=== PATIENT | male | born 1965 | race Caucasian/White ===

== ENCOUNTER 2017-08-29 10:21 | Day surgery (SDC) | payer BC, MEDICARE, SELFPAY ==
[2017-08-29 10:49] VITALS: BP 112/84; BP 140/83; BP 149/88; PULSE 74; PULSE 84; PULSE 99; RESP 18; RESP 20; TEMP 36.2; O2SAT 94
--- NOTE | 2017-08-29 11:12 | HMH.PMPROC ---
- Procedure Date: 08/29/17 Time: 11:12 Anesthesiologist:: Mani Christine MD Complications:: None Pre-procedure Diagnosis:: Sacroiliitis Post-procedure Diagnosis:: Same Indications for Procedure:: This patient is a pleasant 51-year-old white male who we are treating for degenerative disease of the cervical spine with cervical postlaminectomy syndrome and degenerative disease of lumbar spine. He currently has an intrathecal morphine pain pump in place. He is doing well with his intrathecal pain pump. He has some increasing pain over both SI joint. He does have a positive Geno's test bilaterally. He is tender over both SI joints. We will do bilateral SI joint injections under fluoroscopy today. Procedure Details:: B/L SI joint injection under fluoroscopy Informed consent was obtained and the risks and benefits of the procedure was explained to the patient. The patient was taken to the procedure room and placed prone on the procedure table. The patient was prepped using ChloraPrep. The skin and subcutaneous tissues overlying the SI joints were anesthetized using lidocaine. I placed a 22-gauge needle first in the left SI joint and second in the right SI joint. Needle placement was confirmed with dye. After this we injected 5 mL bupivacaine 0.25% and Depo-Medrol 40 mg into each SI joint. Patient tolerated the procedure well with no complication. Plan and Disposition:: We will follow-up with him in 2 weeks. We will reevaluate his symptoms at that time.
[2017-08-29 12:01] VITALS: BP 142/85; PULSE 90; RESP 18; O2SAT 96
== END 2017-08-29 11:30 | disposition home or self-care (01) ==
LOC: SC.PAINP 10:29
PROVIDERS: Family Provider Internal Medicine; PCP Internal Medicine; Visit Provider Anesthesiology
DX: M46.1 Sacroiliitis, not elsewhere classified (principal)
CPT/HCPCS: 27096; G0260; J1030

== ENCOUNTER 2017-12-23 12:52 | Day surgery (SDC) | payer BC, MEDICARE, SELFPAY ==
[2017-12-23 13:05] VITALS: BP 139/79; PULSE 79; RESP 18; TEMP 36.6; O2SAT 98; BMI 33.7
--- NOTE | 2017-12-23 13:13 | HMH.PMPROC ---
- Procedure Date: 12/23/17 Time: 13:20 Anesthesiologist:: Aleja Knowles APRN Complications:: None Pre-procedure Diagnosis:: Degenerative disc disease cervical spine multiple levels. Cervical postlaminectomy syndrome. Lumbar degenerative disc. Bilateral sacroiliitis. Post-procedure Diagnosis:: Same Indications for Procedure:: Patient is a pleasant 52-year-old white male who presents today for intrathecal pain pump refill. Patient has been doing well with his intrathecal morphine infusion of 0.55 mg per day. Patient denies any side effects. Patient states that most of his pain is in his neck and in his low back. Patient states that activity makes it worse. ROS General: no recent weight change, no fever, no sleep disturbances Respiratory: no cough, no shortness of air, no recurring pulmonary infections Cardiovascular/Peripheral Vascular: No chest pain, No palpitations, no edema, no shortness of breath. Gastrointestinal: no incontinence, normal bowel movements reported Genitourinary: no incontinence Musculoskeletal: Back pain, bilateral SI joint pain, neck pain Psychiatric: normal mood/ affect, Neurological: [denies weakness in extremities], [denies balance issues] Physical Exam General: Alert and oriented x3, no acute distress, pleasant and cooperative, [on room air] Lungs: Resps E/U, Symmetrical chest expansion, Eyes: PERRL Musculoskeletal: Flexion and extension of lumbar and cervical spine somewhat guarded secondary to pain, deep tendon reflexes normal, strength in upper and lower extremities [5/5], slightly antalgic gait noted Neurological: speech clear, community manager equal, no gross sensory deficits Procedure Details:: Informed consent was obtained and the risk and benefits of the procedure were explained to the patient. The patient was taken to the procedure room where noninvasive monitoring was placed including noninvasive blood pressure cuff and pulse oximeter. Patient's pump was interrogated. The area over the pump was cleansed with chlorhexidine as a cleansing solution. In sterile fashion the pump was accessed with a 22-gauge needle. Approximately 4 mL's were removed of the pump solution and discarded appropriately. The pump was then refilled with 20 mL's of pain 5 mg/mL. The infusion rate was up to 0.5 times per day. The needle was withdrawn and a bandage was placed over the puncture site. the patient tolerated the procedure well. Plan and Disposition:: We will follow-up with this patient and his next pain pump refill. Patient has been instructed to call us if he has any issues prior to his appointment. Also send the patient for urine drug screen today. This note was dictated using voice recognition software and may contain errors or omissions
[2017-12-23 13:18] VITALS: BP 145/89; PULSE 84; RESP 18; O2SAT 94
[2017-12-23 13:20] VITALS: BP 135/82; PULSE 88; RESP 18; O2SAT 95
--- NOTE | 2017-12-23 13:24 | P.PCN_ITS ---
- Procedure Date: 12/23/17 Time: 13:20 Anesthesiologist:: Aleja Knowles APRN Complications:: None Pre-procedure Diagnosis:: Degenerative disc disease cervical spine multiple levels. Cervical postlaminectomy syndrome. Lumbar degenerative disc. Bilateral sacroiliitis. Post-procedure Diagnosis:: Same Indications for Procedure:: Patient is a pleasant 52-year-old white male who presents today for intrathecal pain pump refill. Patient has been doing well with his intrathecal morphine infusion of 0.55 mg per day. Patient denies any side effects. Patient states that most of his pain is in his neck and in his low back. Patient states that activity makes it worse. ROS General: no recent weight change, no fever, no sleep disturbances Respiratory: no cough, no shortness of air, no recurring pulmonary infections Cardiovascular/Peripheral Vascular: No chest pain, No palpitations, no edema, no shortness of breath. Gastrointestinal: no incontinence, normal bowel movements reported Genitourinary: no incontinence Musculoskeletal: Back pain, bilateral SI joint pain, neck pain Psychiatric: normal mood/ affect, Neurological: [denies weakness in extremities], [denies balance issues] Physical Exam General: Alert and oriented x3, no acute distress, pleasant and cooperative, [ on room air] Lungs: Resps E/U, Symmetrical chest expansion, Eyes: PERRL Musculoskeletal: Flexion and extension of lumbar and cervical spine somewhat guarded secondary to pain, deep tendon reflexes normal, strength in upper and lower extremities [5/5], slightly antalgic gait noted Neurological: speech clear, lead etl developer equal, no gross sensory deficits Procedure Details:: Informed consent was obtained and the risk and benefits of the procedure were explained to the patient. The patient was taken to the procedure room where noninvasive monitoring was placed including noninvasive blood pressure cuff and pulse oximeter. Patient's pump was interrogated. The area over the pump was cleansed with chlorhexidine as a cleansing solution. In sterile fashion the pump was accessed with a 22-gauge needle. Approximately 4 mL's were removed of the pump solution and discarded appropriately. The pump was then refilled with 20 mL's of pain 5 mg/mL. The infusion rate was up to 0.5 times per day. The needle was withdrawn and a bandage was placed over the puncture site. the patient tolerated the procedure well. Plan and Disposition:: We will follow-up with this patient and his next pain pump refill. Patient has been instructed to call us if he has any issues prior to his appointment. Also send the patient for urine drug screen today. This note was dictated using voice recognition software and may contain errors or omissions
[2017-12-23 13:30] VITALS: BP 126/77; PULSE 77; RESP 18; TEMP 36.6; O2SAT 96
[2017-12-23 14:55] LABS: Amphetamine/Metha Screen,Urine Negative ng/mL (<1000); Barbiturates Screen,Urine Negative ng/mL (<200); Benzodiazepines Screen,Urine Negative ng/mL (200); Cannabinoid Screen,Urine Negative ng/mL (<50); Cocaine Screen,Urine Negative ng/g (<300); Methadone Screen,Urine Negative ng/mL (<300); Opiate Screen,Urine Positive ng/mL (<300); Phencyclidine Screen,Urine Negative ng/mL (<25)
[2017-12-30 18:11] LABS: Codeine Negative (Cutoff=100); Hydrocodone Negative (Cutoff=100); Hydromorphone Negative (Cutoff=100); Morphine Positive (.); Oxycodone (GC/MS) 2230 ng/mL (Cutoff=100)
[2018-01-01 06:15] LABS: Opiates Positive (.); Oxymorphone (GC/MS) 2450 ng/mL (Cutoff=100)
== END 2017-12-23 13:49 | disposition home or self-care (01) ==
PROVIDERS: Family Provider Internal Medicine; PCP Internal Medicine; Visit Provider Clinical Nurse Specialist Family Health
DX: M50.30 Other cervical disc degeneration, unspecified cervical region (principal); M96.1 Postlaminectomy syndrome, not elsewhere classified; M51.36 Other intervertebral disc degeneration, lumbar region; M46.1 Sacroiliitis, not elsewhere classified
CPT/HCPCS: 62370; 80305; 80361; 80365; G0480

== ENCOUNTER → 2020-01-02 10:02 | Outpatient (CLI) | payer OTHER, MEDICARE, SELFPAY ==
[2020-01-03 17:04] LABS: Covid-19 Nasal PCR Sendout UK Not Detected
== END ==
PROVIDERS: PCP Internal Medicine; Visit Provider Anesthesiology
DX: Z03.818 Encounter for observation for suspected exposure to other biological agents ruled out (principal)
CPT/HCPCS: U0003

== ENCOUNTER 2020-01-04 13:01 | Day surgery (SDC) | payer OTHER, MEDICARE, SELFPAY ==
[2020-01-04 13:09] VITALS: BP 141/81; PULSE 103; RESP 18; O2SAT 96; BMI 30.4
[2020-01-04 13:25] VITALS: BP 116/71; PULSE 93; RESP 20; O2SAT 95
[2020-01-04 13:27] VITALS: BP 120/85; PULSE 90; RESP 20; O2SAT 96
[2020-01-04 13:32] VITALS: BP 122/73; PULSE 85; RESP 18; O2SAT 96
--- NOTE | 2020-01-04 13:36 | HMH.PMPROC ---
- Procedure Date: 01/04/20 Time: 13:36 Anesthesiologist:: Aleja Knowles APRN Complications:: None Pre-procedure Diagnosis:: Degenerative disc disease lumbar spine with lumbar postlaminectomy syndrome Post-procedure Diagnosis:: Same Indications for Procedure:: Patient is a pleasant 54-year-old male who presents today for intrathecal pain pump refill and reprogram he rates his pain today a 4 out of 10 overall doing well. He does not need any changes to his 0.55 mg of morphine infusion. Patient recently had a left total knee replacement. Overall doing well with this however he did have a reaction post surgery to latex utilizing physical therapy which did set him back somewhat. [facility] #[id number] reviewed and appropriate. Patient did get some pain medication orally during his recovery From his surgery. Procedure Details:: I pain pump refill informed consent was obtained and the risk and benefits of the procedure were explained to the patient. The patient was taken to the procedure room where noninvasive monitoring was placed including noninvasive blood pressure cuff and pulse oximeter. Patient's pump was interrogated. The area over the pump was cleansed with chlorhexidine as a cleansing solution. In sterile fashion the pump was accessed with a 22-gauge needle. Approximately 9.5 mL's were removed of the pump solution and discarded appropriately. The pump was then refilled with 20 mL's of pain 7 mg/mL. The needle was withdrawn and a bandage was placed over the puncture site. The infusion rate was reprogrammed to continue at 0.55 mg/day. The patient tolerated the procedure well. Plan and Disposition:: We will see the patient back at his next intrathecal pain pump refill and reprogram he is been instructed to call the office if he has any issues prior to his next appointment. Dr. Christine has reviewed this note and agrees with this plan of care. This note was dictated using voice recognition software and may contain errors or omissions
== END 2020-01-04 13:32 | disposition home or self-care (01) ==
LOC: SC.PAINP 13:03
PROVIDERS: PCP Internal Medicine; Visit Provider Clinical Nurse Specialist Family Health
DX: M51.36 Other intervertebral disc degeneration, lumbar region (principal); M96.1 Postlaminectomy syndrome, not elsewhere classified
CPT/HCPCS: 95991

== ENCOUNTER 2020-05-08 14:46 | Day surgery (SDC) | payer OTHER, MEDICARE, SELFPAY ==
[2020-05-08 14:56] VITALS: BP 136/65; PULSE 93; RESP 18; TEMP 37; O2SAT 98; BMI 30.4
[2020-05-08 15:17] VITALS: BP 138/72; PULSE 98; RESP 18; O2SAT 98
[2020-05-08 15:19] VITALS: BP 140/74; PULSE 97; RESP 18; O2SAT 98
--- NOTE | 2020-05-08 15:37 | P.PCN_ITS ---
- Procedure Date: 05/08/20 Time: 15:37 Anesthesiologist:: Aleja Knowles APRN Complications:: None Pre-procedure Diagnosis:: Degenerative disc disease lumbar spine lumbar postlaminectomy syndrome Post-procedure Diagnosis:: Same Indications for Procedure:: Patient is a pleasant 54-year-old white male who presents today for thecal pain pump refill and reprogram he rates his pain today 4 out of 10 and doing well. He does not need any changes he is currently on a 0.55 mg morphine infusion. [facility] #[id number] reviewed and appropriate. Patient did have surgery he did receive medication from the surgeon. Patient denies side effects to his intrathecal therapy. Patient will be getting a drug screen today. Physical Exam General: Alert and oriented x3, no acute distress, pleasant and cooperative, [on room air] Lungs: Resps E/U, Symmetrical chest expansion, Eyes: PERRL Musculoskeletal: Flexion and extension of lumbar spine somewhat guarded secondary to pain, deep tendon reflexes normal, strength in upper and lower extremities [5/5], slightly antalgic gait noted Neurological: speech clear, community health consultant equal, no gross sensory deficits Procedure Details:: Informed consent was obtained and the risk and benefits of the procedure were explained to the patient. The patient was taken to the procedure room where noninvasive monitoring was placed including noninvasive blood pressure cuff and pulse oximeter. Patient's pump was interrogated. The area over the pump was cleansed with chlorhexidine as a cleansing solution. In sterile fashion the pu mp was accessed with a 22-gauge needle under fluoroscopy. Approximately 9 mL's were removed of the pump solution and discarded appropriately. The pump was then refilled with 20 mL's of morphine 10 mg/mL. The needle was withdrawn and a bandage was placed over the puncture site. The infusion rate was reprogrammed to continue to 0.55 mg/day. The patient tolerated the procedure well. Plan and Disposition:: I will follow-up with the patient at his next intrathecal pain pump refill and reprogram. Patient's been instructed to call the office if he has any issues prior to his next appointment. Dr. Christine has reviewed this note and agrees with this plan of care. This note was dictated using voice recognition software and may contain errors or omissions
[2020-05-08 15:42] VITALS: BP 142/80; PULSE 88; RESP 18; O2SAT 94
== END 2020-05-08 15:43 | disposition home or self-care (01) ==
LOC: SC.PAINP 14:52
PROVIDERS: PCP Internal Medicine; Visit Provider Clinical Nurse Specialist Family Health
DX: M51.16 Intervertebral disc disorders with radiculopathy, lumbar region (principal); M96.1 Postlaminectomy syndrome, not elsewhere classified; I10 Essential (primary) hypertension; E78.5 Hyperlipidemia, unspecified; K21.9 Gastro-esophageal reflux disease without esophagitis; F32.9 Major depressive disorder, single episode, unspecified; Z87.39 Personal history of other diseases of the musculoskeletal system and connective tissue; Z90.49 Acquired absence of other specified parts of digestive tract; Z87.442 Personal history of urinary calculi; Z91.040 Latex allergy status
CPT/HCPCS: 95991

== ENCOUNTER 2020-09-04 12:57 | Day surgery (SDC) | payer OTHER, SELFPAY ==
[2020-09-04 13:20] VITALS: BP 116/78; PULSE 63; TEMP 36.6; O2SAT 98; BMI 32.8
[2020-09-04 13:53] VITALS: BP 128/77; PULSE 93; RESP 18; O2SAT 98
[2020-09-04 13:58] VITALS: BP 129/78; PULSE 92; RESP 18; O2SAT 98
--- NOTE | 2020-09-04 14:08 | P.PCN_ITS ---
- Procedure Date: 09/04/20 Time: 14:09 Anesthesiologist:: Aleja Knowles APRN Complications:: None Pre-procedure Diagnosis:: Degenerative disc disease lumbar spine lumbar radiculopathy postlaminectomy syndrome Post-procedure Diagnosis:: Same Indications for Procedure:: Patient is a pleasant 54-year-old white male who presents today for intrathecal pain pump refill and reprogram. He denies any side effects and states he does not need any changes he rates his pain today a 3 out of 10. He is currently in a infusion of 0.55 mg of morphine a day. [facility] #[id number] reviewed and janet ropriate. Drug screens have been appropriate. Physical Exam General: Alert and oriented x3, no acute distress, pleasant and cooperative, [on room air] Lungs: Resps E/U, Symmetrical chest expansion, Eyes: PERRL Musculoskeletal: Flexion and extension of lumbar spine somewhat guarded secondary to pain, deep tendon reflexes normal, strength in upper and lower extremities [5/5], antalgic gait noted Neurological: speech clear, educational sign language interpreter equal, no gross sensory deficits Procedure Details:: Informed consent was obtained and the risk and benefits of the procedure were explained to the patient. The patient was taken to the procedure room where noninvasive monitoring was placed including noninvasive blood pressure cuff and pulse oximeter. Patient's pump was interrogated. The area over the pump was cleansed with chlorhexidine as a cleansing solution. In sterile fashion the pump was accessed with a 22-gauge needle. Approximately 9.5 mL's were removed of the pump solution and discarded appropriately. The pump was then refilled with 20 mL's of morphine 10 mg/mL. The needle was withdrawn and a bandage was placed over the puncture site. The infusion rate was reprogrammed to continue at 0.55 mg/day. The patient tolerated the procedure well. Plan and Disposition:: We will follow up with the patient at his next intrathecal pain pump refill and reprogram he has been instructed to call the office if he has any issues prior to his next appointment. Dr. Christine has reviewed this note and agrees with this plan of care. This note was dictated using voice recognition software and may contain errors or omissions
[2020-09-04 14:15] VITALS: BP 119/72; PULSE 80; RESP 20; O2SAT 98
== END 2020-09-04 14:15 | disposition home or self-care (01) ==
LOC: SC.PAINP 12:58
PROVIDERS: PCP Internal Medicine; Visit Provider Clinical Nurse Specialist Family Health
DX: M51.16 Intervertebral disc disorders with radiculopathy, lumbar region (principal); M96.1 Postlaminectomy syndrome, not elsewhere classified; I25.10 Atherosclerotic heart disease of native coronary artery without angina pectoris; I10 Essential (primary) hypertension; E78.5 Hyperlipidemia, unspecified; K21.9 Gastro-esophageal reflux disease without esophagitis; Z87.39 Personal history of other diseases of the musculoskeletal system and connective tissue; Z87.442 Personal history of urinary calculi; Z90.49 Acquired absence of other specified parts of digestive tract; E11.9 Type 2 diabetes mellitus without complications
CPT/HCPCS: 95991

== ENCOUNTER 2020-12-11 13:14 | Day surgery (SDC) | payer OTHER, SELFPAY ==
[2020-12-11 13:33] VITALS: BP 140/75; PULSE 75; RESP 18; TEMP 36.6; O2SAT 98; BMI 33.5
[2020-12-11 13:55] VITALS: BP 142/77; PULSE 78; RESP 18; O2SAT 99
--- NOTE | 2020-12-11 13:57 | HMH.PMPROC ---
- Procedure Date: 12/11/20 Time: 13:57 Anesthesiologist:: Aleja Knowles APRN Complications:: None Pre-procedure Diagnosis:: Degenerative disc disease lumbar spine lumbar radiculopathy, postlaminectomy syndrome Post-procedure Diagnosis:: Same Indications for Procedure:: Patient is a pleasant 55-year-old white male who presents today for intrathecal pain pump refill and reprogram. He denies side effects with medication he is currently on morphine going at 0.55 mg/day. Patient [facility] #[id number] reviewed and appropriate. Drug screens have been appropriate. He does not need any changes today he rates his pain today a 2 out of 10. Procedure Details:: Informed consent was obtained and the risk and benefits of the procedure were explained to the patient. The patient was taken to the procedure room where noninvasive monitoring was placed including noninvasive blood pressure cuff and pulse oximeter. Patient's pump was interrogated. The area over the pump was cleansed with chlorhexidine as a cleansing solution. In sterile fashion the pump was accessed with a 22-gauge needle. Approximately 11.5 mL's were removed of the pump solution and discarded appropriately. The pump was then refilled with 20 mL's of morphine 7 mg/mL. The needle was withdrawn and a bandage was placed over the puncture site. The infusion rate was reprogrammed to continue at 0.55 mg/day. The patient tolerated the procedure well. Plan and Disposition:: I will see the patient back in at his next intrathecal pain pump refill and reprogram he has been instructed to call the office if he has any issues prior to his next appointment. Dr. Christine has reviewed this note and agrees with this plan of care. This note was dictated using voice recognition software and may contain errors or omissions
[2020-12-11 14:04] VITALS: BP 142/79; PULSE 79; RESP 18; O2SAT 99
[2020-12-11 14:35] VITALS: BP 140/75; PULSE 75; RESP 18; TEMP 36.6; O2SAT 98
[2020-12-11 15:22] LABS: Amphetamine/Metha Screen,Urine Negative ng/ml (<1000)
[2020-12-11 15:23] LABS: Barbiturates Screen,Urine Negative ng/ml (<200); Benzodiazepines Screen,Urine Negative ng/ml (<200)
[2020-12-11 15:24] LABS: Cannabinoid Screen,Urine Negative ng/ml (<50)
[2020-12-11 15:25] LABS: Cocaine Screen,Urine Negative ng/ml (<300); Methadone Screen,Urine Negative ng/ml (<300)
[2020-12-11 15:26] LABS: Opiate Screen,Urine Negative ng/ml (<300)
[2020-12-11 15:28] LABS: Phencyclidine Screen,Urine Negative ng/ml (<25)
== END 2020-12-11 14:15 | disposition home or self-care (01) ==
PROVIDERS: PCP Internal Medicine; Visit Provider Clinical Nurse Specialist Family Health
DX: M51.16 Intervertebral disc disorders with radiculopathy, lumbar region (principal); M96.1 Postlaminectomy syndrome, not elsewhere classified; I25.10 Atherosclerotic heart disease of native coronary artery without angina pectoris; I10 Essential (primary) hypertension; E78.5 Hyperlipidemia, unspecified; M19.90 Unspecified osteoarthritis, unspecified site; E11.9 Type 2 diabetes mellitus without complications; E03.9 Hypothyroidism, unspecified; K21.9 Gastro-esophageal reflux disease without esophagitis; Z90.49 Acquired absence of other specified parts of digestive tract
CPT/HCPCS: 80305; 95991

== ENCOUNTER 2021-04-02 12:53 | Day surgery (SDC) | payer OTHER, SELFPAY ==
[2021-04-02 13:10] VITALS: BP 138/78; PULSE 75; RESP 18; TEMP 36.6; O2SAT 97; BMI 33.5
[2021-04-02 13:18] VITALS: BP 148/94; PULSE 78; RESP 18
--- NOTE | 2021-04-02 13:20 | P.PCN_ITS ---
- Procedure Date: 04/02/21 Time: 13:20 Anesthesiologist:: Allyn Santoyo APRN Complications:: None Pre-procedure Diagnosis:: Degenerative disc disease lumbar spine with lumbar radiculopathy symptoms, postlaminectomy syndrome lumbar spine Post-procedure Diagnosis:: Same Indications for Procedure:: Patient is a 55-year-old white male who presents today for intrathecal pain pump refill and reprogram. He has been treated for degenerative disc disease lumbar spine with lumbar radiculopathy symptoms. Patient rates his pain a 3 out of 10. His [facility] #[id number] is appropriate. Drug screen is appropriate. Morphine equivalent is 0. He does not need any changes at this time. Patient does say he lost his PTC device. He will contact [employer] to get a replacement. He says his boluses did give him significant relief. Physical exam General: Alert and oriented x3, no acute distress, pleasant and cooperative, [on room air] Lungs: Respirations even and unlabored, symmetrical chest expansion Eyes: PERRL Musculoskeletal: Flexion and extension of lumbar [spine] somewhat guarded secondary to pain, strength in upper and lower extremities [5/5], [antalgic gait noted] Neurological: Speech clear, [boilermaker industrial boilers equal], no gross sensory deficit Procedure Details:: Informed consent was obtained and the risk and benefits of the procedure were explained to the patient. The patient was taken to the procedure room where noninvasive monitoring was placed including noninvasive blood pressure cuff and pulse oximeter. Patient's pump was interrogated. The area over the pump was cleansed with chlorhexidine as a cleansing solution. In sterile fashion the pump was accessed with a 22-gauge needle. Approximately 10 mls of the pump solution was removed and discarded appropriately. The pump was then refilled with 20 mL's of morphine 7 mg per male. The needle was withdrawn and a bandage was placed over the puncture site. The infusion rate was reprogrammed at morphine at 0.55 mg/day. The patient tolerated well with no complication. Plan and Disposition:: We will see the patient back at the next refill. If the patient has any questions, contact the clinic.
[2021-04-02 13:23] VITALS: BP 149/90; PULSE 83; RESP 18; O2SAT 95
[2021-04-02 13:40] VITALS: BP 129/70; PULSE 18; PULSE 74; O2SAT 97
[2021-04-02 16:34] LABS: Amphetamine/Metha Screen,Urine Negative ng/ml (<1000)
[2021-04-02 16:36] LABS: Barbiturates Screen,Urine Negative ng/ml (<200)
[2021-04-02 16:37] LABS: Benzodiazepines Screen,Urine Negative ng/ml (<200)
[2021-04-02 16:38] LABS: Cannabinoid Screen,Urine Negative ng/ml (<50); Cocaine Screen,Urine Negative ng/ml (<300)
[2021-04-02 16:39] LABS: Methadone Screen,Urine Negative ng/ml (<300); Opiate Screen,Urine Negative ng/ml (<300)
[2021-04-02 16:40] LABS: Phencyclidine Screen,Urine Negative ng/ml (<25)
[2021-04-11 14:18] LABS: Opiates Negative (Cutoff=100)
== END 2021-04-02 13:40 | disposition home or self-care (01) ==
PROVIDERS: PCP Internal Medicine; Visit Provider Clinical Nurse Specialist Family Health
DX: M51.16 Intervertebral disc disorders with radiculopathy, lumbar region (principal); M96.1 Postlaminectomy syndrome, not elsewhere classified
CPT/HCPCS: 80305; 80361; 80365; 95991; G0480

== ENCOUNTER 2021-07-16 13:06 | Day surgery (SDC) | payer OTHER, SELFPAY ==
--- NOTE | 2021-07-16 13:24 | P.PCN_ITS ---
- Procedure Date: 07/16/21 Time: 13:24 Anesthesiologist:: Allyn Santoyo APRN Complications:: None Pre-procedure Diagnosis:: Degenerative disc disease lumbar spine with lumbar radiculopathy symptoms Post-procedure Diagnosis:: Same Indications for Procedure:: Patient is a pleasant 55-year-old male who presents today for intrathecal pain pump [refill] [and reprogram]. The patient is being treated for chronic neck pain. He does have chronic low back pain. The pump does not give him much relief of the pain to his low back area. He says it is primarily in his hip and knee. He does see an orthopedic provider for this. For his neck, he says he is doing well with his intrathecal therapy. Patient rates pain a 4 out of 10. Drug screen is appropriate. [facility] [ ] has been reviewed and is appropriate. Physical exam General: Alert and oriented x3, no acute distress, pleasant and cooperative, [on room air] Lungs: Respirations even and unlabored, symmetrical chest expansion Eyes: PERRL Musculoskeletal: Flexion and extension of cervical and lumbar [spine] somewhat guarded secondary to pain, [antalgic gait noted] Neurological: Speech clear, no gross sensory deficit Procedure Details:: Informed consent was obtained and the risk and benefits of the procedure were explained to the patient. The patient was taken to the procedure room where noninvasive monitoring was placed including noninvasive blood pressure cuff and pulse oximeter. Patient's pump was interrogated. The area over the pump was cleansed with chlorhexidine as a cleansing solution. In sterile fashion the pump was accessed with a 22-gauge needle. Approximately 11 mls of the pump solution was removed and discarded appropriately. The pump was then refilled with 20 mL's of morphine 7 mg per male. The needle was withdrawn and a bandage was placed over the puncture site. The infusion rate was reprogrammed at morphine at 0.55 mg/day. The patient tolerated well with no complication. Plan and Disposition:: Patient's pump will be end-of-life on June 2022. We will see the patient back in the clinic at the next intrathecal refill. Carlos Alberto scott has been instructed to contact the clinic with any concerns before the next appointment. Dr. Christine has reviewed this note and agrees with this plan of care. This note was dictated using voice recognition software and make contain errors or omissions.
[2021-07-16 13:27] VITALS: BP 147/72; PULSE 108; RESP 18; TEMP 37.3; O2SAT 95; BMI 33.5
[2021-07-16 13:51] VITALS: BP 113/74; PULSE 103; RESP 18; O2SAT 96
[2021-07-16 13:52] VITALS: PULSE 106; RESP 18; O2SAT 94
[2021-07-16 14:05] VITALS: BP 126/80; PULSE 98; RESP 20; O2SAT 97
[2021-07-16 20:18] LABS: Amphetamine/Metha Screen,Urine Negative ng/ml (<1000)
[2021-07-16 20:19] LABS: Barbiturates Screen,Urine Negative ng/ml (<200)
[2021-07-16 20:20] LABS: Benzodiazepines Screen,Urine Negative ng/ml (<200); Cannabinoid Screen,Urine Negative ng/ml (<50)
[2021-07-16 20:21] LABS: Cocaine Screen,Urine Negative ng/ml (<300)
[2021-07-16 20:22] LABS: Methadone Screen,Urine Negative ng/ml (<300)
[2021-07-16 20:23] LABS: Opiate Screen,Urine Negative ng/ml (<300)
[2021-07-16 20:24] LABS: Phencyclidine Screen,Urine Negative ng/ml (<25)
== END 2021-07-16 14:05 | disposition home or self-care (01) ==
LOC: SC.PAINP 13:07
PROVIDERS: PCP Internal Medicine; Visit Provider Clinical Nurse Specialist Family Health
DX: M51.16 Intervertebral disc disorders with radiculopathy, lumbar region (principal); Z45.1 Encounter for adjustment and management of infusion pump
CPT/HCPCS: 80305; 95991

== ENCOUNTER 2021-10-01 14:09 | Day surgery (SDC) | payer OTHER, SELFPAY ==
--- NOTE | 2021-10-01 14:16 | HMH.PMPROC ---
- Procedure Date: 10/01/21 Time: 14:16 Anesthesiologist:: Allyn Santoyo APRN Complications:: None Pre-procedure Diagnosis:: Degenerative disc disease lumbar spine with lumbar radiculopathy symptoms Post-procedure Diagnosis:: Same Indications for Procedure:: Patient is a 56-year-old white male who presents today for intrathecal pain pump refill and reprogram. He is having significant hip pain. He is scheduled to undergo a hip replacement, however, is having issues with his insurance company. They advised the patient he needed to be nicotine free for 6 weeks. Patient has never smoked or used any type of smokeless tobacco. He did have to go for nicotine test. He is currently on morphine at 0.55 mg/day and would like an increase. He denies any side effects. Physical exam General: Alert and oriented x3, no acute distress, pleasant and cooperative Lungs: Respirations even and unlabored, symmetrical chest expansion Eyes: PERRL Musculoskeletal: Flexion and extension of lumbar [spine] somewhat guarded secondary to pain, [antalgic gait noted] Neurological: Speech clear, no gross sensory deficit Procedure Details:: Informed consent was obtained and the risk and benefits of the procedure were explained to the patient. The patient was taken to the procedure room where noninvasive monitoring was placed including noninvasive blood pressure cuff and pulse oximeter. Patient's pump was interrogated. The area over the pump was cleansed with chlorhexidine as a cleansing solution. In sterile fashion the pump was accessed with a 22-gauge needle. Approximately 13 mls of the pump solution was removed and discarded appropriately. The pump was then refilled with 20 mL's of morphine 7 mg/mL. The needle was withdrawn and a bandage was placed over the puncture site. The infusion rate was reprogrammed at increased to morphine at 0.63 mg/day. The patient tolerated well with no complication. Plan and Disposition:: Patient has been instructed to contact the clinic with any concerns before the next appointment. Dr. Christine has reviewed this note and agrees with this plan of care. This note was dictated using voice recognition software and make contain errors or omissions.
[2021-10-01 14:20] VITALS: BP 117/84; PULSE 95; RESP 20; TEMP 36.7; O2SAT 96; BMI 32.2
[2021-10-01 14:42] VITALS: BP 115/80; PULSE 99; RESP 18; O2SAT 95
[2021-10-01 14:46] VITALS: BP 116/82; PULSE 92; RESP 20; O2SAT 96
[2021-10-01 15:00] VITALS: BP 141/81; PULSE 93; RESP 20; O2SAT 96
[2021-10-01 16:32] LABS: Amphetamine/Metha Screen,Urine Negative ng/ml (<1000); Barbiturates Screen,Urine Negative ng/ml (<200)
[2021-10-01 16:33] LABS: Benzodiazepines Screen,Urine Negative ng/ml (<200)
[2021-10-01 16:34] LABS: Cannabinoid Screen,Urine Negative ng/ml (<50); Cocaine Screen,Urine Negative ng/ml (<300)
[2021-10-01 16:35] LABS: Methadone Screen,Urine Negative ng/ml (<300)
[2021-10-01 16:36] LABS: Opiate Screen,Urine Negative ng/ml (<300); Phencyclidine Screen,Urine Negative ng/ml (<25)
[2021-10-14 13:19] LABS: Codeine Negative (Cutoff=100); Hydrocodone Negative (Cutoff=100); Hydromorphone Negative (Cutoff=100); Morphine Positive (.); Opiates Positive (.); Oxymorphone (GC/MS) 204 ng/mL (Cutoff=100)
== END 2021-10-01 15:00 | disposition home or self-care (01) ==
LOC: SC.PAINP 14:10
PROVIDERS: PCP Internal Medicine; Visit Provider Clinical Nurse Specialist Family Health
DX: M51.16 Intervertebral disc disorders with radiculopathy, lumbar region (principal); Z45.1 Encounter for adjustment and management of infusion pump
CPT/HCPCS: 62370; 80305; 80361; 80365; G0480

== ENCOUNTER 2022-01-07 12:52 | Day surgery (SDC) | payer OTHER, SELFPAY ==
[2022-01-07 13:07] VITALS: BP 188/83; PULSE 114; RESP 20; TEMP 36.8; O2SAT 95; BMI 33.5
[2022-01-07 13:19] VITALS: BP 148/92; PULSE 109; RESP 18; O2SAT 95
[2022-01-07 13:23] VITALS: BP 151/92; PULSE 107; RESP 18; O2SAT 96
--- NOTE | 2022-01-07 13:29 | HMH.PMPROC ---
- Procedure Date: 01/07/22 Time: 13:29 Anesthesiologist:: MORAIMA Hein Complications:: None Pre-procedure Diagnosis:: Degenerative disc disease of lumbar spine with lumbar radiculopathy symptoms Post-procedure Diagnosis:: Same Indications for Procedure:: Patient is a pleasant 56-year-old male who presents today for intrathecal pain pump refill and reprogram. The patient is being treated for degenerative disc disease of lumbar spine with lumbar radiculopathy symptoms. Patient is currently being managed with morphine 7 mg/mL at a rate of 0.629 mg/day. Patient denies any side effects from this medication. Patient rates pain a 3 out of 10. Drug screen is appropriate. Serge [id number] with an active morphine equivalent of 0 has been reviewed and is appropriate. Patient's medtronic pump is at end-of-life. We will schedule the patient for a pump replacement around May or June. Physical exam General: Alert and oriented x3, no acute distress, pleasant and cooperative, [on room air] Lungs: Respirations even and unlabored, symmetrical chest expansion Eyes: PERRL Musculoskeletal: Flexion and extension of lumbar [spine] somewhat guarded secondary to pain, [antalgic gait noted] Neurological: Speech clear, no gross sensory deficit Procedure Details:: Informed consent was obtained and the risk and benefits of the procedure were explained to the patient. The patient was taken to the procedure room where noninvasive monitoring was placed including noninvasive blood pressure cuff and pulse oximeter. Patient's pump was interrogated. The area over the pump was cleansed with chlorhexidine as a cleansing solution. [Fluoroscopy was used to access the pump]. In sterile fashion the pump was accessed with a 22-gauge needle. Approximately 11 mls of the pump solution was removed and discarded appropriately. The pump was then refilled with 20 mL's of morphine 7 mg/mL. The needle was withdrawn and a bandage was placed over the puncture site. The infusion rate was reprogrammed and continued at morphine 0.629 mg/day. The patient tolerated well with no complication. Plan and Disposition:: We will see the patient back in the clinic at the next intrathecal refill. Patient has been instructed to contact the clinic with any concerns before the next appointment. Dr. Christine has reviewed this note and agrees with this plan of care. This note was dictated using voice recognition software and make contain errors or omissions.
[2022-01-07 13:40] VITALS: BP 139/81; PULSE 94; RESP 20; O2SAT 97
== END 2022-01-07 13:40 | disposition home or self-care (01) ==
LOC: SC.PAINP 12:53
PROVIDERS: PCP Internal Medicine; Visit Provider Student in an Organized Health Care Education/Training Program
DX: M51.16 Intervertebral disc disorders with radiculopathy, lumbar region (principal); Z45.1 Encounter for adjustment and management of infusion pump; I25.10 Atherosclerotic heart disease of native coronary artery without angina pectoris; I10 Essential (primary) hypertension; E78.5 Hyperlipidemia, unspecified; E11.9 Type 2 diabetes mellitus without complications; E03.9 Hypothyroidism, unspecified; M19.90 Unspecified osteoarthritis, unspecified site; Z90.49 Acquired absence of other specified parts of digestive tract; Z91.040 Latex allergy status; Z79.84 Long term (current) use of oral hypoglycemic drugs; Z79.899 Other long term (current) drug therapy
CPT/HCPCS: 95991

== ENCOUNTER 2022-04-23 10:51 | Day surgery (SDC) | payer OTHER, SELFPAY ==
[2022-04-23 10:54] VITALS: BP 157/70; PULSE 63; RESP 18; TEMP 37.2; O2SAT 98; BMI 33.7
[2022-04-23 11:22] VITALS: BP 133/70; PULSE 86; RESP 18
[2022-04-23 11:23] VITALS: BP 133/70; PULSE 86; RESP 18; O2SAT 96
--- NOTE | 2022-04-23 11:39 | P.PCN_ITS ---
Procedure Date: 04/23/22 Time: 11:40 Anesthesiologist:: Shakeel Luz CRNA Complications:: None Pre-procedure Diagnosis:: Degenerative disc disease lumbar spine multilevels. Lumbar radiculopathy symptoms Post-procedure Diagnosis:: Same Indications for Procedure:: This patient is a pleasant 56-year-old male who presents to our clinic today for intrathecal pain pump refill. He is currently being managed with morphine sulfate 7 mg/mL at a rate of 0.629 mg a day. Patient is doing very well on his current rate. He does not complain of any pain. Does not complain of any side effects. Procedure Details:: Details of the procedure were explained to the patient. The patient taken to procedure room placed in the sitting position. There was some difficulty accessing his Medtronic pump. We laid the patient prone we accessed the pump wi th ease under fluoroscopy guidance. 9 cc of fluid was removed and discarded appropriately. The pump was then filled with 20 cc of morphine sulfate 7 mg/mL. This was done under fluoroscopy guidance. Patient tolerated the procedure without difficulty. There were no complications. Plan and Disposition:: Patient was discharged without incident.
[2022-04-23 11:43] VITALS: BP 142/74; PULSE 77; RESP 18; O2SAT 98
== END 2022-04-23 11:44 | disposition home or self-care (01) ==
PROVIDERS: PCP Internal Medicine; Visit Provider Nurse Anesthetist, Certified Registered
DX: M51.16 Intervertebral disc disorders with radiculopathy, lumbar region (principal)
CPT/HCPCS: 95991

== ENCOUNTER → 2022-06-10 09:29 | Outpatient (POV) | payer OTHER, SELFPAY ==
[2022-06-10 09:57] VITALS: BP 129/78; PULSE 86; RESP 18; TEMP 36.6; O2SAT 96; BMI 33.7
--- NOTE | 2022-06-10 10:57 | EXP.PAIN.SOA ---
[facility] Pain Management SOAP Note Subjective:: Patient is a pleasant 56-year-old male who presents today for follow-up. We are currently treating the patient for degenerative disc disease of lumbar spine multilevels with lumbar radiculopathy symptoms. Today the patient rates his pain a 3 out of 10. He states the pain is primarily in his low back that radiates into his bilateral lower extremities. He is currently managed with morphine 7 mg/mL at a rate of 0.629 mg/day. Patient denies any side effects from this medication. He states this medication does adequately help manage his pain. Patient has had this pump in place for 7 years. He has battery end-of-life date is around June 25 and does need to be scheduled for removal and replacement. Patient patient does have [employer] insurance and was previously in [facility] patient without home refills. Patient is interested in having a replacement however he would like to know the cost before proceeding forward. Patient's Serge is [phone]. It has been reviewed and appropriate. Review of Systems: General: No recent weight changes, no fever, no sleep disturbances Respiratory: No cough, no shortness of air, no recurring pulmonary infections Cardiovascular/peripheral vascular: No chest pain, no palpitations, no edema, no shortness of breath Gastrointestinal: No new onset incontinence, normal bowel movements reported Genitourinary: No new onset incontinence Musculoskeletal: Low back pain, bilateral leg pain Psychiatric: [Normal mood/affect] Neurological: [Denies weakness in extremities], [denies balance issues] Objective:: Physical Exam: General: Alert and oriented x3, no acute distress, pleasant and cooperative Lungs: Respirations even and unlabored, symmetrical chest expansion Eyes: PERRL Musculoskeletal: Flexion and extension of lumbar [spine] somewhat guarded secondary to pain, [antalgic gait noted] Neurological: Speech clear, no gross sensory deficit Assessment:: Degenerative disc disease lumbar spine multilevels with lumbar radiculopathy symptoms Plan:: Patient continues to have significant relief of his low back and radicular symptoms using his intrathecal pump. I have discussed with the patient regarding having a removal and replacement of his pump. Risk and benefits were discussed with the patient. He would like to proceed forward once he has a better idea of the out of pocket cost. Patient will be referred to the billing department and a pump leather goods sales representative will contact the patient to go over details. We will submit for intrathecal pump removal and replacement approval and contact the patient once we have this. Patient has been instructed to contact the clinic with any concerns before the next appointment. Dr. Christine has reviewed this note and agrees with this plan of care. This note was dictated using voice recognition software and make contain errors or omissions. -- It Is medically necessary for this patient to continue to have their intrathecal pump refilled at regular intervals. This patient had an intrathecal pain pump implanted after meeting criteria of chronic intractable pain for greater than 3 months and failing conservative treatments. Patient has committed and been compliant to the treatment plan and all planned follow up care. Since implantation of the intrathecal pain pump, the patient has had decreased pain and been more functional. Oral medications have been reduced including intake of oral opioids. Patient continues to do well with intrathecal therapy with decrease in pain symptoms and increase in functional status. Stopping intrathecal medications can lead to life threatening withdrawal, seizures, cardiac arrest, severe pain, and possible . Pumps that are not refilled at regular intervals can be damages and cause and need for replacement. We continually titrate dose and concentration to optimize pain relief and function. We are limited in concentration for certain drugs to safely deliver me
== END ==
PROVIDERS: PCP Internal Medicine; Visit Provider Nurse Practitioner Family
DX: M51.16 Intervertebral disc disorders with radiculopathy, lumbar region (principal); Z79.899 Other long term (current) drug therapy
CPT/HCPCS: 99212; G0463

== ENCOUNTER 2022-07-02 10:52 | Day surgery (SDC) | payer OTHER, SELFPAY ==
[2022-07-02 11:04] VITALS: BP 141/66; PULSE 88; RESP 18; TEMP 37.2; O2SAT 98; BMI 32.8
[2022-07-02 11:12] VITALS: BP 170/100; PULSE 84; RESP 18; O2SAT 98
[2022-07-02 11:13] VITALS: BP 170/100; PULSE 84; RESP 18; O2SAT 98
[2022-07-02 11:40] VITALS: BP 117/68; PULSE 82; RESP 18; O2SAT 98
--- NOTE | 2022-07-02 11:56 | EXP.PAIN.PRO ---
Procedure Date: 07/02/22 Time: 11:30 Anesthesiologist:: Shakeel Luz CRNA Complications:: None Pre-procedure Diagnosis:: Degenerative disc disease lumbar spine multilevels. Lumbar radiculopathy. Post-procedure Diagnosis:: Same. Indications for Procedure:: Patient is a pleasant 56-year-old male who presents today for intrathecal pain pump refill. Patient is reaching end-of-life with his current pump of 7 years. We will arrange for him to have pump replacement next month. He is currently being managed with morphine sulfate 7 mg/mL at 0.6296 mg/day. He is doing very well on his current settings. Procedure Details:: Details of the procedure were explained to the patient. The patient taken the procedure room placed in the sitting position. The area over the pump was cleansed using chlorhexidine as a cleansing solution. The pump was then accessed with ease using a 22-gauge needle. 13 mL of solution was removed and discarded appropriately. The pump was then filled with 20 cc of morphine sulfate 7 mg/mL. Plan and Disposition:: Patient was discharged without incident.
== END 2022-07-02 11:40 | disposition home or self-care (01) ==
LOC: SC.PAINP 10:53
PROVIDERS: PCP Internal Medicine; Visit Provider Nurse Anesthetist, Certified Registered
DX: M51.16 Intervertebral disc disorders with radiculopathy, lumbar region (principal)
CPT/HCPCS: 95991

== ENCOUNTER → 2022-08-01 11:28 | Outpatient (CLI) | payer OTHER, SELFPAY ==
[2022-08-01 13:07] LABS: Basophils # 0.1 K/mm3 (0-0.2); Basophils % 0.7 % (0.1-2.0); Eosinophils # 0.1 K/mm3 (0.0-0.4); Eosinophils % 1.9 % (0.1-12.0); Hematocrit 38.6 % (42.0-52.0); Hemoglobin 12.9 g/dL (14.1-18.0); Lymphocytes # 2.4 K/mm3 (0.7-4.5); Lymphocytes % 36.7 % (10-50); Mean Corpuscular HGB Conc 33.3 g/dL (31.8-35.4); Mean Corpuscular Hemoglobin 29.5 pg (27.0-31.2); Mean Corpuscular Volume 88.7 fl (80-94); Mean Platelet Volume 10.3 fl (7.4-10.4); Monocytes # 0.5 K/mm3 (0.1-1.0); Monocytes % 7.2 % (1.7-9.3); Neutrophils # 3.5 K/mm3 (1.8-7.8); Neutrophils % 53.5 % (37.0-80.0); Platelet Count 220 K/mm3 (142-424); Red Blood Count 4.35 M/mm3 (4.60-6.20); Red Cell Distribution Width 13.1 % (11.5-17.5); White Blood Count 6.6 K/mm3 (4.8-10.8)
[2022-08-01 13:29] LABS: Hemoglobin A1C 6.8 % (4.0-6.0)
[2022-08-01 14:15] LABS: Anion Gap 13.2 mEq/L (5-15); Blood Urea Nitrogen 16 mg/dl (9-20); Calcium 9.9 mg/dl (8.4-10.2); Carbon Dioxide 22 mmol/L (22.0-30.0); Chloride 105 mmol/L (98-107); Estimated Glomerular Filt Rate 78 ml/min (>60); GFR (African American) 94 ML/MIN (>60); Glucose 142 mg/dl (74-100); Potassium 4.2 mmoL/L (3.5-5.1); Sodium 136 mmol/L (136-145)
== END ==
PROVIDERS: PCP Internal Medicine; Visit Provider Anesthesiology
DX: Z01.812 Encounter for preprocedural laboratory examination (principal); Z45.1 Encounter for adjustment and management of infusion pump
CPT/HCPCS: 36415; 80048; 83036; 85025

== ENCOUNTER 2022-08-02 07:12 | Day surgery (SDC) | payer OTHER, SELFPAY ==
[2022-07-31 12:40] VITALS: BMI 32.2
[2022-08-02 07:29] VITALS: BP 138/77; PULSE 88; RESP 18; TEMP 36.3; O2SAT 96
[2022-08-02 07:45] LABS: POC Glucose,Bedside 121 (70-110)
--- NOTE | 2022-08-02 08:05 | EXP.ANES.CKL ---
[facility] Disclaimer: The information contained in this section may have been updated after the patient was seen, as this information can be updated by other users. Medical History Diabetes History of gastroesophageal reflux (GERD) History of lipoma Hyperlipidemia Hypertension Surgical History History of knee replacement History of neck surgery Family History Other Family history of cancer Family history of diabetes mellitus (DM) Family history of heart disease No significant family history Social History Smoking Status: Never smoker second hand exposure: No alcohol intake: never substance use type: denies use current occupational status: employed Travel in the last 8 weeks: None household members: spouse housing: house current occupation: [employer] [address] current occupational exposures/hazards: No caffeine: Yes [facility] Anesthesia Checklist Patient Identification Patient Identification: Arm Band Structural Data Admitted From: Home Planned Operative Procedure/s: Replacement of Intrathecal Pain Pump Generator Consent for Planned Operative Procedure(s) Verified: Yes Verified Documents: Surgical Consent and History and Physical NPO Status Verified Time NPO: 00:00 Additional verifications Anesthesia Reactions: No Hx Blood Transfusions: No Blood Transfusion Reaction: No Airway Assessment C-Spine Mobility Assessed: Yes TMJ Mobility Assessed: Yes Dentition: Edentulous Neurological Assessment Level of Consciousness: Awake and Alert Anesthesia Plan Anesthesia Risk discussed: Yes Anesthesia Plan: Verified ASA Class: II Anesthesia Type: MAC
--- NOTE | 2022-08-02 09:35 | SUR.OPER ---
0932 intrathecal pain pump generator with SN: [id number] removed
[2022-08-02 10:05] VITALS: BP 153/90; PULSE 84; RESP 18; TEMP 36.1; O2SAT 97
[2022-08-02 10:15] VITALS: BP 148/82; PULSE 80; RESP 18; O2SAT 98
[2022-08-02 10:25] VITALS: BP 147/81; PULSE 74; RESP 16; O2SAT 94
[2022-08-02 10:35] VITALS: BP 149/91; PULSE 73; RESP 17; O2SAT 98
--- NOTE | 2022-08-02 10:50 | SUR.PHASEII ---
Verbal order per MD Christine-pt to continue all current home medications
--- NOTE | 2022-08-02 13:18 | P.OP_ITS ---
Date of procedure: 08/02/22 Pre-op Diagnosis:: Degenerative disc disease of lumbar spine multilevel with lumbar radiculopathy symptoms with intrathecal morphine pain pump in place. End-of-life intrathecal pain pump battery Post-op Diagnosis:: Same Procedure performed:: Replacement pain pump battery Surgeon:: Mani Christine MD MANAGER NUCLEAR:: Vishal Villarreal Anesthesia: MAC Estimated blood loss (mL): 5 Clinical Note:: This patient is a pleasant 56-year-old white male who has an intrathecal morphine pain pump in place. He is currently going at 0.63 mg/day of intrathecal morphine. His pain pump battery is nearing end-of-life. We will replace his intrathecal pain pump battery today. Operative findings:: None Operative note:: Informed consent was obtained the risk and benefits of the procedure were explained the patient. Patient was taken the operating room patient was placed prone on the procedure table. He was prepped and draped in sterile fashion. The skin and subcutaneous tissues overlying the pump were anesthetized using lidocaine. I made an incision and dissected out the pump. When removing the catheter from the existing pump we did damage the catheter somewhat. We cut off a piece of catheter and spliced it onto a new connector. We connected this to the new pump. We did refill his pump with 20 mL of intrathecal morphine 7 mg/mL. We then attached the catheter to the pump. We were able to withdraw clear CSF through the side-port. Pump was placed back in the pocket. The pocket was irrigated with antibiotic solution. The incision was then closed wi th 2-0 Vicryl and ligia. Patient tolerated the procedure well with no complications. Pump was interrogated and started at 0.63 mg/day. Condition: stable Disposition: PACU Complications:: None
== END 2022-08-02 10:40 | disposition home or self-care (01) ==
PROVIDERS: PCP Internal Medicine; Visit Provider Anesthesiology
PROC: (CPT 62362; principal; 2022-08-02 08:30)
DX: M51.16 Intervertebral disc disorders with radiculopathy, lumbar region (principal); Z79.899 Other long term (current) drug therapy; T85.615A Breakdown (mechanical) of other nervous system device, implant or graft, initial encounter; Z45.42 Encounter for adjustment and management of neurostimulator; E11.9 Type 2 diabetes mellitus without complications
CPT/HCPCS: 62362; 62350; 82962; 96374; C1755; C1772; J3370

== ENCOUNTER 2022-08-07 11:36 | Emergency (ER) | payer OTHER, SELFPAY ==
--- NOTE | 2022-08-07 12:49 | EXP.UTC ---
Discharge Plan Disposition Patient Disposition: Home, Self-Care Condition: Good Prescriptions Prescriptions: New benzonatate [benzonatate] 100 mg capsule 100 mg PO TIDP PRN (Reason: Cough) Qty: 30 0RF oseltamivir [Tamiflu] 75 mg capsule 75 mg PO BID Qty: 10 0RF ondansetron 4 mg Tablet,Disintegrating 4 mg PO Q8H PRN (Reason: Nausea) Qty: 20 0RF No Action metformin 500 MG tablet 500 mg PO BID atorvastatin 80 MG tablet 80 mg PO DAILY omeprazole 40 MG capsule,delayed release(DR/EC) 40 mg PO DAILY lisinopril 10 MG tablet 10 mg PO DAILY fenofibrate 160 MG tablet 160 mg PO DAILY sulfamethoxazole-trimethoprim [Bactrim DS] 800-160 mg tablet 1 tab PO BID Qty: 10 0RF sulfamethoxazole-trimethoprim [Bactrim DS] 800-160 mg tablet 1 tab PO BID Qty: 14 0RF hydrocodone-acetaminophen 7.5-325 mg tablet 1 tab PO TID Qty: 15 0RF Referrals Follow up/Referrals: Roman Keyes [Primary Care Provider] - See instructions Activity Restrictions/Add. Instructions Additional Instructions/Restrictions: Drink plenty of fluids. Take tylenol or ibuprofen for pain or fever. Take the medications as directed. Follow up with your regular doctor. GO TO THE ER FOR ANY WORSENING SYMPTOMS Clinical Impressions Clinical Impression: Influenza Instructions Patient Instructions: Influenza, Oseltamivir Discharge ED Provider: Stefan Pineda [facility] HPI General Stated complaint: fever, diarrhea, nausea, vomiting, chills Time Seen by Provider: 08/07/22 12:49 History of Present Illness Provider Complaint: He states that since yesterday he has felt bad. He has had fever, chills, body ache and a dry cough. His tested positive for influenza B this morning. Related Data Home Medications Medication Instructions Recorded Confirmed atorvastatin 80 mg tablet 80 mg PO DAILY Cholesterol 05/13/18 08/02/22 fenofibrate 160 mg tablet 160 mg PO DAILY Cholesterol 05/13/18 08/02/22 lisinopril 10 mg tablet 10 mg PO DAILY blood pressure 05/13/18 08/02/22 metformin 500 mg tablet 500 mg PO BID Diabetes 05/13/18 08/02/22 omeprazole 40 mg capsule,delayed 40 mg PO DAILY GERD 05/13/18 08/02/22 release Previous Rx's Medication Instructions Recorded sulfamethoxazole 800 1 tab PO BID #10 tabs 08/02/22 mg-trimethoprim 160 mg tablet (Bactrim DS) benzonatate 100 mg capsule 100 mg PO TIDP PRN Cough #30 caps 08/07/22 hydrocodone 7.5 mg-acetaminophen 1 tab PO TID #15 tabs 08/07/22 325 mg tablet ondansetron 4 mg disintegrating 4 mg PO Q8H PRN Nausea #20 tabs 08/07/22 tablet oseltamivir 75 mg capsule (Tamiflu) 75 mg PO BID #10 caps 08/07/22 sulfamethoxazole 800 1 tab PO BID #14 tabs 08/07/22 mg-trimethoprim 160 mg tablet (Bactrim DS) Allergies Allergy/AdvReac Type Severity Reaction Status Date / Time latex Allergy Intermediate swelling/it Verified 07/02/22 11:04 [facility] Disclaimer: The information contained in this section may have been updated after the patient was seen, as this information can be updated by other users. Medical History Diabetes History of gastroesophageal reflux (GERD) History of lipoma Hyperlipidemia Hypertension Surgical History History of knee replacement History of neck surgery Family History Other Family history of cancer Family history of diabetes mellitus (DM) Family history of heart disease No significant family history Social History Smoking Status: Never smoker second hand exposure: No alcohol intake: never substance use type: denies use current occupational status: employed Travel in the last 8 weeks: None household members: spouse housing: house current occupation: [employer] current occupa
[2022-08-07 13:03] VITALS: BP 106/67; PULSE 95; RESP 16; TEMP 37.1; O2SAT 96; BMI 32.5
[2022-08-07 13:31] VITALS: BP 106/67; PULSE 95; RESP 16; TEMP 37.1
== END 2022-08-07 13:32 | disposition home or self-care (01) ==
PROVIDERS: Emergency Provider Nurse Practitioner Family; PCP Internal Medicine
DX: R50.9 Fever, unspecified (principal); R19.7 Diarrhea, unspecified; R11.2 Nausea with vomiting, unspecified
CPT/HCPCS: 87275; 87276; 99212; G0463

== ENCOUNTER → 2022-08-12 12:59 | Outpatient (POV) | payer OTHER, SELFPAY ==
[2022-08-12 13:16] VITALS: BP 134/86; PULSE 90; RESP 18; O2SAT 98; BMI 30.4
--- NOTE | 2022-08-12 15:06 | EXP.PAIN.SOA ---
[facility] Pain Management SOAP Note Subjective:: Patient is a pleasant 56 yo male who presents today for follow up. Patient is currently being treated for DDD lumbar, lumbar radic. He is currently being managed with intrathecal pain pump morphine 7mg/mL at a rate of 0.6297mg/day. This was providing significant relief. His pump was at end-of-life. He recently had a generator changed about 10 days ago. Since the change, patient has been feeling ill. His pain has not been controlled as well. About the same time as his surgery, he also developed a viral infection. This might be contributing to his pain. Dr. Christine did start the patient on [place] 7.5mg TID. He said that the [place] is helping his pain. He is out of this today. Per the surgery note, Dr. Christine had to splice the catheter onto a new connector. Possibly, this is causing some kink. Rates his pain as 5/10. Review of Systems: General: No recent weight changes, no fever, no sleep disturbances Respiratory: No cough, no shortness of air, no recurring pulmonary infections Cardiovascular/peripheral vascular: No chest pain, no palpitations, no edema, no shortness of breath Gastrointestinal: No new onset incontinence, normal bowel movements reported Genitourinary: No new onset incontinence Musculoskeletal: Low back pain Psychiatric: [Normal mood/affect] Neurological: [Denies weakness in extremities], [denies balance issues] Objective:: Physical Exam: General: Alert and oriented x3, no acute distress, pleasant and cooperative Lungs: Respirations even and unlabored, symmetrical chest expansion Eyes: PERRL Musculoskeletal: Flexion and extension of lumbar [spine] somewhat guarded secondary to pain, [antalgic gait noted] Skin: Surgical incisions are healing well and well approximated. There is no drainage, erythema, and swelling. Neurological: Speech clear, no gross sensory deficit Assessment:: Degenerative disc disease of lumbar spine with lumbar radiculopathy symptoms Plan:: Patient presents today with worsening pain after replacing the pump battery on 08/02/22. Patient does not think the pump is working well. I have discussed this patient with Dr. Christine. He is recommending to continue [place] 7/5mg TID. He is also wanting to schedule the patient for a catheter revision. Again, pump was working significantly well prior to his battery replacement. Surgical incision is healing well and well approximated. There is no erythema, swelling, or drainage. We will schedule the patient for a follow up next week for staple removal. Patient has been instructed to contact the clinic with any concerns before the next appointment. Dr. Christine has reviewed this note and agrees with this plan of care. This note was dictated using voice recognition software and make contain errors or omissions. [facility] Disclaimer: The information contained in this section may have been updated after the patient was seen, as this information can be updated by other users. Medical History Diabetes History of gastroesophageal reflux (GERD) History of lipoma Hyperlipidemia Hypertension Surgical History History of knee replacement History of neck surgery Family History Other Family history of cancer Family history of diabetes mellitus (DM) Family history of heart disease No significant family history Social History Smoking Status: Never smoker second hand exposure: No alcohol intake: never substance use type: denies use current occupational status: employed Travel in the last 8 weeks: None household members: spouse housing: house current occupation: [employer] current occupational exposures/hazards: No caffeine: Yes
== END | disposition home or self-care (01) ==
PROVIDERS: PCP Internal Medicine; Visit Provider Student in an Organized Health Care Education/Training Program
DX: M51.16 Intervertebral disc disorders with radiculopathy, lumbar region (principal)
CPT/HCPCS: 99212; G0463

== ENCOUNTER → 2022-08-20 12:52 | Outpatient (POV) | payer OTHER, SELFPAY ==
[2022-08-20 14:15] VITALS: BP 127/68; PULSE 84; RESP 18; O2SAT 97; BMI 32.5
--- NOTE | 2022-08-20 14:53 | EXP.PAIN.SOA ---
[facility] Pain Management SOAP Note Subjective:: Patient is a pleasant 57-year-old male who presents today for follow-up. We are currently treating the patient for degenerative disc disease of lumbar spine multilevels with lumbar radiculopathy symptoms, end-of-life intrathecal pain pump battery. Today the patient rates his pain a 4 out of 10. Patient recently had his intrathecal pain pump battery changed on 07/02/2020 7:22 years with his previous pump. Patient states he has had some issues with this new pump and is scheduled for a dye study next Friday to verify that his catheter is working. Patient states he is continuing to do his restrictions with his minimal bending, lifting, twisting and continue to wear his abdominal binder. Patient is currently managed with morphine 7 mg/mL with a daily dose of 0.6297 mg/day. Patient has recently been giving an oral medication of [place] 7.5 mg 3 times a day due to his nonfunctioning pump. Patient denies any side effects from this oral medication. He states this medication does help with his pain symptoms. Patient states he does not need any additional refills at this time. His Serge is [phone]. Its been reviewed and appropriate. Review of Systems: General: No recent weight changes, no fever, no sleep disturbances Respiratory: No cough, no shortness of air, no recurring pulmonary infections Cardiovascular/peripheral vascular: No chest pain, no palpitations, no edema, no shortness of breath Gastrointestinal: No new onset incontinence, normal bowel movements reported Genitourinary: No new onset incontinence Musculoskeletal: Low back pain Psychiatric: [Normal mood/affect] Neurological: [Denies weakness in extremities], [denies balance issues] Objective:: Physical Exam: General: Alert and oriented x3, no acute distress, pleasant and cooperative Lungs: Respirations even and unlabored, symmetrical chest expansion Eyes: PERRL Musculoskeletal: Flexion and extension of lumbar [spine] somewhat guarded secondary to pain, [antalgic gait noted] Neurological: Speech clear, no gross sensory deficit Skin: Incision site clean, dry, well approximated with mild erythema noted, ligia intact Assessment:: Degenerative disc disease of lumbar spine multilevels with lumbar radiculopathy symptoms, end-of-life intrathecal pain pump battery Plan:: Patient continues to experience significant pain in his low back however he is doing well with his current oral medications. Patient is scheduled for a catheter dye study next August 30. Patient's incision site is clean, dry, well approximated with mild erythema noted on the outer borders. Patient ligia were removed during today's visit and skin glue and Steri-Strips applied. I have counseled the patient to continue his surgical restrictions of minimal bending, lifting, twisting and no submerging in water. I have also counseled the patient that he can take off his abdominal binder to wash however he is to continue to use this for the full 6 weeks. Patient will return to clinic in 1 month for reevaluation of symptoms and follow-up. Patient has been instructed to contact the clinic with any concerns before the next appointment. Dr. Christine has reviewed this note and agrees with this plan of care. This note was dictated using voice recognition software and make contain errors or omissions. -- It Is medically necessary for this patient to continue to have their intrathecal pump refilled at regular intervals. This patient had an intrathecal pain pump implanted after meeting criteria of chronic intractable pain for greater than 3 months and failing conservative treatments. Patient has committed and been compliant to the treatment plan and all planned follow up care. Since implantation of the intrathecal pain pump, the patient has had decreased pain and been more functional. Oral medications have been reduced including intake of oral opioids. Patient continues to do well with intrathecal therapy w
== END ==
PROVIDERS: PCP Internal Medicine; Visit Provider Nurse Practitioner Family
DX: M51.16 Intervertebral disc disorders with radiculopathy, lumbar region (principal); T85.615A Breakdown (mechanical) of other nervous system device, implant or graft, initial encounter; Z79.899 Other long term (current) drug therapy
CPT/HCPCS: 99212; 99213; G0463

== ENCOUNTER 2022-08-30 11:24 | Day surgery (SDC) | payer OTHER, SELFPAY ==
[2022-08-30 11:50] VITALS: BP 127/70; PULSE 87; RESP 18; TEMP 37.1; O2SAT 96; BMI 33.1
[2022-08-30 13:02] VITALS: RESP 18; O2SAT 98
[2022-08-30 13:03] VITALS: BP 161/91; PULSE 85; RESP 18; O2SAT 98
[2022-08-30 13:15] VITALS: BP 156/71; PULSE 86; RESP 18; O2SAT 96
--- NOTE | 2022-08-30 13:32 | P.PCN_ITS ---
Procedure Date: 08/30/22 Time: 13:32 Anesthesiologist:: Mani Christine MD Complications:: None Pre-procedure Diagnosis:: Degenerative disc disease of lumbar spine with lumbar radiculopathy symptoms Post-procedure Diagnosis:: Same Indications for Procedure:: This patient is a pleasant 57-year-old white male who we are seeing for her intrathecal catheter dye study. Patient had replacement of his pain pump battery. At that time there was some suspicion of disruption of the intrathecal catheter. We did splice his catheter and put it back together. Patient is having some increasing pain and initially had some withdrawal symptoms. We will do an intrathecal catheter dye study to assess patency of his intrathecal catheter and proper placement. Procedure Details:: Informed consent was obtained risk and benefits of the procedure were explained the patient. Patient was taken the procedure room. The area over the pump was prepped using ChloraPrep. We accessed the side-port of the pump. We were unable to withdraw any CSF or medication through the side-port. It was suspected that the catheter was kinked or disrupted. It was decided not to push any medication through the catheter. The pump was continued at his current dose. We will plan on revision/replacement of his intrathecal catheter in the next month. Patient tolerated procedure well with no complications. Plan and Disposition:: We will plan on revision/replacement of this intrathecal catheter in September when the patient can get off work. In the meantime we will increase him to [place] 7.5 mg 1 tablet 4 times a day. This is to give him adequate pain relief until he is able to come off work. In the meantime we will also continue his intrathecal pump as this with a daily dose of 0.63 mg/day of intrathecal morphin e.
== END 2022-08-30 13:15 | disposition home or self-care (01) ==
PROVIDERS: PCP Internal Medicine; Visit Provider Anesthesiology
DX: M51.16 Intervertebral disc disorders with radiculopathy, lumbar region (principal)
CPT/HCPCS: 61070; 75809

== ENCOUNTER → 2022-10-28 13:52 | Outpatient (POV) | payer OTHER, SELFPAY ==
--- NOTE | 2022-10-28 14:19 | EXP.PAIN.SOA ---
[place] Pain Management SOAP Note Subjective:: Patient is a pleasant 57-year-old male who presents today for follow-up and medication refill. We are currently treating the patient for degenerative disc disease of lumbar spine with lumbar radiculopathy symptoms, intrathecal pain pump nonfunctioning catheter. Today he rates his pain a 4 out of 10. Patient denies any new trauma or injury. Patient denies any change location or type of pain he experiences. Patient did have his intrathecal pump battery changed the end of last year however he did start having withdrawal symptoms. Patient's catheter was checked with a catheter dye study and found to be nonfunctioning. Patient was previously discussed with to replace this catheter however at this time he would still like to wait. His current pump settings are morphine 7 mg/mL with a daily dose of 0.6297 mg/day however it is set on low flow. Patient states he did have hip surgery last year and is doing well with the current medication regimen. Patient is currently prescribed [place] 7.5 mg 4 times a day. Patient denies any side effects from this medication. He is requesting a refill at today's visit. His Serge is [id number]. Its been reviewed and appropriate. Review of Systems: General: No recent weight changes, no fever, no sleep disturbances Respiratory: No cough, no shortness of air, no recurring pulmonary infections Cardiovascular/peripheral vascular: No chest pain, no palpitations, no edema, no shortness of breath Gastrointestinal: No new onset incontinence, normal bowel movements reported Genitourinary: No new onset incontinence Musculoskeletal: Low back pain Psychiatric: [Normal mood/affect] Neurological: [Denies weakness in extremities], [denies balance issues] Objective:: Physical Exam: General: Alert and oriented x3, no acute distress, pleasant and cooperative Lungs: Respirations even and unlabored, symmetrical chest expansion Eyes: PERRL Musculoskeletal: Flexion and extension of lumbar [spine] somewhat guarded secondary to pain, [antalgic gait noted] Neurological: Speech clear, no gross sensory deficit ORT score updated with low risk Assessment:: Degenerative disc disease of lumbar spine with lumbar radiculopathy symptoms, nonfunctioning intrathecal catheter Plan:: Patient continues to have significant pain however he is doing well with his current medication regimen. I will refill his [place] 7.5 mg 4 times a day and provide a 1 month supply of this medication. I have counseled the patient that we will plan on changing his intrathecal pump medication to bupivacaine at the next refill date. Patient will return to clinic in 1 month for reevaluation of symptoms, medication refill and follow-up. Patient has been instructed to contact the clinic with any concerns before the next appointment. Dr. Christine has reviewed this note and agrees with this plan of care. This note was dictated using voice recognition software and make contain errors or omissions. -- It Is medically necessary for this patient to continue to have their intrathecal pump refilled at regular intervals. This patient had an intrathecal pain pump implanted after meeting criteria of chronic intractable pain for greater than 3 months and failing conservative treatments. Patient has committed and been compliant to the treatment plan and all planned follow up care. Since implantation of the intrathecal pain pump, the patient has had decreased pain and been more functional. Oral medications have been reduced including intake of oral opioids. Patient continues to do well with intrathecal therapy with decrease in pain symptoms and increase in functional status. Stopping intrathecal medications can lead to life threatening withdrawal, seizures, cardiac arrest, severe pain, and possible . Pumps that are not refilled at regular intervals can be damages and cause and need for replacement. We continually titrate dose and concentration to optimize pain reli
[2022-10-28 15:32] VITALS: BP 155/80; PULSE 93; RESP 18; O2SAT 97; BMI 33.1
== END | disposition home or self-care (01) ==
PROVIDERS: PCP Internal Medicine; Visit Provider Nurse Practitioner Family
DX: T85.695A Other mechanical complication of other nervous system device, implant or graft, initial encounter (principal); M51.16 Intervertebral disc disorders with radiculopathy, lumbar region
CPT/HCPCS: 99212; G0463

== ENCOUNTER → 2022-10-28 14:27 | Outpatient (CLI) | payer OTHER, SELFPAY ==
[2022-10-28 16:12] LABS: Amphetamine/Metha Screen,Urine Negative ng/ml (<1000)
[2022-10-28 16:14] LABS: Barbiturates Screen,Urine Negative ng/ml (<200); Benzodiazepines Screen,Urine Negative ng/ml (<200)
[2022-10-28 16:15] LABS: Cannabinoid Screen,Urine Negative ng/ml (<50); Cocaine Screen,Urine Negative ng/ml (<300)
[2022-10-28 16:16] LABS: Methadone Screen,Urine Negative ng/ml (<300)
[2022-10-28 16:17] LABS: Opiate Screen,Urine Positive ng/ml (<300); Phencyclidine Screen,Urine Negative ng/ml (<25)
[2022-11-03 18:04] LABS: Codeine Negative (Cutoff=100); Hydrocodone Positive (.); Hydromorphone Positive (.); Morphine Negative (Cutoff=100); Opiates Positive (.)
== END ==
LOC: LAB 14:27
PROVIDERS: PCP Internal Medicine; Visit Provider Nurse Practitioner Family
DX: Z79.891 Long term (current) use of opiate analgesic (principal)
CPT/HCPCS: 80305; 80361; 80365; G0480

== ENCOUNTER 2022-11-15 12:57 | Day surgery (SDC) | payer OTHER, SELFPAY ==
[2022-11-15 13:22] VITALS: BP 148/73; PULSE 101; RESP 18; TEMP 36.7; O2SAT 97; BMI 33.7
[2022-11-15 14:27] VITALS: BP 138/80; PULSE 93; RESP 18; O2SAT 98
[2022-11-15 14:28] VITALS: BP 138/80; PULSE 93; RESP 18; O2SAT 98
[2022-11-15 15:00] VITALS: BP 145/79; PULSE 85; RESP 18; TEMP 36.7; O2SAT 97
--- NOTE | 2022-11-15 15:23 | P.PCN_ITS ---
Procedure Date: 11/15/22 Time: 15:23 Anesthesiologist:: Mani Christine MD Complications:: None Pre-procedure Diagnosis:: Degenerative disc disease of lumbar spine with lumbar radiculopathy symptoms Post-procedure Diagnosis:: Same Indications for Procedure:: Patient is a pleasant 57-year-old white male who we are treating for low back pain with lumbar radicular symptoms. It is unsure as to whether his catheter is functional. We are giving him [place] 7.5 mg 4 times a day. We will switch him out from intrathecal morphine to intrathecal bupivacaine today to lessen his risk. Patient does not want to revise his catheter at this time. Serge and drug screen are all appropriate. He does have an antalgic gait. Motor strength of lower extremities is 5/5. There is no gross sensory deficit. Procedure Details:: Informed consent was obtained risk and benefits of the procedure were explained to the patient. Patient was taken the procedure room. Patient was placed prone on the procedure table. Under fluoroscopic guidance we accessed the pump we withdrew approximately 9 mL of medication. Fill the pump with 20 mils of intrathecal bupivacaine 5 mg per mill. Started the pump at 2.5 mg/day. Patient does have a 4-day bridge bolus. Patient tolerated the procedure well with no complications. Plan and Disposition:: We will follow-up with this patient in 2 weeks. We will make adjustments to his pump at that time.
== END 2022-11-15 15:00 | disposition home or self-care (01) ==
PROVIDERS: PCP Internal Medicine; Visit Provider Anesthesiology
DX: Z45.1 Encounter for adjustment and management of infusion pump (principal); M51.16 Intervertebral disc disorders with radiculopathy, lumbar region
CPT/HCPCS: 95991

== ENCOUNTER → 2022-11-27 12:43 | Outpatient (POV) | payer OTHER, SELFPAY ==
[2022-11-27 13:08] VITALS: BP 145/83; PULSE 84; RESP 18; O2SAT 98; BMI 33.1
--- NOTE | 2022-11-27 13:11 | EXP.PAIN.SOA ---
[facility] Pain Management SOAP Note Subjective:: Patient is a pleasant 57-year-old male who presents today for medication refill and follow-up. We are currently treating the patient for degenerative disc disease of lumbar spine with lumbar radiculopathy symptoms, nonfunctioning intrathecal pain pump. Today the patient rates his pain a 3 out of 10. Patient denies any new trauma or injury. Patient denies any change location or type of pain he experiences. We did recently change out his intrathecal morphine to bupivacaine. It is currently managed at bupivacaine 5 mg/mL. Patient states he did not notice any additional changes when this medication was switched out. He is currently managed with [place] 7.5 mg 4 times a day. Patient denies any side effects from this medication. He states this medication is helping manage his pain symptoms. He is requesting a refill at today's visit. His Serge is [id number]. Its been reviewed and appropriate. Review of Systems: General: No recent weight changes, no fever, no sleep disturbances Respiratory: No cough, no shortness of air, no recurring pulmonary infections Cardiovascular/peripheral vascular: No chest pain, no palpitations, no edema, no shortness of breath Gastrointestinal: No new onset incontinence, normal bowel movements reported Genitourinary: No new onset incontinence Musculoskeletal: Low back pain Psychiatric: [Normal mood/affect] Neurological: [Denies weakness in extremities], [denies balance issues] Objective:: Physical Exam: General: Alert and oriented x3, no acute distress, pleasant and cooperative Lungs: Respirations even and unlabored, symmetrical chest expansion Eyes: PERRL Musculoskeletal: Flexion and extension of lumbar [spine] somewhat guarded secondary to pain, [antalgic gait noted] Neurological: Speech clear, no gross sensory deficit Assessment:: Degenerative disc disease of lumbar spine with lumbar radiculopathy symptoms, nonfunctioning intrathecal pain pump Plan:: Patient is doing well with his current medication regimen. I will refill his [place] 7.5 mg 4 times a day and provide a 1 month supply of this medication. I have counseled the patient to watch for any additional signs of leg weakness related to his intrathecal pump medication. Patient will return to clinic in 1 month for reevaluation of symptoms, medication refill and follow-up. Patient has been instructed to contact the clinic with any concerns before the next appointment. Dr. Christine has reviewed this note and agrees with this plan of care. This note was dictated using voice recognition software and make contain errors or omissions. -- It Is medically necessary for this patient to continue to have their intrathecal pump refilled at regular intervals. This patient had an intrathecal pain pump implanted after meeting criteria of chronic intractable pain for greater than 3 months and failing conservative treatments. Patient has committed and been compliant to the treatment plan and all planned follow up care. Since implantation of the intrathecal pain pump, the patient has had decreased pain and been more functional. Oral medications have been reduced including intake of oral opioids. Patient continues to do well with intrathecal therapy with decrease in pain symptoms and increase in functional status. Stopping intrathecal medications can lead to life threatening withdrawal, seizures, cardiac arrest, severe pain, and possible . Pumps that are not refilled at regular intervals can be damages and cause and need for replacement. We continually titrate dose and concentration to optimize pain relief and function. We are limited in concentration for certain drugs to safely deliver medications through the pump and stay within the recommendations from the Polyanalgesic Consensus Committee Guidelines. Depending on dose and concentration these pumps may need to be refilled sooner than 3 months as we titrate. [facility] Disclaimer: The informatio
== END | disposition home or self-care (01) ==
PROVIDERS: PCP Internal Medicine; Visit Provider Nurse Practitioner Family
DX: M51.16 Intervertebral disc disorders with radiculopathy, lumbar region (principal); T85.695A Other mechanical complication of other nervous system device, implant or graft, initial encounter
CPT/HCPCS: 99212; G0463

== ENCOUNTER → 2022-12-26 13:06 | Outpatient (POV) | payer OTHER, SELFPAY ==
[2022-12-26 13:17] VITALS: BP 112/76; PULSE 85; RESP 18; O2SAT 98; BMI 34.9
--- NOTE | 2022-12-26 13:20 | EXP.PAIN.SOA ---
[facility] Pain Management SOAP Note Subjective:: Patient is a pleasant 57-year-old male who presents today for medication refill and follow-up. We are currently treating the patient for degenerative disc disease of lumbar spine with lumbar radiculopathy symptoms, nonfunctioning intrathecal pain pump. Today he rates his pain a 4 out of 10. Patient denies any new trauma or injury. Patient denies any change to location or type of pain he experiences. Patient is currently managed with intrathecal bupivacaine 5 mg/mL with a daily dose of 2.503 mg/day. Patient denies any side effects from this medication however we are unsure if he is getting anything out of this pump. He is also managed orally with [place] 7.5 mg 4 times a day. Patient denies any side effects from this medication. His Serge is [id number]. Its been reviewed and appropriate. Review of Systems: General: No recent weight changes, no fever, no sleep disturbances Respiratory: No cough, no shortness of air, no recurring pulmonary infections Cardiovascular/peripheral vascular: No chest pain, no palpitations, no edema, no shortness of breath Gastrointestinal: No new onset incontinence, normal bowel movements reported Genitourinary: No new onset incontinence Musculoskeletal: Low back pain Psychiatric: [Normal mood/affect] Neurological: [Denies weakness in extremities], [denies balance issues] Objective:: Physical Exam: General: Alert and oriented x3, no acute distress, pleasant and cooperative Lungs: Respirations even and unlabored, symmetrical chest expansion Eyes: PERRL Musculoskeletal: Flexion and extension of lumbar [spine] somewhat guarded secondary to pain, [antalgic gait noted] Neurological: Speech clear, no gross sensory deficit Assessment:: Degenerative disc disease of lumbar spine with lumbar radiculopathy symptoms nonfunctioning intrathecal pain pump Plan:: Patient is doing well with his current medication regimen. I will refill his [place] 7.5 mg 4 times a day and provide a 1 month supply of this medication. Patient's pump is at a low reservoir and we will schedule him for a pump refill this coming Friday. Patient will return to clinic in 1 month for reevaluation of his symptoms, medication refill and follow-up. Patient has been instructed to contact the clinic with any concerns before the next appointment. Dr. Christine has reviewed this note and agrees with this plan of care. This note was dictated using voice recognition software and make contain errors or omissions. -- It Is medically necessary for this patient to continue to have their intrathecal pump refilled at regular intervals. This patient had an intrathecal pain pump implanted after meeting criteria of chronic intractable pain for greater than 3 months and failing conservative treatments. Patient has committed and been compliant to the treatment plan and all planned follow up care. Since implantation of the intrathecal pain pump, the patient has had decreased pain and been more functional. Oral medications have been reduced including intake of oral opioids. Patient continues to do well with intrathecal therapy with decrease in pain symptoms and increase in functional status. Stopping intrathecal medications can lead to life threatening withdrawal, seizures, cardiac arrest, severe pain, and possible . Pumps that are not refilled at regular intervals can be damages and cause and need for replacement. We continually titrate dose and concentration to optimize pain relief and function. We are limited in concentration for certain drugs to safely deliver medications through the pump and stay within the recommendations from the Polyanalgesic Consensus Committee Guidelines. Depending on dose and concentration these pumps may need to be refilled sooner than 3 months as we titrate. [facility] Disclaimer: The information contained in this section may have been updated after the patient was seen, as this information can be updated by other us
[2022-12-26 14:10] LABS: Amphetamine/Metha Screen,Urine Negative ng/ml (<1000)
[2022-12-26 14:11] LABS: Barbiturates Screen,Urine Negative ng/ml (<200)
[2022-12-26 14:12] LABS: Benzodiazepines Screen,Urine Negative ng/ml (<200); Cannabinoid Screen,Urine Negative ng/ml (<50)
[2022-12-26 14:15] LABS: Cocaine Screen,Urine Negative ng/ml (<300)
[2022-12-26 14:16] LABS: Methadone Screen,Urine Negative ng/ml (<300); Opiate Screen,Urine Positive ng/ml (<300)
[2022-12-26 14:18] LABS: Phencyclidine Screen,Urine Negative ng/ml (<25)
[2023-01-06 09:35] LABS: Codeine Negative (Cutoff=100); Hydrocodone Positive (.); Hydromorphone Positive (.); Morphine Negative (Cutoff=100); Opiates Positive (.)
== END | disposition home or self-care (01) ==
PROVIDERS: PCP Internal Medicine; Visit Provider Nurse Practitioner Family
DX: M51.16 Intervertebral disc disorders with radiculopathy, lumbar region (principal); T85.9XXA Unspecified complication of internal prosthetic device, implant and graft, initial encounter
CPT/HCPCS: 80305; 80361; 80365; 99212; G0463; G0480

== ENCOUNTER 2023-01-07 11:21 | Day surgery (SDC) | payer OTHER, SELFPAY ==
[2023-01-07 11:34] VITALS: BP 152/82; PULSE 103; RESP 18; TEMP 36.3; O2SAT 95; BMI 32.5
[2023-01-07 11:47] VITALS: BP 135/78; PULSE 96; RESP 18; O2SAT 97
[2023-01-07 11:48] VITALS: BP 135/78; PULSE 96; RESP 20; O2SAT 97
--- NOTE | 2023-01-07 12:16 | EXP.PAIN.PRO ---
Procedure Date: 01/07/23 Time: 11:50 Anesthesiologist:: Shakeel Luz CRNA Complications:: None Pre-procedure Diagnosis:: Degenerative disc lumbar spine multilevels. Lumbar radiculopathy. Post-procedure Diagnosis:: Same. Indications for Procedure:: Patient is a pleasant 57-year-old male that comes our clinic today for intrathecal pain pump interrogation and refill. Patient is currently being managed with bupivacaine 5 mg/mL at 2.5 mg/day. Patient has been doing very well for several years with his intrathecal pain pump. However, patient describes today having a recent onset of ringing in his ears, numbness around his lips, funny taste in his mouth. I discussed in detail with the patient regarding turning the pump down to 2 mg/day. We will see if his symptoms do subside. Return to see us in 1 week for follow-up. Also, today I surveyed the pump and tubing under live x-ray. Everything appears to be intact. Procedure Details:: Details of the procedure were explained to the patient. The patient taken the procedure room placed in the sitting position. The area of the pump was cleansed using chlorhexidine as a cleansing solution. The pump was interrogated. The pump was accessed with ease using a 22-gauge inch and half needle. 0.25 mL of solution was withdrawn. Discarded appropriately. The pump was then filled with 20 cc of bupivacaine 5 mg/mL. The pump rate will be reduced to 2 mg/day. Patient will follow-up within 1 week. Plan and Disposition:: Patient was discharged without incident.
[2023-01-07 12:25] VITALS: BP 101/60; PULSE 89; RESP 18; O2SAT 95
== END 2023-01-07 12:25 | disposition home or self-care (01) ==
PROVIDERS: PCP Internal Medicine; Visit Provider Nurse Anesthetist, Certified Registered
DX: Z45.1 Encounter for adjustment and management of infusion pump (principal); M51.16 Intervertebral disc disorders with radiculopathy, lumbar region
CPT/HCPCS: 62370

== ENCOUNTER → 2023-01-14 11:43 | Outpatient (POV) | payer OTHER, SELFPAY ==
[2023-01-14 11:52] VITALS: BP 133/82; PULSE 87; RESP 18; TEMP 36.7; O2SAT 96; BMI 31.8
--- NOTE | 2023-01-14 12:11 | EXP.PAIN.SOA ---
[facility] Pain Management SOAP Note Subjective:: This patient is a pleasant 57-year-old male that comes our clinic today for follow-up visit. Patient is currently being managed with intrathecal bupivacaine 5 mg/mL. 2 weeks ago the patient presented for intrathecal pain pump interrogation and refill. His rate at that time was 2.5 mg/day. However, patient was complaining at that visit regarding ringing in the ears, numbness around the lips, funny taste in the mouth, nausea and vomiting. The pump was turned down to 2.0 mg/day at that time. Today, patient's only complaint is nausea. He denies any other side effect or symptom. His pump will remain at 2 mg/day. He is not complaining of any excess pain. Objective:: Patient is awake alert [place] x3. In no acute distress. Flexion-extension lumbar spine normal. Deep tendon reflexes upper and lower extremities normal. Motor strength upper and lower extremities normal. There is no gross sensory deficit. Gait is normal. Assessment:: Degenerative disc lumbar spine multilevels. Lumbar radiculopathy Plan:: We will call in Ondansetron 4 mg Q6 8 hours as needed nausea vomiting. Patient was discharged without incident. [facility] Disclaimer: The information contained in this section may have been updated after the patient was seen, as this information can be updated by other users. Medical History Diabetes History of gastroesophageal reflux (GERD) History of lipoma Hyperlipidemia Hypertension Surgical History History of knee replacement History of neck surgery Family History Other Family history of cancer Family history of diabetes mellitus (DM) Family history of heart disease No significant family history Social History Smoking Status: Never smoker second hand exposure: No alcohol intake: never substance use type: denies use current occupational status: other Travel in the last 8 weeks: None household members: spouse housing: house current occupation: [employer] current occupational exposures/hazards: No caffeine: Yes
== END ==
PROVIDERS: PCP Internal Medicine; Visit Provider Nurse Anesthetist, Certified Registered
DX: M51.16 Intervertebral disc disorders with radiculopathy, lumbar region (principal)
CPT/HCPCS: 99212; G0463

== ENCOUNTER → 2023-01-27 10:01 | Outpatient (POV) | payer OTHER, SELFPAY ==
--- NOTE | 2023-01-27 10:31 | EXP.PAIN.PRO ---
Procedure Date: 01/27/23 Time: 10:11 Anesthesiologist:: Amy Nguyen APRN Complications:: None Pre-procedure Diagnosis:: Degenerative disc disease of lumbar spine multilevels with lumbar radiculopathy symptoms Post-procedure Diagnosis:: Same Indications for Procedure:: Patient is a pleasant 57-year-old male who presents today for intrathecal reprogramming adjustment. We are currently treating the patient for degenerative disc disease of lumbar spine multilevels with lumbar radiculopathy symptoms. Today he rates his pain a 4 out of 10. On his last appointment his pump had ran dry and he was experiencing symptoms of ringing in his ears, numbness around his mouth and GI issues. Patient does state that the ringing in his ears and the numbness around his mouth has fully resolved however he is still experiencing some GI issues. He does state that he has a history of ulcers and may be completely unrelated to his pump medication. He is scheduled to see his PCP next week. Patient states it has been years since he has had a EGD or colonoscopy. Patient is currently managed with intrathecal bupivacaine 5 mg/mL with a daily dose of 2.0014 mg/day. Patient denies any side effects from this medication. He is also managed with [place] 7.5 mg 4 times a day. Patient denies any side effects from this medication. He is requesting a refill at today's visit. His Serge is [id number]. Has been reviewed and appropriate. Physical Exam: General: Alert and oriented x3, no acute distress, pleasant and cooperative Lungs: Respirations even and unlabored, symmetrical chest expansion Eyes: PERRL Musculoskeletal: Flexion and extension of lumbar [spine] somewhat guarded secondary to pain, [antalgic gait noted] Neurological: Speech clear, no gross sensory deficit Procedure Details:: Informed consent was obtained and the risk and benefits of the procedure were explained to the patient. Patient was taken to the procedure room where noninvasive monitoring was placed including noninvasive blood pressure cuff and pulse oximeter. Patient's pump was interrogated and was reprogrammed to bupivacaine 2.1993 mg/day. The patient tolerated the procedure well with no complications. Plan and Disposition:: Patient has enough of his antinausea medicine and does not need any additional refills. I have counseled the patient that it may be beneficial for him to schedule a EGD and colonoscopy. We will see the patient back in the clinic at the next intrathecal refill. Patient has been instructed to contact the clinic with any concerns before the next appointment. Dr. Christine has reviewed this note and agrees with this plan of care. This note was dictated using voice recognition software and make contain errors or omissions. -- It Is medically necessary for this patient to continue to have their intrathecal pump refilled at regular intervals. This patient had an intrathecal pain pump implanted after meeting criteria of chronic intractable pain for greater than 3 months and failing conservative treatments. Patient has committed and been compliant to the treatment plan and all planned follow up care. Since implantation of the intrathecal pain pump, the patient has had decreased pain and been more functional. Oral medications have been reduced including intake of oral opioids. Patient continues to do well with intrathecal therapy with decrease in pain symptoms and increase in functional status. Stopping intrathecal medications can lead to life threatening withdrawal, seizures, cardiac arrest, severe pain, and possible . Pumps that are not refilled at regular intervals can be damages and cause and need for replacement. We continually titrate dose and concentration to optimize pain relief and function. We are limited in concentration for certain drugs to safely deliver medications through the pump and stay within the recommendations from the Polyanalgesic Consensus Committee Guidelines. Depending on dose
[2023-01-27 12:18] VITALS: BP 137/67; PULSE 84; RESP 18; O2SAT 97; BMI 31.6
== END | disposition home or self-care (01) ==
PROVIDERS: PCP Internal Medicine; Visit Provider Nurse Practitioner Family
DX: Z45.1 Encounter for adjustment and management of infusion pump (principal); M51.16 Intervertebral disc disorders with radiculopathy, lumbar region
CPT/HCPCS: 62368; 99213; G0463

== ENCOUNTER 2023-02-04 11:31 | Day surgery (SDC) | payer OTHER, SELFPAY ==
[2023-02-04 11:33] VITALS: BP 129/75; PULSE 78; RESP 18; TEMP 37.1; O2SAT 95; BMI 32.5
[2023-02-04 11:52] VITALS: BP 149/79; PULSE 83; RESP 18; O2SAT 97
--- NOTE | 2023-02-04 11:57 | EXP.PAIN.PRO ---
Procedure Date: 02/04/23 Time: 11:50 Anesthesiologist:: Shakeel Luz CRNA Complications:: None Pre-procedure Diagnosis:: Degenerative disc lumbar spine multilevels. Lumbar radiculopathy Post-procedure Diagnosis:: Same. Indications for Procedure:: Patient is a very pleasant 57-year-old male that comes our clinic today for intrathecal pain pump interrogation refill. Patient currently being managed with bupivacaine 5 mg/mL at 2.0 mg/day. We will increase his concentration today to 10 mg/mL. His rate will stay the same. Procedure Details:: Details of the procedure explained to the patient. The patient taken the procedure room placed in the sitting position. The area over the pump was cleansed using chlorhexidine as a cleansing solution. The pump was interrogated. The pump was accessed with ease using a 22-gauge inch and half needle. 7.5 mL of solution was withdrawn and discarded appropriately. The pump was then filled incrementally with 20 cc of bupivacaine 10 mg/mL. The rate will continue at 2.0 mg/day. Plan and Disposition:: Patient was discharged without incident.
[2023-02-04 12:03] VITALS: BP 138/70; PULSE 84; RESP 18; O2SAT 95
== END 2023-02-04 12:03 | disposition home or self-care (01) ==
PROVIDERS: PCP Internal Medicine; Visit Provider Nurse Anesthetist, Certified Registered
DX: M51.16 Intervertebral disc disorders with radiculopathy, lumbar region (principal)
CPT/HCPCS: 95991

== ENCOUNTER → 2023-02-26 10:09 | Outpatient (POV) | payer OTHER, SELFPAY ==
--- NOTE | 2023-02-26 10:23 | EXP.PAIN.SOA ---
[facility] Pain Management SOAP Note Subjective:: Patient is a pleasant 57-year-old male who presents today for medication refill and follow-up. We are currently treating the patient for degenerative disc disease of cervical and lumbar spine with cervical and lumbar radiculopathy symptoms. Today he rates his pain a 3 out of 10. Patient denies any new trauma or injury. He does state that from our last visit he is having a little bit more neck pain however it is still manageable at this point. Patient is currently managed with intrathecal bupivacaine 10 mg/mL with a daily dose of 2.199 mg/day. Patient denies any side effects from this medication. He does state that he still is unsure whether or not to what extent he is getting this medication. He states certain days he will feel like he notices better improvement over others. Patient is also managed with [place] 7.5 mg 4 times a day and Zofran 4 mg as needed. Patient denies any side effects from these medications. He is requesting refills at today's visit. His Serge is [id number]. Its been reviewed and appropriate. Review of Systems: General: No recent weight changes, no fever, no sleep disturbances Respiratory: No cough, no shortness of air, no recurring pulmonary infections Cardiovascular/peripheral vascular: No chest pain, no palpitations, no edema, no shortness of breath Gastrointestinal: No new onset incontinence, normal bowel movements reported Genitourinary: No new onset incontinence Musculoskeletal: Low back pain, neck pain Psychiatric: [Normal mood/affect] Neurological: [Denies weakness in extremities], [denies balance issues] Objective:: Physical Exam: General: Alert and oriented x3, no acute distress, pleasant and cooperative Lungs: Respirations even and unlabored, symmetrical chest expansion Eyes: PERRL Musculoskeletal: Flexion and extension of lumbar [spine] somewhat guarded secondary to pain, [antalgic gait noted] Neurological: Speech clear, no gross sensory deficit Assessment:: Degenerative disc disease of cervical and lumbar spine with cervical and lumbar radiculopathy symptoms Plan:: I will refill the patient's [place] 7.5 mg 4 times a day and Zofran 4 mg 3 times daily as needed and provide a 1 month supply of these medications. I have counseled the patient that in the future if his neck pain continues to be an issue that we can do possible cervical epidurals. We will discuss this at future visits. Patient will return to clinic in 1 month for reevaluation of symptoms and medication refill. Patient has been advised of risks of oversedation with the prescribed medication. Narcan has been offered to the patient in the event of oversedation. Patient has been advised that a family member should also be educated regarding administration of Narcan. Patient has been instructed to contact the clinic with any concerns before the next appointment. Dr. Christine has reviewed this note and agrees with this plan of care. This note was dictated using voice recognition software and make contain errors or omissions. [facility] Disclaimer: The information contained in this section may have been updated after the patient was seen, as this information can be updated by other users. Medical History Diabetes History of gastroesophageal reflux (GERD) History of lipoma Hyperlipidemia Hypertension Surgical History History of knee replacement History of neck surgery Family History Other Family history of cancer Family history of diabetes mellitus (DM) Family history of heart disease No significant family history Social History Smoking Status: Never smoker second hand exposure: No alcohol intake: never substance use type: denies use current occupational status: employed [employer]
[2023-02-26 10:41] VITALS: BP 134/83; PULSE 80; RESP 18; O2SAT 98; BMI 32.5
== END | disposition home or self-care (01) ==
PROVIDERS: PCP Internal Medicine; Visit Provider Nurse Practitioner Family
DX: M50.10 Cervical disc disorder with radiculopathy, unspecified cervical region (principal); M51.16 Intervertebral disc disorders with radiculopathy, lumbar region
CPT/HCPCS: 99212; G0463

== ENCOUNTER 2023-04-08 12:03 | Day surgery (SDC) | payer OTHER, SELFPAY ==
[2023-04-08 12:43] VITALS: BP 145/67; PULSE 83; RESP 18; O2SAT 95
[2023-04-08 12:45] VITALS: BP 152/79; PULSE 85; RESP 16; TEMP 37.2; O2SAT 94; BMI 32.5
[2023-04-08 12:48] VITALS: BP 145/67; PULSE 83; RESP 18; O2SAT 95
--- NOTE | 2023-04-08 12:52 | P.PCN_ITS ---
Procedure Date: 04/08/23 Time: 12:40 Anesthesiologist:: Shakeel Luz CRNA Complications:: None Pre-procedure Diagnosis:: Denerative disc disease lumbar spine multilevels. Lumbar radiculopathy. Post-procedure Diagnosis:: Same. Indications for Procedure:: Patient is a very pleasant 57-year-old male that comes our clinic today for intrathecal pain pump interrogation refill. Patient currently being managed with bupivacaine 10 mg/mL at 2.2 mg/day. Patient also continuing with oral narcotics [place] 7.5 mg 1 p.o. 4 times daily. Patient states the combination of medication is helping his low back pain as well as bilateral hip and leg radicular symptoms. However, patient is requesting increase in the pump today. This is due to increased low back pain with activity. Procedure Details:: Details of the procedure explained to the patient. The patient taken to procedure room placed in sitting position. The area over the pump was cleansed using chlorhexidine solution solution. The pump was interrogated. The pump was accessed with ease using a 22-gauge inch and half needle. 6 mL of solution was withdrawn and discarded appropriately. The pump was then filled with 20 cc of bupivacaine 10 mg/mL. Pump will be increased by 10%. Patient's new rate will be 2.42 mg/day. Patient tolerated procedure without difficulty. There were no complications. Plan and Disposition:: Patient was discharged without incident.
[2023-04-08 12:58] VITALS: BP 144/75; PULSE 80; RESP 18; O2SAT 94
[2023-04-08 14:06] LABS: Amphetamine/Metha Screen,Urine Negative ng/ml (<1000)
[2023-04-08 14:07] LABS: Barbiturates Screen,Urine Negative ng/ml (<200)
[2023-04-08 14:08] LABS: Benzodiazepines Screen,Urine Negative ng/ml (<200)
[2023-04-08 14:58] LABS: Phencyclidine Screen,Urine Negative ng/ml (<25)
[2023-04-08 15:08] LABS: Cannabinoid Screen,Urine Negative ng/ml (<50)
[2023-04-08 15:09] LABS: Cocaine Screen,Urine Negative ng/ml (<300)
[2023-04-08 15:10] LABS: Methadone Screen,Urine Negative ng/ml (<300); Opiate Screen,Urine Positive ng/ml (<300)
[2023-04-14 18:36] LABS: Codeine Negative (Cutoff=100); Hydrocodone Positive (.); Hydromorphone Positive (.); Morphine Negative (Cutoff=100); Opiates Positive (.)
== END 2023-04-08 12:58 | disposition home or self-care (01) ==
PROVIDERS: Anesthesiology; PCP Internal Medicine; Visit Provider Nurse Anesthetist, Certified Registered
DX: M51.16 Intervertebral disc disorders with radiculopathy, lumbar region (principal)
CPT/HCPCS: 36415; 80305; 80361; 80365; 95991; G0480

== ENCOUNTER → 2023-05-09 09:35 | Outpatient (POV) | payer OTHER, SELFPAY ==
--- NOTE | 2023-05-09 09:50 | A.OFFVIS_ITS ---
[facility] Pain Management SOAP Note Subjective:: Patient is a very pleasant 57-year-old male that comes our clinic today for medication refills and follow-up. We currently manage the patient with [place] 7.5 mg 1 p.o. 4 times daily. Also intrathecal pain management with bupivacaine 10 mg/mL at a rate of 2.42 mg/day. Patient doing very well with his oral medication as well as intrathecal pain pump management. His Serge #[id number] has been reviewed and appropriate. Patient does not complain of any side effects or complications with his current medical management. Patient reports some low back pain at times. Bilateral hip and leg radicular symptoms at times. Objective:: Patient is awake alert [place] x3. No acute distress. Flexion-extension lumbar spine somewhat guarded secondary to pain. Deep tendon reflexes upper and lower extremities normal. Motor strength upper and lower extremities normal. There is no gross sensory deficit. Gait is normal. Assessment:: Degenerative disc lumbar spine multilevels. Lumbar radiculopathy. Lumbar postlaminectomy syndrome. Plan:: We will refill patient's [place] 7.5 mg 1 p.o. 4 times daily. Patient will return 1 month. [facility] Disclaimer: The information contained in this section may have been updated after the patient was seen, as this information can be updated by other users. Medical History Diabetes History of gastroesophageal reflux (GERD) History of lipoma Hyperlipidemia Hypertension Surgical History History of knee replacement History of neck surgery Family History Other Family history of cancer Family history of diabetes mellitus (DM) Family history of heart disease No significant family history Social History Smoking Status: Never smoker second hand exposure: No alcohol intake: never substance use type: denies use current occupational status: employed Travel in the last 8 weeks: None household members: spouse housing: house current occupation: [employer] current occupational exposures/hazards: No caffeine: Yes
[2023-05-09 10:12] VITALS: BP 138/70; PULSE 96; RESP 18; O2SAT 94; BMI 33.1
== END | disposition home or self-care (01) ==
PROVIDERS: PCP Internal Medicine; Visit Provider Nurse Anesthetist, Certified Registered
DX: M51.16 Intervertebral disc disorders with radiculopathy, lumbar region (principal); M96.1 Postlaminectomy syndrome, not elsewhere classified; Z97.8 Presence of other specified devices
CPT/HCPCS: 99212; G0463

== ENCOUNTER → 2023-05-29 11:51 | Outpatient (POV) | payer OTHER, SELFPAY ==
--- NOTE | 2023-05-29 11:59 | A.OFFVIS_ITS ---
[facility] Pain Management SOAP Note Subjective:: Patient is a pleasant 57-year-old male who presents today for for 1 month follow-up and medication refill. We are currently treating the patient for degenerative disc disease of lumbar spine with lumbar radiculopathy symptoms, lumbar postlaminectomy syndrome. Today he rates his pain a 4 out of 10. Patient denies any new trauma or injury. He is currently managed with [place] 7.5 mg 4 times a day. Patient denies any side effects from this medication. He does have a intrathecal pain pump with bupivacaine 10 mg/mL with a daily dose of 2.417 mg/day. Patient denies any side effects from this medication. His Serge is [id number]. Its been reviewed and appropriate. Review of Systems: General: No recent weight changes, no fever, no sleep disturbances Respiratory: No cough, no shortness of air, no recurring pulmonary infections Cardiovascular/peripheral vascular: No chest pain, no palpitations, no edema, no shortness of breath Gastrointestinal: No new onset incontinence, normal bowel movements reported Genitourinary: No new onset incontinence Musculoskeletal: Low back pain Psychiatric: [Normal mood/affect] Neurological: [Denies weakness in extremities], [denies balance issues] Objective:: Physical Exam: General: Alert and oriented x3, no acute distress, pleasant and cooperative Lungs: Respirations even and unlabored, symmetrical chest expansion Eyes: PERRL Musculoskeletal: Flexion and extension of lumbar [spine] somewhat guarded secondary to pain, [antalgic gait noted] Neurological: Speech clear, no gross sensory deficit Assessment:: Degenerative disc disease of lumbar spine with lumbar radiculopathy symptoms, lumbar postlaminectomy syndrome Plan:: I will refill the patient's [place] 7.5 mg 4 times a day and provide a 1 month supply of this medication. Patient will return to clinic in 1 month for reevaluation of symptoms and plan of care. \ Patient has been advised of risks of oversedation with the prescribed medica tion. Narcan has been offered to the patient in the event of oversedation. Patient has been advised that a family member should also be educated regarding administration of Narcan. Patient has been instructed to contact the clinic with any concerns before the next appointment. Dr. Christine has reviewed this note and agrees with this plan of care. This note was dictated using voice recognition software and make contain errors or omissions. [facility] Disclaimer: The information contained in this section may have been updated after the patient was seen, as this information can be updated by other users. Medical History Diabetes History of gastroesophageal reflux (GERD) History of lipoma Hyperlipidemia Hypertension Surgical History History of knee replacement History of neck surgery Family History Other Family history of cancer Family history of diabetes mellitus (DM) Family history of heart disease No significant family history Social History Smoking Status: Never smoker second hand exposure: No alcohol intake: never substance use type: denies use current occupational status: employed Travel in the last 8 weeks: None household members: spouse housing: house current occupation: [employer] current occupational exposures/hazards: No caffeine: Yes
[2023-05-29 12:52] VITALS: BP 162/85; PULSE 78; RESP 18; O2SAT 97; BMI 32.8
== END | disposition home or self-care (01) ==
PROVIDERS: Visit Provider Nurse Practitioner Family
DX: M51.16 Intervertebral disc disorders with radiculopathy, lumbar region (principal); M96.1 Postlaminectomy syndrome, not elsewhere classified
CPT/HCPCS: 99212; G0463

== ENCOUNTER → 2023-05-29 12:02 | Outpatient (CLI) | payer OTHER, SELFPAY ==
[2023-05-29 19:04] LABS: Barbiturates Screen,Urine Negative ng/ml (<200)
[2023-05-29 19:05] LABS: Benzodiazepines Screen,Urine Negative ng/ml (<200); Cannabinoid Screen,Urine Negative ng/ml (<50)
[2023-05-29 19:06] LABS: Cocaine Screen,Urine Negative ng/ml (<300)
[2023-05-29 19:07] LABS: Methadone Screen,Urine Negative ng/ml (<300); Opiate Screen,Urine Negative ng/ml (<300)
[2023-05-29 19:08] LABS: Phencyclidine Screen,Urine Negative ng/ml (<25)
[2023-05-29 22:23] LABS: Amphetamine/Metha Screen,Urine Negative ng/ml (<1000)
[2023-06-05 04:09] LABS: Opiates Negative (Cutoff=100); Oxycodone (GC/MS) 100 ng/mL (Cutoff=100); Oxymorphone (GC/MS) 100 ng/mL (Cutoff=100)
== END ==
LOC: LAB 12:02
PROVIDERS: PCP Internal Medicine; Visit Provider Nurse Practitioner Family
DX: Z79.891 Long term (current) use of opiate analgesic (principal)
CPT/HCPCS: 80183; 80305; 80361; 80365; G0480

== ENCOUNTER 2023-06-03 12:46 | Day surgery (SDC) | payer OTHER, SELFPAY ==
[2023-06-03 12:53] VITALS: BP 131/75; PULSE 110; RESP 20; TEMP 37.1; O2SAT 92; BMI 33.1
--- NOTE | 2023-06-03 13:09 | EXP.PAIN.PRO ---
Procedure Date: 06/03/23 Time: 12:55 Anesthesiologist:: Shakeel Luz CRNA Complications:: None Pre-procedure Diagnosis:: Degenerative disc disease lumbar spine multilevels. Lumbar radiculopathy. Lumbar postlaminectomy syndrome. Post-procedure Diagnosis:: Same. Indications for Procedure:: Patient is a very pleasant 57-year-old male that comes our clinic today for intrathecal pain pump interrogation and refill. Patient is currently being managed with bupivacaine 10 mg/mL at a rate of 2.42 mg/day. He is doing very well with his current settings. He does not report of any side effects or complications. Procedure Details:: Details of the procedure explained to the patient. The patient taken the procedure room placed in the sitting position. The area over the pump was cleansed using chlorhexidine as a cleansing solution. The pump was interrogated. The pump was accessed with ease using a 22-gauge inch and half needle. 6.2 mL of solution was withdrawn discarded appropriate. The pump was then filled incrementally with 20 cc of solution containing bupivacaine 10 mg/mL. Patient tolerated procedure without difficulty. No complications. Plan and Disposition:: Patient was discharged without incident.
[2023-06-03 13:14] VITALS: BP 145/71; PULSE 93; RESP 18; O2SAT 98
== END 2023-06-03 13:14 | disposition home or self-care (01) ==
PROVIDERS: PCP Internal Medicine; Visit Provider Nurse Anesthetist, Certified Registered
DX: M51.16 Intervertebral disc disorders with radiculopathy, lumbar region (principal); M96.1 Postlaminectomy syndrome, not elsewhere classified; Z97.8 Presence of other specified devices
CPT/HCPCS: 95991

== ENCOUNTER → 2023-06-26 10:07 | Outpatient (POV) | payer OTHER, SELFPAY ==
--- NOTE | 2023-06-26 10:53 | EXP.PAIN.SOA ---
[facility] Pain Management SOAP Note Subjective:: Patient is a pleasant 57-year-old male who presents today for 1 month follow-up. We are currently treating the patient for degenerative disc disease of lumbar spine with lumbar radiculopathy symptoms, lumbar postlaminectomy syndrome. Today he rates his pain a 5 out of 10. Patient denies any new trauma or injury. He does state that he started having some neck pain on Friday and that it has continued to be a aching sensation however he states he is unsure if it is related to the cold weather change. Patient is currently managed intrathecally with bupivacaine 10 mg/mL with a daily dose of 2.417 mg/day. He denies any side effects from this medication however he states he is not really sure how much it is really helping. Patient was previously being prescribed [place] 7.5 mg 4 times a day however I one of our last visits he did have an inappropriate drug screen and then did not go for a pill count. We did discuss over the phone with him regarding that we would not be able to continue his oral pain medications. Patient does acknowledge this during today's visit and states that even the pain medication was very hit or miss on how much improvement it provided. Patient does state he has tried injections in the past and somewhat helped more than others. His Serge has been reviewed. Review of Systems: General: No recent weight changes, no fever, no sleep disturbances Respiratory: No cough, no shortness of air, no recurring pulmonary infections Cardiovascular/peripheral vascular: No chest pain, no palpitations, no edema, no shortness of breath Gastrointestinal: No new onset incontinence, normal bowel movements reported Genitourinary: No new onset incontinence Musculoskeletal: Low back pain, neck pain Psychiatric: [Normal mood/affect] Neurological: [Denies weakness in extremities], [denies balance issues] Objective:: Physical Exam: General: Alert and oriented x3, no acute distress, pleasant and cooperative Lungs: Respirations even and unlabored, symmetrical chest expansion Eyes: PERRL Musculoskeletal: Flexion and extension of lumbar [spine] somewhat guarded secondary to pain, [antalgic gait noted] Neurological: Speech clear, no gross sensory deficit Assessment:: Degenerative disc disease of lumbar spine with lumbar radiculopathy symptoms, lumbar postlaminectomy syndrome, neck pain Plan:: I have discussed with the patient that we always can do additional adjustments to his bupivacaine pump medication however at this time we will keep it at the same dosage. I will order the patient a compounded cream. Patient will return to clinic in 1 month for reevaluation of symptoms and plan of care. We will see the patient back in the clinic at the next intrathecal refill. Patient has been instructed to contact the clinic with any concerns before the next appointment. Dr. Christine has reviewed this note and agrees with this plan of care. This note was dictated using voice recognition software and make contain errors or omissions. -- It Is medically necessary for this patient to continue to have their intrathecal pump refilled at regular intervals. This patient had an intrathecal pain pump implanted after meeting criteria of chronic intractable pain for greater than 3 months and failing conservative treatments. Patient has committed and been compliant to the treatment plan and all planned follow up care. Since implantation of the intrathecal pain pump, the patient has had decreased pain and been more functional. Oral medications have been reduced including intake of oral opioids. Patient continues to do well with intrathecal therapy with decrease in pain symptoms and increase in functional status. Stopping intrathecal medications can lead to life threatening withdrawal, seizures, cardiac arrest, severe pain, and possible . Pumps that are not refilled at regular intervals can be damages and cause and need for replacement. We continually tit
[2023-06-26 10:56] VITALS: BP 142/62; PULSE 88; RESP 20; O2SAT 94; BMI 33.1
== END ==
LOC: SC.PAIN 10:08
PROVIDERS: PCP Internal Medicine; Visit Provider Nurse Practitioner Family
DX: M51.16 Intervertebral disc disorders with radiculopathy, lumbar region (principal); M96.1 Postlaminectomy syndrome, not elsewhere classified; M54.2 Cervicalgia; Z97.8 Presence of other specified devices
CPT/HCPCS: 99212; G0463

== ENCOUNTER → 2023-07-23 10:48 | Outpatient (POV) | payer OTHER, SELFPAY ==
--- NOTE | 2023-07-23 11:46 | EXP.PAIN.SOA ---
[facility] Pain Management SOAP Note Subjective:: Patient is a pleasant 57-year-old male who presents today for 1 month follow-up. We are currently treating the patient for degenerative disc disease of lumbar spine with lumbar radiculopathy symptoms, lumbar postlaminectomy syndrome. Today he rates his pain a 5 out of 10. Patient denies any new trauma or injury. Patient is currently managed with bupivacaine 10 mg/mL with a daily dose of 2.417 mg/day. Patient denies any side effects from this medication. Patient is currently scheduled for his next intrathecal refill on 08 August. His Serge has been reviewed and is appropriate. Review of Systems: General: No recent weight changes, no fever, no sleep disturbances Respiratory: No cough, no shortness of air, no recurring pulmonary infections Cardiovascular/peripheral vascular: No chest pain, no palpitations, no edema, no shortness of breath Gastrointestinal: No new onset incontinence, normal bowel movements reported Genitourinary: No new onset incontinence Musculoskeletal: Low back pain Psychiatric: [Normal mood/affect] Neurological: [Denies weakness in extremities], [denies balance issues] Objective:: Physical Exam: General: Alert and oriented x3, no acute distress, pleasant and cooperative Lungs: Respirations even and unlabored, symmetrical chest expansion Eyes: PERRL Musculoskeletal: Flexion and extension of lumbar [spine] somewhat guarded secondary to pain, [antalgic gait noted] Neurological: Speech clear, no gross sensory deficit Assessment:: Degenerative disc disease of lumbar spine with lumbar radiculopathy symptoms, lumbar postlaminectomy syndrome Plan:: Patient is doing well with his current medication regimen. Patient will return to clinic for his next intrathecal refill and reprogram date. We will see the patient back in the clinic at the next intrathecal refill. Patient has been instructed to contact the clinic with any concerns before the next appointment. Dr. Christine has reviewed this note and agrees with this plan of care. This note was dictated using voice recognition software and make contain errors or omissions. -- It Is medically necessary for this patient to continue to have their intrathecal pump refilled at regular intervals. This patient had an intrathecal pain pump implanted after meeting criteria of chronic intractable pain for greater than 3 months and failing conservative treatments. Patient has committed and been compliant to the treatment plan and all planned follow up care. Since implantation of the intrathecal pain pump, the patient has had decreased pain and been more functional. Oral medications have been reduced including intake of oral opioids. Patient continues to do well with intrathecal therapy with decrease in pain symptoms and increase in functional status. Stopping intrathecal medications can lead to life threatening withdrawal, seizures, cardiac arrest, severe pain, and possible . Pumps that are not refilled at regular intervals can be damages and cause and need for replacement. We continually titrate dose and concentration to optimize pain relief and function. We are limited in concentration for certain drugs to safely deliver medications through the pump and stay within the recommendations from the Polyanalgesic Consensus Committee Guidelines. Depending on dose and concentration these pumps may need to be refilled sooner than 3 months as we titrate. [facility] Disclaimer: The information contained in this section may have been updated after the patient was seen, as this information can be updated by other users. Medical History Diabetes History of gastroesophageal reflux (GERD) History of lipoma Hyperlipidemia Hypertension Surgical History History of knee replacement History of neck surgery Family History (Reviewed 08/08/22 @ 12:30 by Stefan Pineda APRN
[2023-07-23 12:43] VITALS: BP 148/68; PULSE 89; RESP 18; O2SAT 95; BMI 33.1
== END ==
LOC: SC.PAIN 10:49
PROVIDERS: PCP Internal Medicine; Visit Provider Nurse Practitioner Family
DX: M51.16 Intervertebral disc disorders with radiculopathy, lumbar region (principal); M96.1 Postlaminectomy syndrome, not elsewhere classified; Z97.8 Presence of other specified devices
CPT/HCPCS: 99212; G0463

== ENCOUNTER 2023-08-08 13:05 | Day surgery (SDC) | payer OTHER, SELFPAY ==
[2023-08-08 13:10] VITALS: BP 154/78; PULSE 99; RESP 16; TEMP 37.4; O2SAT 94; BMI 33.1
[2023-08-08 13:16] VITALS: BP 155/96; PULSE 71; O2SAT 97
[2023-08-08 13:20] VITALS: BP 155/96; PULSE 94; O2SAT 95
--- NOTE | 2023-08-08 13:23 | EXP.PAIN.PRO ---
Procedure Date: 08/08/23 Time: 13:20 Anesthesiologist:: Shakeel Luz CRNA Complications:: None Pre-procedure Diagnosis:: Degenerative disc lumbar spine multilevels. Lumbar radiculopathy. Degenerative disc cervical spine cervical radiculopathy. Cervical postlaminectomy syndrome. Post-procedure Diagnosis:: Same. Indications for Procedure:: Patient is a very pleasant 57-year-old male comes our clinic today for intrathecal pain pump interrogation and refill. Patient is currently being managed with bupivacaine 10 mg/mL with a daily dose of 2.417 mg/day. Patient is doing adequately however not great according to his report. Patient states the pump has not been effective since pump was changed out 12 months ago. Patient requesting to have a consultation with Dr. Christine regarding treatment options. I think this is reasonable. Will set this up for him. He describes overall pain as constant, dull, aching. Pain in the cervical spine with some cervical radicular symptoms. Low back pain as well as bilateral hip and leg radicular symptoms at times. Procedure Details:: Details of the procedure explained to the patient. Patient taken to procedure room placed in the sitting position. The area over the pump is cleansed using chlorhexidine's cleansing solution. The pump was interrogated. The pump was accessed with ease using a 22-gauge inch and half needle. 3 mL of solution was withdrawn discarded appropriately. The pump was then filled with 20 cc of a solution containing bupivacaine 10 mg/mL. The rate will continue at 2. 4 1 7 mg/day. Patient tolerated procedure without difficulty. There are no complications Plan and Disposition:: Patient was discharged without incident.
[2023-08-08 13:30] VITALS: BP 157/82; PULSE 89; RESP 16; O2SAT 94
== END 2023-08-08 13:30 | disposition home or self-care (01) ==
PROVIDERS: PCP Internal Medicine; Visit Provider Nurse Anesthetist, Certified Registered
DX: M51.16 Intervertebral disc disorders with radiculopathy, lumbar region (principal); M50.10 Cervical disc disorder with radiculopathy, unspecified cervical region; M96.1 Postlaminectomy syndrome, not elsewhere classified; Z97.8 Presence of other specified devices; Z45.1 Encounter for adjustment and management of infusion pump
CPT/HCPCS: 95991

== ENCOUNTER 2023-08-09 13:54 | Emergency (ER) | payer OTHER, SELFPAY ==
[2023-08-09 14:25] VITALS: BP 141/86; PULSE 87; RESP 20; TEMP 37.2; O2SAT 96; BMI 28.3
--- NOTE | 2023-08-09 14:39 | EXP.UTC ---
Discharge Plan Disposition Patient Disposition: Home, Self-Care Condition: Good Prescriptions Prescriptions: New sulfamethoxazole-trimethoprim [Bactrim DS] 800-160 mg Tablet 1 tab PO BID Qty: 20 0RF cephalexin 500 mg capsule 500 mg PO QID Qty: 40 0RF No Action metformin 500 MG tablet 500 mg PO BID lisinopril 10 MG tablet 10 mg PO DAILY fenofibrate 160 MG tablet 160 mg PO DAILY Referrals Follow up/Referrals: Roman Keyes [Primary Care Provider] - See instructions Activity Restrictions/Add. Instructions Additional Instructions/Restrictions: Watch the area for signs of worsening infection, such as worsening redness, swelling, drainage, fever. etc. Take tylenol or ibuprofen for pain. Follow up with your regular doctor. GO TO THE ER FOR ANY WORSENING SYMPTOMS OR CONCERNS. Clinical Impressions Clinical Impression: Cellulitis Stand Alone Forms Stand Alone Forms: Work/School Release Instructions Patient Instructions: Cellulitis Discharge ED Provider: Stefan Pineda [facility] General Stated complaint: painful rash on left side abdomen Mode of Arrival: Ambulatory Source of Information: Patient Limitations: No Limitations Time Seen by Provider: 08/09/23 14:39 Description of Symptoms (Recalled from Triage Doc. by RN): PATIENT C/O RED AND PAINFUL RASH TO LEFT HIP AREA SINCE FRIDAY HEENT Symptoms (Recalled from RN notes): No Resp Symptoms (Recalled from RN notes): No Skin Symptoms (Recalled from RN notes): Yes MS Symptoms (Recalled from RN notes): No Functional Status (Recalled from RN notes): WNL History of Present Illness Provider Complaint: He states that he has had a red painful area on the left side of his abdomen for the past 3 days. He denies any injury. He denies fever, chills, body aches, malaise, etc. He is a diabetic. Related Data Home Medications Medication Instructions Recorded Confirmed fenofibrate 160 mg tablet 160 mg PO DAILY Cholesterol 05/13/18 08/09/23 lisinopril 10 mg tablet 10 mg PO DAILY blood pressure 05/13/18 08/09/23 metformin 500 mg tablet 500 mg PO BID Diabetes 05/13/18 08/09/23 Previous Rx's Medication Instructions Recorded cephalexin 500 mg capsule 500 mg PO QID #40 caps 08/09/23 sulfamethoxazole 800 1 tab PO BID #20 tabs 08/09/23 mg-trimethoprim 160 mg tablet (Bactrim DS) Allergies Allergy/AdvReac Type Severity Reaction Status Date / Time latex Allergy Intermediate swelling/it Verified 08/08/23 13:29 leydi Worker's Comp Is this a Worker's Comp case?: No [facility] Disclaimer: The information contained in this section may have been updated after the patient was seen, as this information can be updated by other users. Medical History Diabetes History of gastroesophageal reflux (GERD) History of lipoma Hyperlipidemia Hypertension Surgical History History of knee replacement History of neck surgery Family History Other Family history of cancer Family history of diabetes mellitus (DM) Family history of heart disease No significant family history Social History Smoking Status: Never smoker second hand exposure: No alcohol intake: never substance use type: denies use current occupational status: employed Travel in the last 8 weeks: None household members: spouse housing: house current occupation: [employer] current occupational exposures/hazards: No caffeine: Yes ROS Obtained: Yes All systems reviewed & no additional complaints except as documented Constitutional Constitutional: Denies chills and Denies fever(s) Eyes Eyes: Denies eye discharge ENT Ears, Nose, Mouth, and Throat: Denies dizziness, Denies otalgia and Denies sore throat Cardiovascular Cardiovascular:
[2023-08-09 15:08] VITALS: BP 141/86; PULSE 87; RESP 20; TEMP 37.2; O2SAT 96
== END 2023-08-09 15:11 | disposition home or self-care (01) ==
PROVIDERS: Emergency Provider Nurse Practitioner Family; PCP Internal Medicine
DX: L03.311 Cellulitis of abdominal wall (principal); E11.9 Type 2 diabetes mellitus without complications; E78.5 Hyperlipidemia, unspecified; I10 Essential (primary) hypertension; Z79.84 Long term (current) use of oral hypoglycemic drugs
CPT/HCPCS: 96372; 99212; 99214; G0463; J0696

== ENCOUNTER → 2023-09-05 12:50 | Outpatient (POV) | payer BC, SELFPAY ==
[2023-09-05 13:03] VITALS: BP 156/86; PULSE 96; RESP 18; O2SAT 95; BMI 33.7
--- NOTE | 2023-09-05 14:26 | EXP.PAIN.SOA ---
[facility] Pain Management SOAP Note Subjective:: This patient is a 58-year-old white male who has intrathecal bupivacaine currently going at 2.4 mg/day. He was also on oral medications previously. He is not doing well he still having some increasing pain. He does have problems with his intrathecal catheter. I talked to the patient about replacement of his intrathecal catheter to see if we can get him better relief of his pain symptoms. Patient says that he does not have any medication until October. I have talked to him about planning on replacing his intrathecal catheter in October. At that time we will put him back on intrathecal morphine and discontinue all oral opioids. Objective:: Alert and oriented x 3 no acute distress. Patient does have antalgic gait. Motor strength of lower extremities is 5/5. There is no gross sensory deficit. Assessment:: Degenerative disc disease of lumbar spine with lumbar radiculopathy symptoms and degenerative disease of the cervical spine with cervical radiculopathy symptoms Plan:: The patient says he does not want any oral opioids at this time. I told we will continue his intrathecal bupivacaine infusion and plan on replacing his intrathecal catheter in October. Patient has had a intrathecal catheter dye study and it did show kinking of the catheter. He is not getting adequate medication. He will need replacement of his intrathecal catheter for adequate infusion. He does have a malfunction of his intrathecal catheter currently. [facility] Disclaimer: The information contained in this section may have been updated after the patient was seen, as this information can be updated by other users. Medical History Diabetes History of gastroesophageal reflux (GERD) History of lipoma Hyperlipidemia Hypertension Surgical History History of knee replacement History of neck surgery Family History Other Family history of cancer Family history of diabetes mellitus (DM) Family history of heart disease No significant family history Social History Smoking Status: Never smoker second hand exposure: No alcohol intake: never substance use type: denies use current occupational status: other Travel in the last 8 weeks: None household members: spouse housing: house current occupation: [employer] current occupational exposures/hazards: No caffeine: Yes
== END ==
LOC: SC.PAIN 12:51
PROVIDERS: PCP Internal Medicine; Visit Provider Anesthesiology
DX: M51.16 Intervertebral disc disorders with radiculopathy, lumbar region (principal); M50.10 Cervical disc disorder with radiculopathy, unspecified cervical region; Z97.8 Presence of other specified devices
CPT/HCPCS: 99212; G0463

== ENCOUNTER 2023-10-07 12:46 | Day surgery (SDC) | payer BC, SELFPAY ==
[2023-10-07 13:04] VITALS: BP 144/69; PULSE 75; RESP 16; TEMP 36.6; O2SAT 95; BMI 33.1
[2023-10-07 13:11] VITALS: BP 160/85; PULSE 78; RESP 18; O2SAT 97
[2023-10-07 13:13] VITALS: BP 160/85; PULSE 78; RESP 18; O2SAT 98
[2023-10-07 13:20] VITALS: BP 152/85; PULSE 81; RESP 18; O2SAT 95
--- NOTE | 2023-10-07 13:22 | EXP.PAIN.PRO ---
Procedure Date: 10/07/23 Time: 13:10 Anesthesiologist:: Shakeel Luz CRNA Complications:: None Pre-procedure Diagnosis:: Degenerative disc lumbar spine multilevels. Lumbar radiculopathy. Degenerative disc cervical spine multilevels. Cervical radiculopathy. Post-procedure Diagnosis:: Same. Indications for Procedure:: Patient is a very pleasant 58-year-old male comes our clinic today for intrathecal pain pump interrogation refill. He is currently being managed with bupivacaine 10 mg/mL at a rate of 2.417 mg today. He is doing very well with his current settings. We discussed his intrathecal catheter that needs to be replaced. It appears she is on the schedule for next month with Dr. Christine for replacement. Procedure Details:: Details of the procedure explained to the patient. The patient taken the procedure room placed sitting position. The area of the pump is cleansed using chlorhexidine's cleansing solution. Pump was interrogated. The pump was accessed with ease using 22-gauge inch and half needle. 5 mL of solution was withdrawn discarded appropriate. The pump was then filled with 20 cc of solution containing bupivacaine 10 mg/mL. Pump rate will remain the same. Patient tolerated procedure without difficulty. There are no complications. Plan and Disposition:: Patient was discharged without incident.
== END 2023-10-07 13:20 | disposition home or self-care (01) ==
PROVIDERS: PCP Internal Medicine; Visit Provider Nurse Anesthetist, Certified Registered
DX: M51.16 Intervertebral disc disorders with radiculopathy, lumbar region (principal); M50.10 Cervical disc disorder with radiculopathy, unspecified cervical region; Z97.8 Presence of other specified devices; Z45.1 Encounter for adjustment and management of infusion pump
CPT/HCPCS: 95991

== ENCOUNTER 2023-12-05 07:05 | Day surgery (SDC) | payer BC, SELFPAY ==
[2023-12-04 08:40] VITALS: BMI 35.2
[2023-12-05 07:24] VITALS: BP 155/94; PULSE 81; RESP 18; TEMP 36.5; O2SAT 97
[2023-12-05] MEDS: LACTATED RINGERS 1000ML 1,000 ML 25 ML IV (07:38)
[2023-12-05 07:43] LABS: POC Glucose,Bedside 120 (70-110)
[2023-12-05] MEDS: VANCOMYCIN/WATER FOR INJ (PEG) 1.75 GM/350 ML PIGGYBACK IV ×2 (08:06→10:09)
[2023-12-05 08:10] LABS: Anion Gap 12.2 mEq/L (5-15); Blood Urea Nitrogen 14 mg/dl (9-20); Calcium 9.5 mg/dl (8.4-10.2); Carbon Dioxide 25 mmol/L (22.0-30.0); Chloride 107 mmol/L (98-107); Creatinine Clearance Estimated 194 mL/min (50-200); Estimated Glomerular Filt Rate 116 ml/min (>60); GFR (African American) 141 ML/MIN (>60); Glucose 129 mg/dl (74-100); Potassium 4.2 mmoL/L (3.5-5.1); Sodium 140 mmol/L (136-145)
[2023-12-05 08:13] LABS: Basophils # 0.1 K/mm3 (0-0.2); Basophils % 1.2 % (0.1-2.0); Eosinophils # 0.2 K/mm3 (0.0-0.4); Eosinophils % 2.7 % (0.1-12.0); Hematocrit 42.1 % (42.0-52.0); Hemoglobin 13.7 g/dL (14.1-18.0); Lymphocytes # 2.1 K/mm3 (0.7-4.5); Lymphocytes % 30.2 % (10-50); Mean Corpuscular HGB Conc 32.5 g/dL (31.8-35.4); Mean Corpuscular Hemoglobin 30.3 pg (27.0-31.2); Mean Platelet Volume 9.6 fl (7.4-10.4); Monocytes # 0.6 K/mm3 (0.1-1.0); Monocytes % 8.8 % (1.7-9.3); Neutrophils % 57.1 % (37.0-80.0); Platelet Count 211 K/mm3 (142-424); Red Blood Count 4.53 M/mm3 (4.60-6.20); Red Cell Distribution Width 12.8 % (11.5-17.5)
[2023-12-05 09:05] LABS: Hemoglobin A1C 6.9 % (4.0-6.0)
--- NOTE | 2023-12-05 09:41 | P.PNANES_ITS ---
[facility] Disclaimer: The information contained in this section may have been updated after the patient was seen, as this information can be updated by other users. Medical History History of lipoma Diabetes History of gastroesophageal reflux (GERD) Hyperlipidemia Hypertension Surgical History History of left hip replacement History of appendectomy History of cholecystectomy History of knee replacement History of neck surgery Family History Other Family history of cancer Family history of diabetes mellitus (DM) Family history of heart disease No significant family history Social History Smoking Status: Never smoker second hand exposure: No alcohol intake: current substance use type: denies use current occupational status: other Travel in the last 8 weeks: None household members: spouse housing: house current occupation: [employer] current occupational exposures/hazards: No caffeine: Yes [facility] Anesthesia Checklist Patient Identification Patient Identification: Arm Band Structural Data Admitted From: Home Planned Operative Procedure/s: Intrathecal Pain Pump Catheter Replacement Consent for Planned Operative Procedure(s) Verified: Yes Verified Documents: Surgical Consent and History and Physical NPO Status Verified Time NPO: 00:00 Additional verifications Anesthesia Reactions: No Hx Blood Transfusions: No Blood Transfusion Reaction: No Airway Assessment Mallampati Score:: Class II C-Spine Mobility Assessed: Yes TMJ Mobility Assessed: Yes Dentition: Good Dentition Neurological Assessment Level of Consciousness: Awake and Alert Anesthesia Plan Anesthesia Risk discussed: Yes Anesthesia Plan: Verified ASA Class: II Anesthesia Type: MAC
[2023-12-05] MEDS: LIDOCAINE 1% W/EPI 1:100,000 20ML VIAL 20 ML (09:43)
[2023-12-05] MEDS: SODIUM CHLORIDE 0.9% 20ML VIAL 40 ML IV (09:44)
[2023-12-05] MEDS: GENTAMICIN 80 MG/2 ML VIAL (09:44)
[2023-12-05 10:23] VITALS: BP 121/69; PULSE 85; RESP 16; TEMP 36.2; O2SAT 95
[2023-12-05 10:33] VITALS: BP 127/64; PULSE 77; RESP 16; O2SAT 97
--- NOTE | 2023-12-05 10:36 | EXP.OP.NOTE ---
Date of procedure: 12/05/23 Pre-op Diagnosis:: Nonfunctioning intrathecal catheter for degenerative disease of lumbar spine with lumbar radiculopathy symptoms and postlaminectomy syndrome lumbar spine Post-op Diagnosis:: Same Procedure performed:: Replacement intrathecal catheter with refill of pump with intrathecal morphine 1 mg/mL Surgeon:: Mani Christine MD CHIEF SCIENCE OFFICER:: Vishal Villarreal Anesthesia: MAC Estimated blood loss (mL): 5 Clinical Note:: This patient is a pleasant 58-year-old white male who has a intrathecal bupivacaine pain pump in place. He is not getting any relief with intrathecal bupivacaine. We have decided to switch him back to intrathecal morphine. We also did do a catheter dye study. His catheter is nonfunctioning. We will need to replace his intrathecal catheter today. Will use same pain pump generator. Will refill his pump with intrathecal morphine 1 mg per mall, 20 mL. Operative findings:: None Operative note:: Informed consent was obtained the risk and benefits of the procedure were explained to the patient. Patient was taken the operating room placed prone on the procedure table. He was prepped and draped in sterile fashion. The skin and subcutaneous tissue overlying the pain pump generator were anesthetized using lidocaine. I made an incision dissected out the pain pump generator. We explanted the generator. We tied off the catheter with 0 silk ties x 3. We disconnected the catheter from the pump. We emptied the pump of intrathecal bupivacaine. Patient had 6 mL of intrathecal bupivacaine in the pump. We refill the pump with 20 mL of intrathecal morphine 1 mg/mL. C-arm fluoroscopy was used to view the lumbar spine at L4-5 and L5-S1. The skin and subcutaneous tissues adjacent to L4-5 and L5-S1 were anesthetized using lidocaine. I made an incision dissected down to the lumbar paraspinous fascia. A 17-gauge spinal needle was inserted and advanced into the L4-L5 interspace. After obtaining clear CSF intrathecal catheter was inserted and advanced very easily to the T8 vertebral body. Catheter placement was in good position it was midline and posterior. The stylette of the catheter and the needle withdrawn. The catheter secured to the fascia with an anchor device and 2-0 Prolene. I tunneled the catheter from the back to the pump pocket and attached catheter to the pump. Pump was then placed in the pocket with an antibiotic pouch. We are able to freely draw clear CSF through the sideport. Both incisions were then closed with 2-0 Vicryl followed by ligia. The patient was placed in an abdominal binder taken recovery in stable condition. Patient tolerated the procedure well with no complications. The pump was interrogated and started at 0.1 mg/day of intrathecal morphine. PTM boluses were started at 0.01 mg up to 4 times a day. Patient tolerated the procedure well with no complications. Patient was discharged home neurologic intact with good relief of pain symptoms Plan and disposition: We will follow-up with this patient in 1 week for reprogramming and wound check. Will follow-up in 2 weeks for staple removal. Condition: stable Disposition: PACU Complications:: None
[2023-12-05 10:43] VITALS: BP 123/69; PULSE 78; RESP 16; O2SAT 97
[2023-12-05 10:53] VITALS: BP 131/66; PULSE 78; RESP 16; TEMP 36.6; O2SAT 98
--- NOTE | 2023-12-05 12:56 | SUR.PHASEII ---
verbal order from dr. hatfield - Bactemerita DS 1 tablet PO BID x5 days. Prescription called in to [facility] pharmacy. Pt notified via phone of prescription called in.
== END 2023-12-05 11:10 | disposition home or self-care (01) ==
PROVIDERS: PCP Internal Medicine; Visit Provider Anesthesiology
PROC: (CPT 62350; principal; 2023-12-05 08:30)
DX: T85.690A Other mechanical complication of cranial or spinal infusion catheter, initial encounter (principal); M51.16 Intervertebral disc disorders with radiculopathy, lumbar region; M96.1 Postlaminectomy syndrome, not elsewhere classified; Z45.1 Encounter for adjustment and management of infusion pump; E11.9 Type 2 diabetes mellitus without complications
CPT/HCPCS: 62350; 95991; 80048; 82962; 83036; 85025; 96374; C1755

== ENCOUNTER 2023-12-11 10:10 | Outpatient (POV) | payer BC, SELFPAY ==
[2023-12-11 10:19] VITALS: BP 129/59; PULSE 79; RESP 18; O2SAT 95; BMI 32.5
--- NOTE | 2023-12-11 10:34 | P.PCN_ITS ---
Procedure Date: 12/11/23 Time: 10:34 Anesthesiologist:: Amy Nguyen APRN Complications:: None Pre-procedure Diagnosis:: Degenerative disc disease of lumbar spine with lumbar radiculopathy symptoms, lumbar postlaminectomy syndrome Post-procedure Diagnosis:: Same Indications for Procedure:: Patient is a pleasant 58-year-old male who presents today for 1 week postop of intrathecal replacement on 12/05/2023. Today he rates his pain a 4 out of 10. Patient denies any problems following his surgical procedure. Patient does state that he feels like he might have already noticed some improvement compared to his previous pump. Patient is currently managed with morphine 1 mg/mL with a daily dose of 0.1001 mg/day. He denies any side effects from this medication. His Serge has been reviewed and is appropriate. Physical Exam: General: Alert and oriented x3, no acute distress, pleasant and cooperative Lungs: Respirations even and unlabored, symmetrical chest expansion Eyes: PERRL Musculoskeletal: Flexion and extension of lumbar [spine] somewhat guarded secondary to pain, [antalgic gait noted] Neurological: Speech clear, no gross sensory deficit Skin: Incision sites are clean, dry, well-approximated with ligia intact and mild erythema noted along the staple line at the lateral incision Procedure Details:: Informed consent was obtained and the risk and benefits of the procedure were explained to the patient. Patient was taken to the procedure room where noninvasive monitoring was placed including noninvasive blood pressure cuff and pulse oximeter. Patient's pump was interrogated and was reprogrammed to morphine 0.11 mg/day. The patient tolerated the procedure well with no complications. Plan and Disposition:: Patient tolerated his intrathecal increase with no complications and was discharged neurologically intact. I have discussed with the patient that we will plan on seeing him back in 2 weeks to take out his ligia and we will do every other one. Patient was counseled as long as that looks good we will take all of the samples and apply some skin glue and Steri-Strips. Patient has been counseled to continue his postop restrictions of no submerging in water until his incisions are fully healed, minimal bending lifting and twisting and to continue to use his abdominal binder to prevent seroma formation. Patient acknowledges understanding and agrees with this plan of care. Patient will return to clinic in 2 weeks for reevaluation of symptoms and plan of care. Patient has been instructed to contact the clinic with any concerns before the next appointment. Dr. Christine has reviewed this note and agrees with this plan of care. This note was dictated using voice recognition software and make contain errors or omissions. -- It Is medically necessary for this patient to continue to have their intrathecal pump refilled at regular intervals. This patient had an intrathecal pain pump implanted after meeting criteria of chronic intractable pain for greater than 3 months and failing conservative treatments. Patient has committed and been compliant to the treatment plan and all planned follow up care. Since implantation of the intrathecal pain pump, the patient has had decreased pain and been more functional. Oral medications have been reduced including intake of oral opioids. Patient continues to do well with intrathecal therapy with decrea se in pain symptoms and increase in functional status. Stopping intrathecal medications can lead to life threatening withdrawal, seizures, cardiac arrest, severe pain, and possible . Pumps that are not refilled at regular intervals can be damages and cause and need for replacement. We continually titrate dose and concentration to optimize pain relief and function. We are limited in concentration for certain drugs to safely deliver medications through the pump and stay within the recommendations from the Polyanalgesic Consensus Committee Guidelines. Depending on dose and concentration these pumps may need to be refilled sooner than 3 months as we titrate.
== END 2023-12-11 23:59 | disposition home or self-care (01) ==
PROVIDERS: PCP Internal Medicine; Visit Provider Nurse Practitioner Family
DX: M51.16 Intervertebral disc disorders with radiculopathy, lumbar region (principal); M96.1 Postlaminectomy syndrome, not elsewhere classified; Z97.8 Presence of other specified devices; Z45.1 Encounter for adjustment and management of infusion pump
CPT/HCPCS: 62368; 99212; G0463

== ENCOUNTER 2023-12-26 09:32 | Outpatient (POV) | payer BC, SELFPAY ==
[2023-12-26 10:01] VITALS: BP 129/75; PULSE 80; RESP 18; O2SAT 94; BMI 33.1
--- NOTE | 2023-12-26 10:19 | A.OFFVIS_ITS ---
[facility] Pain Management SOAP Note Subjective:: Patient is a pleasant 58-year-old male who presents today for staple removal. Today he rates his pain a 4 out of 10. He denies any new trauma or injury. Patient does feel like his current medication dosage is working well with morphine 1 mg/mL with a daily dose of 0.11 mg/day. He denies any side effects from this medication. His Serge has been reviewed and is appropriate. Review of Systems: General: No recent weight changes, no fever, no sleep disturbances Respiratory: No cough, no shortness of air, no recurring pulmonary infections Cardiovascular/peripheral vascular: No chest pain, no palpitations, no edema, no shortness of breath Gastrointestinal: No new onset incontinence, normal bowel movements reported Genitourinary: No new onset incontinence Musculoskeletal: Low back pain Psychiatric: [Normal mood/affect] Neurological: [Denies weakness in extremities], [denies balance issues] Objective:: Physical Exam: General: Alert and oriented x3, no acute distress, pleasant and cooperative Lungs: Respirations even and unlabored, symmetrical chest expansion Eyes: PERRL Musculoskeletal: Flexion and extension of lumbar [spine] somewhat guarded secondary to pain, [antalgic gait noted] Neurological: Speech clear, no gross sensory deficit Assessment:: Degenerative disc disease of lumbar spine with lumbar radiculopathy symptoms Plan:: Patient was able to have almost all of his ligia removed except for 3. I have counseled the patient to continue his full 6-week postop restrictions and that we will see him back next week to remove the remaining 3 ligia. Patient has been counseled to contact our office with any issues between now and his next appointment. Patient will return to clinic in 1 week for possible intrathecal adjustment and reprogram pain staple removal. Patient has been instructed to contact the clinic with any concerns before the next appointment. Dr. Christine has reviewed this note and agrees with this plan of care. This note was dictated using voice recognition software and make contain errors or omissions. -- It Is medically necessary for this patient to continue to have their intrathecal pump refilled at regular intervals. This patient had an intrathecal pain pump implanted after meeting criteria of chronic intractable pain for greater than 3 months and failing conservative treatments. Patient has committed and been compliant to the treatment plan and all planned follow up care. Since implantation of the intrathecal pain pump, the patient has had decreased pain and been more functional. Oral medications have been reduced including intake of oral opioids. Patient continues to do well with intrathecal therapy with decrease in pain symptoms and increase in functional status. Stopping int rathecal medications can lead to life threatening withdrawal, seizures, cardiac arrest, severe pain, and possible . Pumps that are not refilled at regular intervals can be damages and cause and need for replacement. We continually titrate dose and concentration to optimize pain relief and function. We are limited in concentration for certain drugs to safely deliver medications through the pump and stay within the recommendations from the Polyanalgesic Consensus Committee Guidelines. Depending on dose and concentration these pumps may need to be refilled sooner than 3 months as we titrate. [facility] Disclaimer: The information contained in this section may have been updated after the p atient was seen, as this information can be updated by other users. Medical History History of lipoma Diabetes History of gastroesophageal reflux (GERD) Hyperlipidemia Hypertension Surgical History History of left hip replacement History of appendectomy History of cholecystectomy History of knee replacement History of neck surgery Family History Other Family history of cancer Family history of diabetes mellitus (DM) Family history of heart disease No significant family history Social History Smoking Status: Never smoker second hand exposure: No alcohol intake: current alcohol intake frequency: holidays/special occasions only substance use type: denies use current occupational status: employed Travel in the last 8 weeks: None household members: spouse housing: house current occupation: [employer] current occupational exposures/hazards: No caffeine: Yes
== END 2023-12-26 23:59 | disposition home or self-care (01) ==
LOC: SC.PAIN 09:33
PROVIDERS: PCP Internal Medicine; Visit Provider Nurse Practitioner Family
DX: M51.16 Intervertebral disc disorders with radiculopathy, lumbar region (principal); Z97.8 Presence of other specified devices
CPT/HCPCS: 99212; 99213; G0463

== ENCOUNTER 2024-01-01 09:17 | Outpatient (POV) | payer BC, SELFPAY ==
--- NOTE | 2024-01-01 09:30 | P.PCN_ITS ---
Procedure Date: 01/01/24 Time: 09:30 Anesthesiologist:: Amy Nguyen APRN Complications:: None Pre-procedure Diagnosis:: Degenerative disc disease of lumbar spine with lumbar radiculopathy symptoms, lumbar postlaminectomy syndrome Post-procedure Diagnosis:: Same Indications for Procedure:: Patient is a pleasant 58-year-old male who presents today for intrathecal adjustment and reprogram and removal of the remainder of his ligia. Patient states overall he is doing well. He does state that he is having some itching over the lateral incision due to the ligia. He is currently managed with morphine 1 mg/mL with a daily dose of 0.11 mg/day. He denies any side effects from this medication. He does state that he is getting more used to the medication and does feel like it is helping but could use a little bit increase. His Serge has been reviewed and is appropriate. Physical Exam: General: Alert and oriented x3, no acute distress, pleasant and cooperative Lungs: Respirations even and unlabored, symmetrical chest expansion Eyes: PERRL Musculoskeletal: Flexion and extension of lumbar [spine] somewhat guarded secondary to pain, [antalgic gait noted] Neurological: Speech clear, no gross sensory deficit Skin: Incisions are clean, dry, well-approximated with midline incision fully healed and the lateral incision has a small area of skin flap with mild erythema and 3 ligia intact Procedure Details:: Informed consent was obtained and the risk and benefits of the procedure were explained to the patient. Patient was taken to the procedure room where noninvasive monitoring was placed including noninvasive blood pressure cuff and pulse oximeter. Patient's pump was interrogated and was reprogrammed to morphine 0.1208 mg/day. The patient tolerated the procedure well with no complications. Plan and Disposition:: Patient tolerated his intrathecal increase with no complications since we have officially taking out all of his ligia in his incisions he is still to c ontinue his postop restrictions for the full 6 weeks. We did apply skin glue and Steri-Strips on the lateral incision after staple removal. Patient will return to clinic in 1 month for reevaluation of symptoms and plan of care. Patient has been instructed to contact the clinic with any concerns before the next appointment. Dr. Christine has reviewed this note and agrees with this plan of care. This note was dictated using voice recognition software and make contain errors or omissions. -- It Is medically necessary for this patient to continue to have their intrathecal pump refilled at regular intervals. This patient had an intrathecal pain pump implanted after meeting criteria of chronic intractable pain for greater than 3 months and failing conservative treatments. Patient has committed and been compliant to the treatment plan and all planned follow up care. Since implantation of the intrathecal pain pump, the patient has had decreased pain and been more functional. Oral medications have been reduced including intake of oral opioids. Patient continues to do well with intrathecal therapy with decrease in pain symptoms and increase in functional status. Stopping intrathecal medications can lead to life threatening withdrawal, seizures, cardiac arrest, severe pain, and possible . Pumps that are not refilled at regular intervals can be damages and cause and need for replacement. We continually titrate dose and concentration to optimize pain relief and function. We are limited in concentration for certain drugs to safely deliver medications through the pump and stay within the recommendations from the Polyanalgesic Consensus Committee Guidelines. Depending on dose and concentration these pumps may need to be refilled sooner than 3 months as we titrate.
[2024-01-01 10:00] VITALS: BP 141/79; PULSE 80; RESP 18; TEMP 36.7; O2SAT 98; BMI 33.1
== END 2024-01-01 23:59 | disposition home or self-care (01) ==
PROVIDERS: PCP Internal Medicine; Visit Provider Nurse Practitioner Family
DX: M51.16 Intervertebral disc disorders with radiculopathy, lumbar region (principal); M96.1 Postlaminectomy syndrome, not elsewhere classified; Z97.8 Presence of other specified devices; Z45.1 Encounter for adjustment and management of infusion pump
CPT/HCPCS: 62368; 99212; G0463

== ENCOUNTER 2024-01-29 10:21 | Outpatient (POV) | payer BC, SELFPAY ==
[2024-01-29 10:34] VITALS: BP 139/76; PULSE 91; RESP 16; O2SAT 96; BMI 34.3
--- NOTE | 2024-01-29 10:37 | A.OFFVIS_ITS ---
[facility] Pain Management SOAP Note Subjective:: Patient is a pleasant 58-year-old male who presents today for 1 month follow-up. Today he rates his pain a 3 out of 10. Patient denies any new trauma or injury. He does state that he is doing well with his current dosage. Patient states he has only had to use 1 bolus in the last week or so. He is currently managed with morphine 1 mg/mL with a daily dose of morphine 0.1208 mg/day. He denies any side effects from this medication. His Serge has been reviewed and is appropriate. Review of Systems: General: No recent weight changes, no fever, no sleep disturbances Respiratory: No cough, no shortness of air, no recurring pulmonary infections Cardiovascular/peripheral vascular: No chest pain, no palpitations, no edema, no shortness of breath Gastrointestinal: No new onset incontinence, normal bowel movements reported Genitourinary: No new onset incontinence Musculoskeletal: Low back pain Psychiatric: [Normal mood/affect] Neurological: [Denies weakness in extremities], [denies balance issues] Objective:: Physical Exam: General: Alert and oriented x3, no acute distress, pleasant and cooperative Lungs: Respirations even and unlabored, symmetrical chest expansion Eyes: PERRL Musculoskeletal: Flexion and extension of lumbar [spine] somewhat guarded secondary to pain, [antalgic gait noted] Neurological: Speech clear, no gross sensory deficit Assessment:: Degenerative disc disease of lumbar spine with lumbar radiculopathy symptoms Plan:: Patient's incisions are fully healed and he is officially released from his postop restrictions. Patient is doing well with his current dosage and does not need any additional adjustment. Patient does already have his next intrathecal refill date and he has been counseled that we will leave this appointment date and if he needs as any time before this that he can call and schedule an additional office visit. Patient acknowledges understanding and agrees with plan of care. We will see the patient back in the clinic at the next intrathecal refill. Patient has been instructed to contact the clinic with any concerns before the next appointment. Dr. Christine has reviewed this note and agrees with this plan of care. This note was dictated using voice recognition software and make contain errors or omissions. -- It Is medically necessary for this patient to continue to have their intrathecal pump refilled at regular intervals. This patient had an intrathecal pain pump implanted after meeting criteria of chronic intractable pain for greater than 3 months and failing conservative treatments. Patient has committed and been compliant to the treatment plan and all planned follow up care. Since implantation of the intrathecal pain pump, the patient has had decreased pain and been more functional. Oral medications have been reduced including intake of oral opioids. Patient continues to do well with intrathecal therapy with decrease in pain symptoms and increase in functional status. Stopping intrathecal medications can lead to life threatening withdrawal, seizures, cardiac arrest, severe pain, and possible . Pumps that are not refilled at regular intervals can be damages and cause and need for replacement. We continually titrate dose and concentration to optimize pain relief and function. We are limited in concentration for certain drugs to safely deliver medications through the pump and stay within the recommendations from the Polyanalgesic Consensus Committee Guidelines. Depending on dose and concentration these pumps may need to be refilled sooner than 3 months as we titrate. [facility] Disclaimer: The information contained in this section may have been updated after the patient was seen, as this information can be updated by other users. Medical History History of lipoma Diabetes History of gastroesophageal reflux (GERD) Hyperlipidemia Hypertension Surgical History History of left hip replacement History of appendectomy History of cholecystectomy History of knee replacement History of neck surgery Family History Other Family history of cancer Family history of diabetes mellitus (DM) Family history of heart disease No significant family history Social History Smoking Status: Never smoker second hand exposure: No alcohol intake: current alcohol intake frequency: holidays/special occasions only substance use type: denies use current occupational status: other Travel in the last 8 weeks: None household members: spouse housing: house current occupation: [employer] current occupational exposures/hazards: No caffeine: Yes
== END 2024-01-29 23:59 | disposition home or self-care (01) ==
LOC: SC.PAIN 10:22
PROVIDERS: PCP Internal Medicine; Visit Provider Nurse Practitioner Family
DX: M51.16 Intervertebral disc disorders with radiculopathy, lumbar region (principal); Z97.8 Presence of other specified devices
CPT/HCPCS: 99212; G0463

== ENCOUNTER 2024-03-23 09:24 | Day surgery (SDC) | payer BC, SELFPAY ==
[2024-03-23 09:25] VITALS: BP 132/74; PULSE 92; RESP 16; TEMP 36.6; O2SAT 94; BMI 33.7
[2024-03-23 09:47] VITALS: BP 129/72; PULSE 93; RESP 18; O2SAT 96
[2024-03-23 09:48] VITALS: BP 129/72; PULSE 91; RESP 18; O2SAT 96
--- NOTE | 2024-03-23 09:54 | EXP.PAIN.PRO ---
Procedure Date: 03/23/24 Time: 09:45 Anesthesiologist:: Shakeel Luz CRNA Complications:: None Pre-procedure Diagnosis:: Degenerative disc lumbar spine multilevels. Lumbar radiculopathy. Lumbar postlaminectomy syndrome. Post-procedure Diagnosis:: Same. Indications for Procedure:: Patient is a very pleasant 58-year-old male comes our clinic today for intrathecal pain pump interrogation refill. Patient is currently being managed with morphine sulfate 1 mg/mL at a rate of 0.1 to 08 mg/day. Patient is not reporting any side effects or complications. He is not requesting any changes. Procedure Details:: Details of the procedure explained to the patient. The patient was taken the procedure room placed in the sitting position. The area over the pumps cleansed using chlorhexidine as a cleansing solution. The pump was interrogated. The pump was accessed with ease using a 22-gauge inch and half needle. 6.5 mL of solution was withdrawn discarded appropriate. The pump was then filled with 20 cc of solution containing morphine sulfate 1 mg/mL. The rate will continue at 0.1208 mg/day. Patient tolerated procedure without difficulty. There are no complications. Plan and Disposition:: Patient was discharged without incident.
[2024-03-23 09:59] VITALS: BP 142/78; PULSE 82; RESP 18; O2SAT 95
== END 2024-03-23 09:59 | disposition home or self-care (01) ==
PROVIDERS: PCP Internal Medicine; Visit Provider Nurse Anesthetist, Certified Registered
DX: G89.29 Other chronic pain (principal); Z79.891 Long term (current) use of opiate analgesic; M51.36 Other intervertebral disc degeneration, lumbar region
CPT/HCPCS: 95991

== ENCOUNTER 2024-06-22 07:57 | Day surgery (SDC) | payer BC, SELFPAY ==
[2024-06-22 08:25] VITALS: BP 152/74; PULSE 80; RESP 16; TEMP 36.3; O2SAT 97; BMI 33.1
[2024-06-22 09:00] VITALS: BP 159/75; PULSE 81; RESP 16; O2SAT 94
--- NOTE | 2024-06-22 10:19 | P.PCN_ITS ---
Procedure Date: 06/22/24 Time: 09:45 Anesthesiologist:: Shakeel Luz CRNA Complications:: None Pre-procedure Diagnosis:: Degenerative disc lumbar spine multilevels. Lumbar radiculopathy. Lumbar postlaminectomy syndrome. Post-procedure Diagnosis:: Same. Indications for Procedure:: Patient is a very pleasant 58-year-old male who comes our clinic today for intrathecal pain pump interrogation and refill. Patient currently being managed with morphine sulfate 1 mg/mL at a rate of 0.1 to 08 mg/day. He is doing very well with his current settings. He is not requesting any changes. He does not reporting side effects or complications. Patient is awake alert [place] x 3. In no acute distress. Flexion-extension lumbar spine somewhat guarded secondary to pain. Deep tendon reflexes upper and lower extremities normal. Motor strength upper and lower extremities normal. There is no gross sensory deficit. Gait is normal. Procedure Details:: Details of the procedure explained to the patient. The patient taken procedure room placed in the sitting position. They over the pump was cleaned using chlorhexidine as a cleansing solution. The pump was interrogated. The pump was accessed with ease using a 22-gauge inch and half needle. 8 mL of solution was withdrawn and discarded appropriate. The pump was then filled with 20 cc of solution containing morphine sulfate 1 mg/mL. No changes in pump rate. Patient tolerated procedure without difficulty. There are no complications. Plan and Disposition:: Patient was discharged without incident.
== END 2024-06-22 09:00 | disposition home or self-care (01) ==
LOC: SC.PAINP 07:58
PROVIDERS: PCP Internal Medicine; Visit Provider Nurse Anesthetist, Certified Registered
DX: M51.16 Intervertebral disc disorders with radiculopathy, lumbar region (principal); M96.1 Postlaminectomy syndrome, not elsewhere classified
CPT/HCPCS: 95991

== ENCOUNTER 2024-09-17 09:37 | Day surgery (SDC) | payer BC, SELFPAY ==
--- NOTE | 2024-09-17 09:51 | EXP.PAIN.PRO ---
Procedure Date: 09/17/24 Time: 10:30 Anesthesiologist:: Amy Nguyen APRN Complications:: None Pre-procedure Diagnosis:: Degenerative disc disease of lumbar spine with lumbar radiculopathy symptoms Post-procedure Diagnosis:: Same Indications for Procedure:: Patient is a pleasant 59-year-old male who presents today for intrathecal refill and reprogram. Today he rates his pain a 4 out of 10. He denies any new trauma or injury. He does state that his current dosage is working well and denies any additional adjustment. He is currently managed with morphine 1 mg/mL with a daily dose of 0.1208 mg/day. He denies any side effects.His Serge has been reviewed and is appropriate. Physical Exam: General: Alert and oriented x3, no acute distress, pleasant and cooperative Lungs: Respirations even and unlabored, symmetrical chest expansion Eyes: PERRL Musculoskeletal: Flexion and extension of lumbar [spine] somewhat guarded secondary to pain, [antalgic gait noted] Neurological: Speech clear, no gross sensory deficit Procedure Details:: Informed consent was obtained and the risk and benefits of the procedure were explained to the patient. The patient had noninvasive monitoring placed including noninvasive blood pressure cuff and pulse oximeter. Patient's pump was interrogated. The area over the pump was cleansed with chlorhexidine as a cleansing solution. In sterile fashion the pump was accessed with a 22-gauge needle. Approximately 9.8 mls of the pump solution was removed and discarded appropriately. The pump was then refilled with 20 mL's of morphine 1 mg/mL. The needle was withdrawn and a bandage was placed over the puncture site. The infusion rate was reprogrammed and continued at morphine 0.1208 mg/day. The patient tolerated well with no complication. Plan and Disposition:: Patient tolerated the procedure well with no complications and was discharged neurologically intact. Patient will return to clinic on or before their next intrathecal refill date. We will see the patient back in the clinic at the next intrathecal refill. Patient has been instructed to contact the clinic with any concerns before the next appointment. Dr. Christine has reviewed this note and agrees with this plan of care. This note was dictated using voice recognition software and make contain errors or omissions. -- It Is medically necessary for this patient to continue to have their intrathecal pump refilled at regular intervals. This patient had an intrathecal pain pump implanted after meeting criteria of chronic intractable pain for greater than 3 months and failing conservative treatments. Patient has committed and been compliant to the treatment plan and all planned follow up care. Since implantation of the intrathecal pain pump, the patient has had decreased pain and been more functional. Oral medications have been reduced including intake of oral opioids. Patient continues to do well with intrathecal therapy with decrease in pain symptoms and increase in functional status. Stopping intrathecal medications can lead to life threatening withdrawal, seizures, cardiac arrest, severe pain, and possible . Pumps that are not refilled at regular intervals can be damages and cause and need for replacement. We continually titrate dose and concentration to optimize pain relief and function. We are limited in concentration for certain drugs to safely deliver medications through the pump and stay within the recommendations from the Polyanalgesic Consensus Committee Guidelines. Depending on dose and concentration these pumps may need to be refilled sooner than 3 months as we titrate. A UDS is needed to verify patient's compliance with our office pain contract. This is ordered based off specific treatments related to chronic pain with the potential to abuse certain medications.
[2024-09-17 09:58] VITALS: BP 136/78; PULSE 84; RESP 16; TEMP 36.7; O2SAT 97; BMI 33.1
[2024-09-17 10:22] VITALS: BP 138/68; PULSE 77; RESP 18; O2SAT 96
[2024-09-17 10:34] VITALS: BP 132/77; PULSE 65; RESP 16; O2SAT 95
== END 2024-09-17 10:34 | disposition home or self-care (01) ==
PROVIDERS: PCP Internal Medicine; Visit Provider Nurse Practitioner Family
DX: M51.16 Intervertebral disc disorders with radiculopathy, lumbar region (principal)
CPT/HCPCS: 62370

== ENCOUNTER 2024-12-17 10:13 | Day surgery (SDC) | payer BC, SELFPAY ==
--- NOTE | 2024-12-17 10:27 | EXP.HP ---
History of Present Illness *Admission Date: 12/17/24 *Reason for visit:: Intrathecal refill; DDD *History of present illness: Degenerative disc disease [facility] Disclaimer: The information contained in this section may have been updated after the patient was seen, as this information can be updated by other users. Medical History (Updated 12/17/24 @ 10:28 by Amy Nguyen APRN) Sinusitis History of lipoma Diabetes History of gastroesophageal reflux (GERD) Hyperlipidemia Hypertension Surgical History History of left hip replacement History of appendectomy History of cholecystectomy History of knee replacement History of neck surgery Family History Other Family history of cancer Family history of diabetes mellitus (DM) Family history of heart disease No significant family history Social History Smoking Status: Never smoker second hand exposure: No alcohol intake: current alcohol intake frequency: holidays/special occasions only substance use type: denies use current occupational status: employed Travel in the last 8 weeks: None household members: spouse housing: house current occupation: [employer] current occupational exposures/hazards: No caffeine: Yes Have you lived/traveled outside [place] in past 30 days?: No Contact w/someone who lives/traveled outside US past 30 days?: No Exposure to someone with infectious disease in past 14 days?: No Do you have a fever (greater than 100.4 F or 38 C)?: No Have you tested positive for COVID-19: No Exposed to someone with COVID-19 in past 14 days?: No Do you have a sore throat?: No Do you have a cough?: No Do you have any weakness?: No Do you have any diarrhea?: No Are you experiencing any unusual bleeding?: No Do you have any muscle aches/pain?: No Do you have any abdominal pain?: No Are you experiencing loss of taste or smell?: No Other Medical History Have you received the Flu Vaccine for this season: No Have you received the Pneumonia Vaccine: No Review of Systems Review of Systems Review of systems:: pertinent systems reviewed and negative unless documented below Review of systems (narrative): Review of Systems: General: No recent weight changes, no fever, no sleep disturbances Respiratory: No cough, no shortness of air, no recurring pulmonary infections Cardiovascular/peripheral vascular: No chest pain, no palpitations, no edema, no shortness of breath Gastrointestinal: No new onset incontinence, normal bowel movements reported Genitourinary: No new onset incontinence Musculoskeletal: Chronic back pain Psychiatric: [Normal mood/affect] Neurological: [Denies weakness in extremities], [denies balance issues] Constitutional Constitutional: Reports system reviewed and no additional complaints, except as documented Meds Home Medications and Allergies Home Medications ?Medication ?Instructions ?Recorded ?Confirmed ?Type fenofibrate 160 mg tablet 160 mg PO DAILY Cholesterol 05/13/18 11/30/24 History lisinopril 10 mg tablet 10 mg PO DAILY blood pressure 05/13/18 11/30/24 History metformin 500 mg tablet 500 mg PO BID Diabetes 05/13/18 11/30/24 History atorvastatin 10 mg tablet (Lipitor) 10 mg PO HS Cholesterol 01/29/24 11/30/24 History cholecalciferol (vitamin D3) 125 See Rx Instructions .Route 01/29/24 11/30/24 History mcg (5,000 unit) tablet (Vitamin .COMPLEX SUPPLIMENT D3) azithromycin 250 mg tablet See Rx Instructions PO .COMPLEX #6 11/30/24 11/30/24 Rx tabs benzonatate 100 mg capsule 100 mg PO TID PRN cough #30 caps 11/30/24 11/30/24 Rx guaifenesin 1,200 mg tablet, 1,200 mg PO BID #20 tabs 11/30/24 11/30/24 Rx extended release 12 hr (Mucinex) New Prescriptions to Start Prescriptions: Allergies Allergy/AdvReac Type Severity Reaction Status Date / Time latex Allergy Intermediate swelling/it Verified 11/30/24 12:53 leydi Exam Constitutional Constitutional: no acute distress *Routine HEENT Exam Head: Present normocephalic and atraumatic Eye: Present PERRL ENT: Present mucous membranes moist *Routine Neck Exam Neck: Present supple *Routine Respiratory Exam Respiratory: Present CTA bilaterally *Routine Cardiovascular Exam Cardiovascular: Present RRR *Routine Abdominal Exam Abdominal: Present soft *Routine Rectal Exam Rectal:: deferred *Routine Genitalia Exam Genitalia:: normal male Routine Back/Spine/Pelvis Exam Back/Spine: Present pain with flexion *Routine Neurological Exam Neurological: Present alert and oriented X3 Routine Psychiatric Exam Psychiatric: Present normal affect Assessment and Plan *Assessment and plan (1) Chronic back pain: Status: Acute Category: Medical Code(s): M54.9 - Dorsalgia, unspecified; G89.29 - Other chronic pain Plan Patient has been instructed to contact the clinic with any concerns before the next appointment. Dr. Christine has reviewed this note and agrees with this plan of care. This note was dictated using voice recognition software and make contain errors or omissions. All injections are used with Lidocaine, Bupivacaine and dexamethasone. Occasionally urine drug screen is needed to verify patient's compliance with our office pain contract. This is ordered based off specific treatments related to chronic pain with the potential to abuse certain medications.
[2024-12-17 10:28] VITALS: BP 142/91; PULSE 77; RESP 16; TEMP 36.6; O2SAT 96; BMI 33.1
--- NOTE | 2024-12-17 10:28 | EXP.PAIN.PRO ---
Procedure Date: 12/17/24 Time: 11:00 Anesthesiologist:: Amy Nguyen APRN Complications:: None Pre-procedure Diagnosis:: Degenerative disc disease lumbar spine, chronic pain syndrome Post-procedure Diagnosis:: Same Indications for Procedure:: Patient is a pleasant 59-year-old male who presents today for intrathecal refill and reprogram. Today he rates his pain a 4 out of 10. He denies any new trauma or injury. He states overall he is doing well with his intrathecal pump. Patient is currently managed with morphine 1 mg/mL with a daily dose of 0.1208 mg/day. He denies any side effects. His Serge has been reviewed and is appropriate. Physical Exam: General: Alert and oriented x3, no acute distress, pleasant and cooperative Lungs: Respirations even and unlabored, symmetrical chest expansion Eyes: PERRL Musculoskeletal: Flexion and extension of lumbar [spine] somewhat guarded secondary to pain, [antalgic gait noted] Neurological: Speech clear, no gross sensory deficit Procedure Details:: Informed consent was obtained and the risk and benefits of the procedure were explained to the patient. The patient had noninvasive monitoring placed including noninvasive blood pressure cuff and pulse oximeter. Patient's pump was interrogated. The area over the pump was cleansed with chlorhexidine as a cleansing solution. In sterile fashion the pump was accessed with a 22-gauge needle. Approximately 9 mls of the pump solution was removed and discarded appropriately. The pump was then refilled with 20 mL's of morphine 1 mg/mL. The needle was withdrawn and a bandage was placed over the puncture site. The infusion rate was reprogrammed and continued at its current dosage. The patient tolerated well with no complication. Plan and Disposition:: Patient tolerated the procedure well with no complications and was discharged neurologically intact. Patient will return to clinic on or before their next intrathecal refill date. We will see the patient back in the clinic at the next intrathecal refill. Patient has been instructed to contact the clinic with any concerns before the next appointment. Dr. Christine has reviewed this note and agrees with this plan of care. This note was dictated using voice recognition software and make contain errors or omissions. -- It Is medically necessary for this patient to continue to have their intrathecal pump refilled at regular intervals. This patient had an intrathecal pain pump implanted after meeting criteria of chronic intractable pain for greater than 3 months and failing conservative treatments. Patient has committed and been compliant to the treatment plan and all planned follow up care. Since implantation of the intrathecal pain pump, the patient has had decreased pain and been more functional. Oral medications have been reduced including intake of oral opioids. Patient continues to do well with intrathecal therapy with decrease in pain symptoms and increase in functional status. Stopping intrathecal medications can lead to life threatening withdrawal, seizures, cardiac arrest, severe pain, and possible . Pumps that are not refilled at regular intervals can be damages and cause and need for replacement. We continually titrate dose and concentration to optimize pain relief and function. We are limited in concentration for certain drugs to safely deliver medications through the pump and stay within the recommendations from the Polyanalgesic Consensus Committee Guidelines. Depending on dose and concentration these pumps may need to be refilled sooner than 3 months as we titrate. A UDS is needed to verify patient's compliance with our office pain contract. This is ordered based off specific treatments related to chronic pain with the potential to abuse certain medications.
[2024-12-17 10:58] VITALS: BP 126/71; PULSE 73; RESP 18; O2SAT 95
[2024-12-17 10:59] VITALS: BP 126/71; PULSE 73; RESP 18; O2SAT 95
[2024-12-17 11:10] VITALS: BP 153/95; PULSE 72; RESP 16; O2SAT 95
== END 2024-12-17 11:10 | disposition home or self-care (01) ==
PROVIDERS: PCP Internal Medicine; Visit Provider Nurse Practitioner Family
DX: G89.4 Chronic pain syndrome (principal); M51.369 Other intervertebral disc degeneration, lumbar region without mention of lumbar back pain or lower extremity pain
CPT/HCPCS: 62370; 99221

== ENCOUNTER 2025-03-18 13:00 | Day surgery (SDC) | payer BC, SELFPAY ==
--- NOTE | 2025-03-18 13:09 | EXP.PM.HP ---
History of Present Illness *Admission Date: 03/18/25 *Reason for visit:: Intrathecal refill; DDD *History of present illness: Same [facility] Disclaimer: The information contained in this section may have been updated after the patient was seen, as this information can be updated by other users. Medical History Sinusitis History of lipoma Diabetes History of gastroesophageal reflux (GERD) Hyperlipidemia Hypertension Surgical History History of left hip replacement History of appendectomy History of cholecystectomy History of knee replacement History of neck surgery Family History Other Family history of cancer Family history of diabetes mellitus (DM) Family history of heart disease No significant family history Social History Smoking Status: Never smoker second hand exposure: No alcohol intake: current alcohol intake frequency: holidays/special occasions only substance use type: denies use current occupational status: employed Travel in the last 8 weeks?: None household members: spouse housing: house current occupation: [employer] current occupational exposures/hazards: No caffeine: Yes Have you lived/traveled outside US in past 30 days?: No Contact w/someone who lives/traveled outside US past 30 days?: No Exposure to someone with infectious disease in past 14 days?: No Do you have a fever (greater than 100.4 F or 38 C)?: No Have you tested positive for COVID-19?: No Exposed to someone with COVID-19 in past 14 days?: No Do you have a sore throat?: No Do you have a cough?: No Do you have any weakness?: No Do you have any diarrhea?: No Are you experiencing any unusual bleeding?: No Do you have any muscle aches/pain?: No Do you have any abdominal pain?: No Are you experiencing loss of taste or smell?: No Other Medical History Have you received the Flu Vaccine for this season: No Have you received the Pneumonia Vaccine: No Review of Systems Review of Systems Review of systems:: pertinent systems reviewed and negative unless documented below Review of systems (narrative): Review of Systems: General: No recent weight changes, no fever, no sleep disturbances Respiratory: No cough, no shortness of air, no recurring pulmonary infections Cardiovascular/peripheral vascular: No chest pain, no palpitations, no edema, no shortness of breath Gastrointestinal: No new onset incontinence, normal bowel movements reported Genitourinary: No new onset incontinence Musculoskeletal: Chronic back pain Psychiatric: [Normal mood/affect] Neurological: [Denies weakness in extremities], [denies balance issues] Meds Home Medications and Allergies Home Medications ?Medication ?Instructions ?Recorded ?Confirmed ?Type fenofibrate 160 mg tablet 160 mg PO DAILY Cholesterol 05/13/18 11/30/24 History lisinopril 10 mg tablet 10 mg PO DAILY blood pressure 05/13/18 11/30/24 History metformin 500 mg tablet 500 mg PO BID Diabetes 05/13/18 11/30/24 History atorvastatin 10 mg tablet (Lipitor) 10 mg PO HS Cholesterol 01/29/24 11/30/24 History cholecalciferol (vitamin D3) 125 See Rx Instructions .Route 01/29/24 11/30/24 History mcg (5,000 unit) tablet (Vitamin .COMPLEX SUPPLIMENT D3) azithromycin 250 mg tablet See Rx Instructions PO .COMPLEX #6 11/30/24 11/30/24 Rx tabs benzonatate 100 mg capsule 100 mg PO TID PRN cough #30 caps 11/30/24 11/30/24 Rx guaifenesin 1,200 mg tablet, 1,200 mg PO BID #20 tabs 11/30/24 11/30/24 Rx extended release 12 hr (Mucinex) New Prescriptions to Start Prescriptions: Allergies Allergy/AdvReac Type Severity Reaction Status Date / Time latex Allergy Intermediate swelling/it Verified 11/30/24 12:53 leydi Exam Constitutional Constitutional: no acute distress *Routine HEENT Exam Head: Present normocephalic and atraumatic Eye: Present PERRL ENT: Present mucous membranes moist *Routine Neck Exam Neck: Present supple *Routine Respiratory Exam Respiratory: Present CTA bilaterally *Routine Cardiovascular Exam Cardiovascular: Present RRR *Routine Abdominal Exam Abdominal: Present soft *Routine Rectal Exam Rectal:: deferred *Routine Genitalia Exam Genitalia:: deferred Routine Back/Spine/Pelvis Exam Back/Spine: Present pain with flexion *Routine Skin Exam Skin: Present intact and warm *Routine Neurological Exam Neurological: Present alert and oriented X3 Routine Psychiatric Exam Psychiatric: Present normal affect and normal thought process Assessment and Plan *Assessment and plan (1) Chronic back pain: Status: Acute Category: Medical Code(s): M54.9 - Dorsalgia, unspecified; G89.29 - Other chronic pain Plan Patient has been instructed to contact the clinic with any concerns before the next appointment. Dr. Christine has reviewed this note and agrees with this plan of care. This note was dictated using voice recognition software and make contain errors or omissions. All injections are used with Lidocaine, Bupivacaine and dexamethasone. Occasionally urine drug screen is needed to verify patient's compliance with our office pain contract. This is ordered based off specific treatments related to chronic pain with the potential to abuse certain medications.
[2025-03-18 13:11] VITALS: BP 144/82; PULSE 66; RESP 18; O2SAT 98; BMI 33.1
--- NOTE | 2025-03-18 13:12 | P.PCN_ITS ---
Procedure Date: 03/18/25 Time: 13:12 Anesthesiologist:: Amy Nguyen APRN Complications:: None Pre-procedure Diagnosis:: Degenerative disc disease of lumbar spine, chronic back pain Post-procedure Diagnosis:: Same Indications for Procedure:: Patient is a pleasant 59-year-old male who presents today for intrathecal refill and reprogram. Today he rates his pain a 5 out of 10. He denies any new falls or injuries. He is currently managed with morphine 1 mg/mL with a daily dose of 0.1 to 08 mg/day. He denies any side effects. His Serge has been reviewed and is appropriate. Physical Exam: General: Alert and oriented x3, no acute distress, pleasant and cooperative Lungs: Respirations even and unlabored, symmetrical chest expansion Eyes: PERRL Musculoskeletal: Flexion and extension of lumbar [spine] somewhat guarded secondary to pain, [antalgic gait noted] Neurological: Speech clear, no gross sensory deficit Procedure Details:: Informed consent was obtained and the risk and benefits of the procedure were explained to the patient. The patient had noninvasive monitoring placed including noninvasive blood pressure cuff and pulse oximeter. Patient's pump was interrogated. The area over the pump was cleansed with chlorhexidine as a cleansing solution. In sterile fashion the pump was accessed with a 22-gauge needle. Approximately 8.2 mls of the pump solution was removed and discarded appropriately. The pump was then refilled with 20 mL's of morphine 1 mg/mL]. The needle was withdrawn and a bandage was placed over the puncture site. The infusion rate was reprogrammed and continued at its current dosage. The patient tolerated well with no complication. Plan and Disposition:: Patient tolerated the procedure well with no complications and was discharged neurologically intact. Patient will return to clinic on or before their next intrathecal refill date. We will see the patient back in the clinic at the next intrathecal refill. Patient has been instructed to contact the clinic with any concerns before the next appointment. Dr. Christine has reviewed this note and agrees with this plan of care. This note was dictated using voice recognition software and make contain errors or omissions. -- It Is medically necessary for this patient to continue to have their intrathecal pump refilled at regular intervals. This patient had an intrathecal pain pump implanted after meeting criteria of chronic intractable pain for greater than 3 months and failing conservative treatments. Patient has committed and been compliant to the treatment plan and all planned follow up care. Since implantation of the intrathecal pain pump, the patient has had decreased pain and been more functional. Oral medications have been reduced including intake of oral opioids. Patient continues to do well with intrathecal therapy with decrease in pain symptoms and increase in functional status. Stopping intrathecal medications can lead to life threatening withdrawal, seizures, cardi ac arrest, severe pain, and possible . Pumps that are not refilled at regular intervals can be damages and cause and need for replacement. We continually titrate dose and concentration to optimize pain relief and function. We are limited in concentration for certain drugs to safely deliver medications through the pump and stay within the recommendations from the Polyanalgesic Consensus Committee Guidelines. Depending on dose and concentration these pumps may need to be refilled sooner than 3 months as we titrate. A UDS is needed to verify patient's compliance with our office pain contract. This is ordered based off specific treatments related to chronic pain with the potential to abuse certain medications.
[2025-03-18 13:16] VITALS: BP 136/76; PULSE 81; RESP 18; O2SAT 97
[2025-03-18 13:27] VITALS: BP 154/85; PULSE 81; RESP 18; O2SAT 96
== END 2025-03-18 13:27 | disposition home or self-care (01) ==
PROVIDERS: PCP Internal Medicine; Visit Provider Nurse Practitioner Family
DX: Z45.1 Encounter for adjustment and management of infusion pump (principal); M51.369 Other intervertebral disc degeneration, lumbar region without mention of lumbar back pain or lower extremity pain; E11.9 Type 2 diabetes mellitus without complications; K21.9 Gastro-esophageal reflux disease without esophagitis; E78.5 Hyperlipidemia, unspecified; I10 Essential (primary) hypertension; Z91.040 Latex allergy status; Z79.84 Long term (current) use of oral hypoglycemic drugs; Z79.899 Other long term (current) drug therapy
CPT/HCPCS: 62370

== ENCOUNTER 2025-04-08 14:41 | Outpatient (CLI) | payer BC, SELFPAY ==
--- OUTSIDE RECORDS SUMMARY | 2025-04-08 14:43 | XMS_ITS | Clinical Summary ---
Author Organization [facility] Address [address] [place] [address] Care Team Providers Care Machine Inker Name Role Phone Roman Keyes MD Primary Care Provider [phone] Allergies No known active allergies Medications Semaglutide,0.2 5 or 0.5MG/DOS, (OZEMPIC) 2 MG/3ML solution pen-injectorInd ications:Type 2 diabetes mellitus without complication, without long-term current use of insulin,Mild obesity Inject 0.25 mg under the skin into the appropriate area as directed 1 (One) Time Per Week. 3 mL 2 09/06/19 25 Active fenofibrate 160 MG tabletIndicatio ns:Dyslipidemia Take 1 tablet by mouth Every Morning. 90 tablet 3 09/06/19 25 Active atorvastatin (LIPITOR) 10 MG tabletIndicatio ns:Dyslipidemia TAKE 1 TABLET BY MOUTH EVERY DAY AT NIGHT 90 tablet 3 01/06/20 25 Active metFORMIN (GLUCOPHAGE) 500 MG tabletIndicatio ns:Type 2 diabetes mellitus without complication, without long-term current use of insulin TAKE 1 TABLET BY MOUTH TWICE A DAY 180 tablet 3 01/06/20 25 Active Cholecalciferol (Vitamin D3) 50 MCG (1999) tabletIndicatio ns:Vitamin D deficiency TAKE 1 TABLET BY MOUTH EVERY DAY 90 tablet 04/04/20 25 Active lisinopril (PRINIVIL,ZESTR IL) 10 MG tabletIndicatio ns:Primary hypertension TAKE 1 TABLET BY MOUTH EVERY DAY 30 tablet 04/05/20 25 Active lisinopril (PRINIVIL,ZESTR IL) 10 MG tabletIndicatio ns:Primary hypertension Take 1 tablet by mouth Daily. 90 tablet 3 01/15/20 24 08/12/2 025 Discontinued Cholecalciferol (Vitamin D) 50 MCG (1999 UT) tabletIndicatio ns:Vitamin D deficiency Take 1 tablet by mouth Daily. 90 tablet 3 01/20/20 24 025 Discontinued Active Problems Problem Noted Date Diagnosed Date Type 2 diabetes mellitus wit h diabetic neuropathy, without long-term current use of insulin 01/15/2024 Moderate obesity 01/15/2024 Assessment & Plan (01/15/2024 12:39 PM EDT): Emphasized need to improve physical activity as well as his diet in order to promote weight loss, anticipating if his insurance will cover his Ozempic at a reasonable roberts that he will get a benefit with weight loss from this medication additionally. Screening for thyroid disorder 01/15/2024 Sebaceous cyst 01/15/2024 Assessment & Plan (01/15/2024 12:39 PM EDT): 2 sebaceous cysts around his mid thoracic spine along with a subcutaneous nodule, possibly sebaceous cyst over the left mid lateral humeral region. Referred to dermatology for evaluation and management, patient desiring removal given discomfort. Wart of hand 01/15/2024 Assessment & Plan (01/15/2024 12:39 PM EDT): Single wart over the right dorsal hand, feeling [id number] cryotherapy application by patient. Given patient will be referred to dermatology for sebaceous cyst, will simply allow weather clerk to manage this wart. I did recommend use of Compound W topically in the interim. Cervicalgia 02/18/2023 Overview (02/18/2023): Status post cervical fusion C6-7, ACDF, Dr. [place], 2004 Inadequately controlled diabetes mellitus 2022 Type 2 diabetes mellitus wit hout complication, without long-term current use of insulin 12/19/2022 Overview (09/06/2024): Hemoglobin A1c 6.8% in 12/2023, 6.7% in 08/2024 Assessment & Plan (09/06/2024 6:20 PM EST): Currently taking metformin 500 mg twice daily and Ozempic 0.25 mg subcu weekly, having not tolerate the higher dose of Ozempic 0.5 mg given GI side effects. Hemoglobin A1c today very satisfactory at 6.7%. Continue metformin given high deductible, will switch brand-name Ozempic to generic semaglutide 0.25 mg subcu weekly. Advise regarding need to improve his exercise as well as his diet. Reassess clinically in the next couple months. Assessment & Plan (01/15/2024 12:38 PM EDT): Recently had been identified as having some neuropathic symptoms, currently no sign of any side effects including neuropathy, with hemoglobin A1c today of 6.8% taking metformin 500 mg twice daily. 1 year ago had been prescribed Ozempic but cannot afford the co-pay. Now has new insurance and will represcribe Ozempic to see if more affordable, with indications and contraindications of this medication, as well as mechanism of action and potential side effects and benefits discussed. Up-to-date with diabetic eye evaluation, encouraged to improve his diet as well as physical activity. Reassess clinically in 2 months. Primary hypertension 12/19/2022 Assessment & Plan (09/06/2024 6:18 PM EST): Satisfactory blood pressure control acutely as well as by history chronically taking lisinopril 10 mg daily. Continue current regimen. Assessment & Plan (01/15/2024 12:36 PM EDT): Stage II elevation acutely, satisfactory control chronically reported by patient taking lisinopril 10 mg daily. Continue current regimen with monitoring, continue efforts at healthy lifestyle with diet exercise and avoidance of added salt. Dyslipidemia 12/19/2022 Assessment & Plan (09/06/2024 6:21 PM EST): Refill fenofibrate, continuing atorvastatin. Update lipid profile at recommended upcoming complete physical Assessment & Plan (01/15/2024 12:36 PM EDT): Taking fenofibrate 160 mg daily, currently not on a statin. Update lipid profile and make further recommendations accordingly. Mild obesity 12/19/2022 Assessment & Plan (09/06/2024 6:20 PM EST): 12 pound weight loss in the last 7 months, undoubtably benefited by his Ozempic therapy. Encouraged to improve his diet and exercise, and will continue now generic and brand name semaglutide 0.25 mg weekly Vitamin D deficiency 12/19/2022 Gastroesophageal reflux disease without esophagi tis 12/19/2022 Low testosterone in male 12/19/2022 Vasculogenic erectile dysfunction 12/19/2022 Peyronie's disease 12/19/2022 Encounters Date Type Department Care Team Description 04/05/2025 Refill [facility] [address] [place] [address] Roman Keyes MD Primary hypertension 04/04/2025 Refill [facility] [address] [place], [place] [address] Roman Keyes MD Vitamin D deficiency from Last 3 Months Immunizations Immunization Administration Dates Next Due -influenza Vac Quardvalent Preservativ 018 COVID-19 (PFIZER) Purple Cap Monovalent 12/02/19 21,11/10/2020 Fluzone (or Fluarix & Flulav al for VFC) >6mos 06/24/2022,06/15/2020 Influenza Seasonal Injectable 06/02/2024, 021,04/28/2018 Pneumococcal Conjugate 20-Valent (PCV20) 025 Tdap 09/06/2024 Social History Tobacco Use Types Packs/Day Years Used Date Smoking Tobacco: Never Smokeless Tobacco: Never Tobacco Cessation:Counseling Given: Not Answered Alcohol Use Standard Drinks/Week Comments Yes 0 (1 standard drink = 0.6 oz pur e alcohol) social PHQ-2 Answer Date Recorded Retired PHQ-9: Brief Depression Severity Measure Score 0 12/20/2022 PHQ-2 Answer Date Recorded Patient Health Questionnaire-2 Score 0 09/06/2024 Sex and Gender Information Value Date Recorded Sex Assigned at Not on file Legal Sex Male 12:21 PM EDT Gender Identity Not on file Sexual Orientation Not on file Last Filed Vital Signs Vital Sign Reading Time Taken Comments Blood Pressure 132/88 09/06/2024 9:51 AM EST Pulse 94 09/06/2024 9:51 AM EST Temperature 36.6 C (97.8 F) 09/06/2024 9:51 AM EST Respiratory Rate 18 09/06/2024 9:51 AM EST Oxygen Saturation 96% 09/06/2024 9:51 AM EST Inhaled Oxygen Concentration - - Weight 121 kg (266 lb 12.8 oz) 09/06/2024 9:51 A M EST Height 188 cm (6' 2 ) 09/06/2024 9:51 AM EST Body Mass Index 34.26 09/06/2024 9:51 AM EST Plan of Treatment Health Maintenance Due Date Last Done Comments Hepatitis B (1 of 3 - 19+ 3- dose series) 1985 COLOGUARD 2011 COLON CANCER SCREENING 5 YEA R SIGMOIDOSCOPY 2011 COLONOSCOPY 2011 [address]AL CANCER SCREENING 2011 CT COLONOGRAPHY 2011 FECAL OCCULT BLOOD TEST 2011 FIT Testing (1 year) 2011 ZOSTER VACCINE (1 of 2) 2016 ANNUAL PHYSICAL 08/13/2022 HEPATITIS C SCREENING 08/13/2022 COVID-19 Vaccine (3 - 2023-2 5 season) 2024 12/01/2020, 11/10/2020 HEMOGLOBIN A1C 03/06/2025 09/06/2024, 052 10/2023, 12/20/2022 DIABETIC EYE EXAM 04/27/2025 04/27/2024, (Patient-Reported (Performed Externally)) INFLUENZA VACCINE 05/25/2025 06/02/2024, , 06/21/2021, Additional history exists DIABETIC FOOT EXAM 09/06/2025 09/06/2024, 0 09/06/2024, 09/06/2024, Additional history exists URINE MICROALBUMIN-CREATININ E RATIO (uACR) 09/06/2025 09/06/2024 TDAP/TD VACCINES (2 - Td or Tdap) 09/06/2034 025 Pneumococcal Vaccine 50+ Completed 09/06/2024 Procedures Procedure Name Priority Date/Time Associated Diagnosis Comments SCANNED - LABS 03/25/2025 SCANNED - LABS 03/25/2025 SCANNED - LABS 03/25/2025 SCANNED - LABS 03/25/2025 SCANNED - IMAGING 03/25/2025 SCANNED - IMAGING 03/25/2025 POCT GLYCOSYLATED HEMOGLOBIN (HGB A1C) Routine 09/06/2024 10:48 AM EST Type 2 diabetes mellitus without complication, without long-term current use of insulin SCANNED - EYE EXAM 04/27/2024 from Last 3 Months or Most Recently Relevant to Health Maintenance Results * IMAGING SCANNED (03/25/2025) Only the most recent of2 resultswithin the time period is included. Anatomical Region Laterality Modality Radiographic Minerva ging us Roman Keyes MD IMG DIAGNOSTIC IMAGING ORDERAB LES Final Result * LABS SCANNED (03/25/2025) Only the most recent of4 resultswithin the time period is included. us Roman Keyes MD LAB BLOOD ORDERABLES Final Res ult * (ABNORMAL) POC Glycosylated Hemoglobin (Hb A1C) (09/06/2024 10:48 AM EST) Hemoglobin A1C 6.7(A) 4.5 - 5.7 % [facility] Lot Number [id number] [facility] Expiration Date 06/04/2026 [facility] Blood 09/06/2024 10:4 8 AM EST us Roman Keyes MD POINT OF CARE TEST ORDERABLES Final Result [facility]
[address] [place] [address], [place] [phone] * EYE EXAM SCANNED (04/27/2024) Anatomical Region Laterality Modality Other us Roman Keyes MD CHART REVIEW TABS Final Res ult from Last 3 Months or Most Recently Relevant to Health Maintenance Insurance [employer] PPO Care Teams Machine Inker Relationship Specialty Start Date End Date Roman Keyes MD [address] [place] [address] PCP - General Internal Medicine 09/02/22
--- OUTSIDE RECORDS SUMMARY | 2025-04-08 14:43 | XMS_ITS | Encounter Summary ---
Author Organization [facility] Address [address] [place] [id number] Care Team Providers Care Meter Reader Name Role Phone Roman Keyes MD Primary Care Provider [phone] Reason for Visit * Reason Comments Med Refill Encounter Details Date Type Department Care Team (Late st Contact Info) Description 04/05/2025 Refill [facility] [address] [place] [address] Roman Keyes MD [address] [place] [address] [place] [address] Primary hypertension Social History Tobacco Use Types Packs/Day Years Used Date Smoking Tobacco: Never Smokeless Tobacco: Never Alcohol Use Standard Drinks/Week Comments Yes 0 [...] on file Sexual Orientation Not on file documented as of this encounter Miscellaneous Notes * Telephone Encounter - [place] Velásquez - 04/05/2025 8:46 AM EDT I have left him a vm regarding needing to schedule a physical as soon as he can. Last seen on 08/2024. TF documented in this encounter Plan of Treatment Not on file documented as of this encounter Visit Diagnoses Diagnosis Primary hypertension Unspecified essential hypertension documented in this encounter Care Teams Meter Reader Relationship Specialty Start Date End Date Roman Keyes MD [address] [place] [address] PCP - General Internal Medicine 09/02/22 documented as of this encounter
--- OUTSIDE RECORDS SUMMARY | 2025-04-08 14:43 | XMS_ITS | Encounter Summary ---
Author Organization [facility] Address [address] [address] Care Team Providers Care Salon Customer Experience Specialist Name Role Phone Roman Keyes MD Primary Care Provider Reason for Visit * Reason Comments Med Refill Encounter Details Date Type Department Care Team (Late st Contact Info) Description 04/04/2025 Refill [facility] [address] [place] [address] [place] [id number] Roman Keyes MD [address] [place] [address] [place] [address] Vitamin D deficiency Social History Tobacco Use Types Packs/Day Years [...] on file documented as of this encounter Plan of Treatment Not on file documented as of this encounter Visit Diagnoses Diagnosis Vitamin D deficiency documented in this encounter Care Teams Salon Customer Experience Specialist Relationship Specialty Start Date End Date Roman Keyes MD [address] [place] [address] [place] [address] PCP - General Internal Medicine 09/02/22 documented as of this encounter
--- OUTSIDE RECORDS SUMMARY | 2025-04-08 14:43 | XMS_ITS | Clinical Summary ---
Author Organization [facility] Address [address] [place] [address] Care Team Providers Care Accounts Receivable Executive Name Role Phone Roman Keyes MD Primary Care Provider [phone] Social History Tobacco Use Types Packs/Day Years Used Date Smoking Tobacco: Never Assessed Sex and Gender Information Value Date Recorded Sex Assigned at Not on file Legal Sex Male 8:39 PM EDT Gender Identity Not on file Sexual Orientation Not on file Plan of Treatment Health Maintenance Due Date Last Done Comments [facility]-Depression Screening 1966 [facility]-Infant/Child/Adol SDOH Screenings 1966 [facility]- SDOH Screenings 1984 [facility]-Adult SDOH Screenings 1984 [facility]-DTaP,Tdap,and Td Vaccine s (1 - Tdap) 1985 [facility]-Hepatitis B Vaccines (1 of 3 - 19+ 3-dose series) 1985 CT Colonography 2011 Colonoscopy 2011 FIT-DNA 2011 FIT 2011 FOBT 2011 Sigmoidoscopy 2011 [facility]-Colorectal Cancer Screening 2011 [facility]-Pneumococcal Vaccine: 50 + Years (1 of 1 - PCV) 2016 [facility]-Zoster Vaccines (1 of 2) 2016 [id number] Vaccine (1 - 20 24-25 season) 2024 [facility]-Influenza Vaccine (#1) 2025 HPV Vaccines Aged Out No longer eligi ble based on patient's age to complete this topic [facility]-HIB Vaccines Aged Out No longer e ligible based on patient's age to complete this topic [facility]-Hepatitis A Vaccines Aged Out No longer eligible based on patient's age to complete this topic [facility]-IPV Vaccines Aged Out No longer e ligible based on patient's age to complete this topic [facility]-Rotavirus Vaccines Aged Out No lo nger eligible based on patient's age to complete this topic Care Teams Accounts Receivable Executive Relationship Specialty Start Date End Date Roman Keyes MD [address] [place] [address] PCP - General 01/05/21
--- NOTE | 2025-04-08 15:15 | CA_ITS ---
APPROVED REPORT EXAM: Comprehensive 2D, Doppler, and color-flow Echocardiogram Manufacturing Director: Neda Michele RT(R) Ht: 6 ft 3 in Wt: 262lbs BSA: 2.46 BP: 159/73 mmHg Indications: chest pain, Diabetes. 2D Dimensions LVEF (Nuñez's) 66.00 % M: 52 - 72 LV Volume 121.90 mL M: 62 - 150 LV Volume Index 49.6 mL/m2 M: 34 - 74 LA Volume 44.10 mL LA Volume Index 17.93 mL/m2 (M/F) 16-34 EF AP4 66.20 % EF AP2 65.9 % EF BP 66.0 % GL Strain -19.9 % M-Mode Dimensions RVDd 3.31 cm (0.9-2.6) LA Diam 3.79 cm (1.9-4.0) LVDd 5.52 cm (3.5-5.7) LVDs 3.86 cm (3.5-5.7) IVSd 0.85 cm (0.6-1.1) PWd 0.68 cm (0.6-1.1) EF (Teich) 56.80% FS 30.10% EDV (Teich) 148.70 mL ESV (Teich) 64.30 mL LV Diastology E Decel Time 180 (160-240 msec) E/A Ratio 1.2 Mitral Valve MV E Max Vik. 96.0 (40-130 cm/s) MV A Velocity 78.0 (40-130 cm/s) E/A Ratio 1.24 MV PHT 53.0 ms Left Ventricle The left ventricle is normal size. Left ventricular systolic function is normal. The left ventricular ejection fraction is within the normal range. There is increased ormal left ventricular wall thickness. There is normal LV segmental wall motion. The left ventricular diastolic function is normal. LVEF is 55% Right Ventricle The right ventricle is normal size. The right ventricular systolic function is normal. Atria The left atrium is mildly dilated. The right atrium is mildly dilated. There is no color Doppler evidence of interatrial shunt. Aortic Valve The aortic valve is mildly thickened. There is no hemodynamically significant aortic valvular stenosis. Trace aortic regurgitation is present. Mitral Valve The mitral valve is normal in structure. No evidence of mitral valve stenosis. Mild mitral regurgitation is present. Tricuspid Valve The tricuspid valve leaflets are thin and pliable. Trace tricuspid regurgitation. There is insufficient TR jet to estimate RVSP. Pulmonic Valve The pulmonary valve is grossly normal in structure. Trace pulmonic valve regurgitation is present. Great Vessels The aortic root is normal in size. IVC is normal in size and collapses >50% with inspiration. Pericardium There is no pericardial effusion. Other Information Study Quality: Fair Conclusion Normal biventricular systolic function. Mild biatrial dilation. Mild MR. Electronically signed by : Barbra Gallegos MD 04/09/2025 14:33:43
== END 2025-04-08 23:59 | disposition home or self-care (01) ==
LOC: RT 14:41
PROVIDERS: PCP Internal Medicine; Visit Provider Nurse Practitioner Family
DX: I34.0 Nonrheumatic mitral (valve) insufficiency (principal); I11.9 Hypertensive heart disease without heart failure; I20.89 Other forms of angina pectoris; E11.9 Type 2 diabetes mellitus without complications; Z82.49 Family history of ischemic heart disease and other diseases of the circulatory system
CPT/HCPCS: 93306

== ENCOUNTER 2025-04-15 08:42 | Day surgery (SDC) | payer BC, MEDICARE, SELFPAY ==
[2025-04-15] VITALS (11 sets, daily range): BP systolic 108–145; BP diastolic 58–74; PULSE 53–74; RESP 16–18; TEMP 36.6; O2SAT 92–99; BMI 32.7
--- NOTE | 2025-04-15 06:58 | IR_ITS ---
APPROVED REPORT Patient Location: Outpatient Audio Visual Director: Garry Phillips, RT (R) PROCEDURES Left heart catheterization Left ventriculogram Selective coronary angiogram INDICATION Accelerated angina pectoris Informed consent was obtained prior to the procedure. COMPLICATIONS NONE Estimated Blood Loss: LESS THAN 10 ML TECHNIQUE One percent lidocaine used to anesthetize the right anterior aspect of the wrist. The right radial artery was accessed via the Seldinger technique. A 6 Stateless sheath was placed in the right radial artery. 2.5 mg of Verapamil, 800 mcg of nitroglycerin, 1mg Lidocaine and 5000 U Heparin were given through the arterial sheath. The JL3 catheter was also used to perform left heart catheterization, left ventriculogram and selective coronary angiogram. At the end of the procedure the sheath was removed good hemostasis was achieved using Traclet band, patient was transferred to the postop holding area in stable condition. ANGIOGRAPHIC RESULTS The left main artery Normal The left anterior descending artery Mild diffuse 10% luminal irregularities The circumflex artery Dominant with diffuse 10% luminal regularities The right coronary artery Nondominant yet still large with a distal concentric 20% stenosis The GUERRERO ventriculogram reveals Preserved at 60% The left ventricular end-diastolic pressure Elevated at 20 mmHg IMPRESSION Mild nonflow limiting coronary artery disease Normal ejection fraction Elevated LVEDP PLAN 1. Medical management 2. Maximize antianginal medications 3. Evaluation of noncardiac symptoms Electronically signed by : Amish Haines MD 04/15/2025 10:35:19
[2025-04-15 09:20] LABS: Hematocrit 38.1 % (42.0-52.0); Hemoglobin 12.8 g/dL (14.1-18.0); Immature Granulocytes % 0.2 %; Mean Corpuscular HGB Conc 33.6 g/dL (31.8-35.4); Mean Corpuscular Hemoglobin 29.8 pg (27.0-31.2); Mean Corpuscular Volume 88.8 fl (80-94); Nucleated Red Blood Cells % 0 %; Platelet Count 169 K/mm3 (142-424); Red Blood Count 4.29 M/mm3 (4.60-6.20); Red Cell Distribution Width-SD 39.8 fL; White Blood Count 5.9 K/mm3 (4.8-10.8)
[2025-04-15 09:22] LABS: Chloride 109 mmol/L (98-107); Sodium 140 mmol/L (136-145)
[2025-04-15 09:23] LABS: Potassium 4.2 mmoL/L (3.5-5.1)
[2025-04-15 09:25] LABS: Blood Urea Nitrogen 17 mg/dl (9-20); Creatinine Clearance Estimated 169 mL/min (50-200); Creatinine,Serum 0.80 mg/dl (0.66-1.25); Estimated Glomerular Filt Rate 99 ml/min (>60); GFR (African American) 120 ML/MIN (>60)
[2025-04-15 09:26] LABS: Anion Gap 11.2 mEq/L (5-15); Calcium 9.1 mg/dl (8.4-10.2); Carbon Dioxide 24 mmol/L (22.0-30.0); Glucose 136 mg/dl (74-100)
[2025-04-15] MEDS: HEPARIN 1,000 UNITS/500ML NS (CATH LAB) 3000 UNIT IV (10:14)
[2025-04-15] MEDS: HEPARIN 1,000 UNITS/ML 10ML VIAL (CATH LAB) 5000 UNIT IV (10:14)
[2025-04-15] MEDS: VERAPAMIL 2.5MG/ML 2ML VIAL 2.5 MG IV (10:14)
[2025-04-15] MEDS: NITROGLYCERIN 800MCG/8ML SYR (CATH LAB) 800 MCG IA (10:14)
[2025-04-15] MEDS: 0.9 % SODIUM CHLORIDE 500 ML 25 ML IV (10:14)
[2025-04-15] MEDS: LIDOCAINE 1% 10ML MDV 10 ML IJ (10:14)
[2025-04-15] MEDS: MIDAZOLAM HCL 1MG/ML 5ML VIAL 1 MG IV ×2 (10:21→10:27)
[2025-04-15] MEDS: FENTANYL 100MCG/2ML VIAL 50 MCG IV ×2 (10:22→10:27)
[2025-04-15] MEDS: IOPAMIDOL-370 (76%);100ML BOTTLE 50 ML IV (13:09)
== END 2025-04-15 13:10 | disposition home or self-care (01) ==
LOC: CATHLAB 08:43
PROVIDERS: PCP Internal Medicine; Visit Provider Internal Medicine
PROC: 4A023N7 Measurement of Cardiac Sampling and Pressure, Left Heart, Percutaneous Approach (ICD-10-PCS; CPT 93452; principal; 2025-04-15 08:45)
DX: I25.118 Atherosclerotic heart disease of native coronary artery with other forms of angina pectoris (principal); I10 Essential (primary) hypertension; E11.9 Type 2 diabetes mellitus without complications; E78.49 Other hyperlipidemia; Z87.891 Personal history of nicotine dependence; Z79.84 Long term (current) use of oral hypoglycemic drugs; Z79.82 Long term (current) use of aspirin; Z79.899 Other long term (current) drug therapy; Z91.040 Latex allergy status; Z82.49 Family history of ischemic heart disease and other diseases of the circulatory system
CPT/HCPCS: 80048; 85025; 93458; C1725; C1769; J1200; J1644; J3010; J7040; Q9967